=== PATIENT | female | born 1950 | race Caucasian/White ===

== ENCOUNTER 2019-12-05 18:24 | Emergency (ER) | payer OTHER, SELFPAY ==
[2019-12-05] VITALS (7 sets, daily range): BP systolic 108–135; BP diastolic 74–94; PULSE 62–109; RESP 13–19; TEMP 36.5–37.2; O2SAT 99–100
--- NOTE | ~2019-12-05 | XR_ITS ---
EXAMINATION: XR hip LT min 3V w AP pelvis EXAM DATE: 12/05/2019 18:58 INDICATION: Fall, left hip pain. TECHNIQUE: Left hip frontal, crosstable lateral projections for interpretation. Frontal projection pe lvis. Comparison is made to prior examination from 06/30/2018. FINDINGS: There is mild symmetric bilateral hip primary osteoarthritis. No evidence of hip avascular necrosis. Sacrum, sacroiliac joints, sacral arcuate lines are intact. There are no acute fractures or dislocations identified. There is no subcutaneous gas. The soft tissue is unremarkable. There are no radiopaque foreign bodies. IMPRESSION: Mild symmetric bilateral hip osteoarthritis. Reviewed, dictated and finalized at location A.
--- NOTE | ~2019-12-05 | CT_ITS ---
EXAMINATION: CT brain wo con, CT cervical spine wo con EXAM DATE: 12/05/2019 19:26 INDICATION: Fall, head injury. TECHNIQUE: Spiral CT of the head was performed without contrast. Axial, coronal and sagittal images were reviewed. Spiral CT of the cervical spine was performed without contrast. Axial images were rev iewed. Coronal and sagittal reformatted images were also reviewed. The dose-length product (DLP) fo r this examination was 529.67 (accession [id number]), 106.41 (accession [id number]) mGy-cm. The exposure was tailored according to patient size, and iterative reconstruction (ASIR) was used as additional dose reduction technique. Comparison is made to prior examination from 04/28/2016. FINDINGS: HEAD CT: There is no acute intraparenchymal hemorrhage. No evidence of intraparenchymal brain mass l esion. No evidence of acute infarction. There is mild periventricular and subcortical hypodensity, n onspecific but probably related to small vessel ischemic disease. There is mild prominence of the s ulci and ventricles related to cerebral atrophy. There is intracranial carotid arteriosclerosis. There is no mass effect or midline shift. There is no obstructive hydrocephalus suspected. There are no extra-axial collections. There are no acute calvarial fractures. The orbits are unremarkable. Soft tissue is unremarkable. The visualized sinuses and mastoid air cells are well aerated. CERVICAL CT: There is no evidence of acute cervical fracture. The odontoid process is intact. Pre- dens space is normal. Prevertebral soft tissue is normal. There are no soft tissue abnormalities id entified. There is no disc space widening or traumatic vertebral body subluxation suspected. Cervic al fusion C3-7. Moderate cervical spondylosis. A detailed level by level evaluation of spondylosis c an be added as addendum if requested. IMPRESSION: 1. No acute intracranial or cervical findings. 2. Mild age-related findings. 3. Intact cervical fusion. Spondylosis. Reviewed, dictated and finalized at location A. IMPRESSION: 1. No acute intracranial or cervical findings. 2. Mild age-related findings. 3. Intact cervical fusion. Spondylosis.
--- NOTE | ~2019-12-05 | XR_ITS ---
EXAMINATION: XR chest 2V EXAM DATE: 12/05/2019 18:58 INDICATION: Weakness, several falls. TECHNIQUE: Frontal and lateral projections of the chest obtained and reviewed. Comparison is made to prior examination from 06/30/2018. FINDINGS: Moderate chronic hyperinflation. No confluent consolidation, pneumothorax or pleural effus ion suspected. Cardiomediastinal silhouette is normal. There are mild bony degenerative changes. Cerv ical fusion hardware. There is no significant interval change. IMPRESSION: 1. Hyperinflation Reviewed, dictated and finalized at location A. IMPRESSION: 1. Hyperinflation
--- NOTE | 2019-12-05 18:29 | ECG_ITS ---
Measurements Intervals [place] Rate: 83 P: 49 WI: 108 QRS: 52 QRSD: 85 T: 62 QT: 330 QTc: 389 Interpretive Statements SINUS RHYTHM WITH SHORT WI INTERVAL BASELINE ARTIFACT- I, II, III, AVR, AVL, AVF, V1-V2 BORDERLINE ECG Electronically Signed On 12-05-2019 19:44:57 CDT by Singh Holliday D.O.
--- NOTE | 2019-12-05 18:42 | PC.NURSE ---
Pt to XRAY via stretcher.
[2019-12-05 18:45] LABS: Basophils Percent Auto 0.4 % (0.2-1.2); Eosinophils Absolute Auto 0.1 K/mm3 (0-0.3); Eosinophils Percent Auto 1.2 % (0-4.4); Hematocrit 36.2 % (37.0-47.0); Hemoglobin 12.2 g/dL (12.0-15.0); Immature Granulocyte Absolute 0.01 K/mm3 (0.00-0.031); Immature Granulocyte Percent A 0.2 % (0-0.5); Lymphocytes Absolute Auto 1.34 K/mm3 (0.9-3.2); Lymphocytes Percent Auto 25.9 % (18.3-44.2); Mean Corpuscular HGB Conc 33.7 g/dl (32-36); Mean Corpuscular Hemoglobin 32.6 pg (26-34); Mean Corpuscular Volume 96.8 fl (80-100); Mean Platelet Volume 10.1 fl (7.4-10.4); Monocytes Absolute Auto 0.4 K/mm3 (0.1-0.6); Monocytes Percent Auto 7.7 % (2.6-8.5); Neutrophils Absolute Auto 3.3 K/mm3 (1.3-6.7); Neutrophils Percent Auto 64.6 % (45.5-73.1); Platelet Count Result 174 k/mm3 (150-375); Red Blood Count 3.74 M/mm3 (4.2-5.4); Red Cell Distribution Width 13.4 % (11.5-14.5); White Blood Count 5.2 K/mm3 (4.5-10.0)
[2019-12-05 18:55] LABS: Alanine Aminotransferase 40 U/L (4-35); Albumin Level 3.8 g/dL (3.5-5.1); Alkaline Phosphatase 53 U/L (38-126); Aspartate Amino Transferase 55 U/L (14-36); Bilirubin,Total 0.7 mg/dL (0.2-1.3); Blood Urea Nitrogen 13 mg/dL (7-17); Calcium 9.4 mg/dL (8.4-10.2); Carbon Dioxide 26 mmol/L (22-30); Chloride 103 mmol/L (98-107); Estimated CRCL calculation 62 ml/min; Estimated Glomerular Filt Rate > 60; Glucose 206 mg/dL (65-105); Potassium 3.7 mmol/L (3.4-5.0); Sodium 135 mmol/L (137-145)
--- NOTE | 2019-12-05 19:11 | ED.FALL ---
HPI - Fall General Chief Complaint: Fall Stated Complaint: BILATERAL LEG PAIN Time Seen by Provider: 12/05/19 18:59 History of Present Illness HPI Narrative: Patient presents with her daughter for weakness and a fall at home 3 days ago. She fell bruising her left hip, and has not been able to walk since. Usually she walks with a walker but now she says her feet will not touch the floor. She has a history of psoriatic arthritis, and has had a cervical fusion. She weighs 210 pounds now she is 126, without trying. She used to smoke, she does not drink or do drugs. She is retired. She has not been sick in the last week or 2. She has decreased her fluid intake because she cannot make it to the bathroom to urinate. She has been wearing a diaper. When she fell on 3 days ago, she needed to call several family members to help her get up. Her previous surgeries include cervical fusion hysterectomy cholecystectomy and right ankle repair. MD complaint: fall Onset (ago): day(s) Fall from: standing Fall witnessed: no Place fall occurred: home Loss of consciousness: none Prolonged down time: yes Symptoms prior to fall: none Context: history of frequent falls Location of injury: other (Left hip) Severity: severe Severity scale (1-10): 10 Quality: aching Associated symptoms (after fall): numbness (in her arms), weakness and unable to walk Related Data Home Medications Medication Instructions Recorded Confirmed fosinopril 10 mg PO DAILY 12/05/19 methotrexate sodium 2.5 mg PO WEEKLY 12/05/19 sulfasalazine 0.5 g PO BID 12/05/19 Allergies Allergy/AdvReac Type Severity Reaction Status Date / Time No Known Allergies Allergy Unverified 06/30/18 11:49 Review of Systems Review of Systems: Narrative: CONSTITUTIONAL: Denies fever, chills, or sweats. EYES: Denies visual changes, redness, or discharge. ENT: Denies rhinorrhea, congestion, sore throat, or otalgia. CARDIOVASCULAR: Denies chest pain, palpitations, or edema. RESPIRATORY: Denies cough or dyspnea. GASTROINTESTINAL: Denies abdominal pain, nausea, vomiting, or diarrhea. GENITOURINARY: Denies dysuria or hematuria. She has not been able to make it to the bathroom and had urinary incontinence. SKIN: Denies rash or itching. MUSCULOSKELETAL: He has pain all over including back pain, joint pain, or myalgia. NEUROLOGIC: Denies headache or weakness. She does have numbness and weakness in her arms. PSYCHIATRIC: Denies anxiety or depression. All systems reviewed & are unremarkable except as noted in HPI and below PMFSH Surgical History Surgical History (Updated 12/05/19 @ 19:22 by Denise Bender MD) History of cervical spinal arthrodesis History of cholecystectomy History of hysterectomy Social History Social History (Updated 12/05/19 @ 19:22 by Denise Bender MD) Smoking status: Former smoker Alcohol intake: never Substance use: never Exam Narrative: Exam Narrative: GENERAL: Well-appearing, well-nourished, and in no acute distress. HEAD: Normocephalic, atraumatic. EYES: PERRLA and EOMI. ENT: Nares clear, no rhinorrhea or epistaxis. Mucous membranes moist. NECK: Supple. CHEST: Clear to auscultation. No respiratory distress. HEART: Regular rate and rhythm. No murmur heard. Normal peripheral pulses. ABDOMEN: Soft, nontender, nondistended, normal active bowel sounds. EXTREMITIES: No edema. Keeps her right leg crossed over her left leg. SKIN: Warm, dry, no rash. Bruises on the left hip the right foot. NEURO: No focal deficits. Alert and oriented x3. PSYCH: Flat affect. Course Reevaluation(s) Reevaluation #1: Several visits to see the patient and her daughter, lastly went in to update them on the transfer to [facility]. This is to see the orthopedic spine service for her cervical stenosis and lumbar stenosis. Date: 12/05/19 Time: 21:56 Consultations Consultation #1: Called while she for the transfer, and the access nurse found that all of her studies a
[2019-12-05 19:14] LABS: Ethanol < 10 mg/dL (<10)
[2019-12-05] MEDS: ONDANSETRON INJ 4 MG/2 ML VIAL IV PUSH (19:29)
[2019-12-05] MEDS: MORPHINE SULFATE 2 MG/ML INJ IV PUSH ×2 (19:29→23:31)
[2019-12-05] MEDS: SODIUM CHLORIDE 0.9% IV 1,000 ML 999 ML IV CONT (19:30)
[2019-12-05 20:17] LABS: Add Urine Microscopic? YES; Appearance Urine Clear (Clear); Bilirubin Urine Negative (Negative); Blood Urine Negative (Negative); Color Urine Yellow (Yellow); Glucose Urine UA Negative (Negative); Ketones Urine Trace mg/dL (Negative); Leukocyte Esterase Ur Negative LEU/UL (Negative); Nitrate Urine Negative (Negative); Protein Urine Negative (Negative); RBC Urine 0-2 /hpf (0-2); Specific Grav Ur 1.012 (1.001-1.035); Urobilinogen Urine Negative mg/dL (<2.0); WBC Urine 0-3 /hpf
[2019-12-05 20:33] LABS: Barbiturate Screen Urine Negative (Negative); Benzodiazepines Screen Urine Negative (Negative)
[2019-12-05 20:36] LABS: Amphetamine Screen Urine Negative (Negative); Cannabinoid Screen Urine Negative (Negative); Cocaine Screen Urine Negative (Negative); Methadone Screen Urine Negative (Negative); Opiate Screen Urine Negative (Negative); Phencyclidine Screen Urine Negative (Negative)
--- NOTE | 2019-12-05 22:34 | PC.NURSE ---
Patient placed in [facility] per EDP Yulia via verbal order read-back.
--- NOTE | 2019-12-05 22:51 | PC.NURSE ---
2236 Called [facility] for transport to [facility]. ETA [phone] Called [facility] for transport to [facility]. 2241 Called [facility] for transport to [facility]. [facility] declined 2250 Called [facility] for transport to [facility]. [facility] declined.
--- NOTE | 2019-12-05 23:04 | PC.NURSE ---
[facility] called and updated eta to 2300 pending any 911 calls.
== END 2019-12-05 23:35 | disposition short-term general hospital (02) ==
PROVIDERS: Emergency Medicine; Emergency Provider Emergency Medicine
DX: R20.2 Paresthesia of skin (principal); R53.1 Weakness; R32 Unspecified urinary incontinence; L40.50 Arthropathic psoriasis, unspecified; S70.02XA Contusion of left hip, initial encounter; M16.0 Bilateral primary osteoarthritis of hip; Z98.1 Arthrodesis status; Z87.891 Personal history of nicotine dependence; W19.XXXA Unspecified fall, initial encounter
CPT/HCPCS: 36415; 51701; 70450; 71046; 72125; 73502; 80053; 80307; 81001; 85025; 93005; 96361; 96374; 96375; 96376; 99285; J2270; J2405; J7030; L0140

== ENCOUNTER 2024-02-03 15:01 | Inpatient (IN) | payer OTHER, SELFPAY ==
--- NOTE | ~2024-02-03 | XR_ITS ---
EXAMINATION: XR chest 1V portable DATE: 02/03/2024 19:16 INDICATION: Altered mental status. Pulmonary edema. TECHNIQUE: A single frontal view of the chest was obtained. COMPARISON: Chest 2 views 12/05/2019 FINDINGS: There is mild atelectasis at the lung bases. No pleural effusion or pneumothorax. The heart size is normal. There are changes of anterior and posterior fusion procedures in cervical thoracic s pine. IMPRESSION: 1. Mild atelectasis at the lung bases. Reviewed, dictated and finalized at location E.
[2024-02-03 15:04] VITALS: BP 144/85; PULSE 56; RESP 16; TEMP 36.7; O2SAT 100
--- NOTE | 2024-02-03 15:48 | ECG_ITS ---
Test Date: 2024-02-03 16:01:40 Measurements Intervals [place] Rate: 53 P: 45 ND: 116 QRS: 29 QRSD: 98 T: 47 QT: 437 QTc: 411 Interpretive Statements SINUS BRADYCARDIA WITH SHORT ND INTERVAL MINIMAL Q WAVES- INF/LAT LEADS BORDERLINE T WAVE ABNORMALITY- ANTERIOR LEADS BASELINE ARTIFACT- I, II, III, AVR, AVL, AVF, V1-6 BORDERLINE ECG No previous ECG available for comparison Electronically Signed On 02-03-2024 16:08:33 CDT by Singh Holliday D.O.
[2024-02-03 16:10] LABS: Basophils Percent Auto 0.5 % (0.2-1.2); Eosinophils Absolute Auto 0.2 K/mm3 (0-0.3); Eosinophils Percent Auto 3.8 % (0-4.4); Hematocrit 39.4 % (37.0-47.0); Hemoglobin 13.2 g/dL (12.0-15.0); Immature Granulocyte Absolute 0.01 K/mm3 (0.00-0.031); Immature Granulocyte Percent A 0.3 % (0-0.5); Lymphocytes Absolute Auto 1.09 K/mm3 (0.9-3.2); Lymphocytes Percent Auto 27.8 % (18.3-44.2); Mean Corpuscular HGB Conc 33.5 g/dl (32-36); Mean Corpuscular Hemoglobin 32.1 pg (26-34); Mean Corpuscular Volume 95.9 fl (80-100); Mean Platelet Volume 10.2 fl (7.4-10.4); Monocytes Absolute Auto 0.4 K/mm3 (0.1-0.6); Monocytes Percent Auto 10.7 % (2.6-8.5); Neutrophils Absolute Auto 2.2 K/mm3 (1.3-6.7); Neutrophils Percent Auto 56.9 % (45.5-73.1); Platelet Count Result 197 k/mm3 (150-375); Red Blood Count 4.11 M/mm3 (4.2-5.4); Red Cell Distribution Width 14.2 % (11.5-14.5); White Blood Count 3.9 K/mm3 (4.5-10.0)
[2024-02-03 16:20] LABS: Prothrombin Time 13.8 Seconds (11.1-14.7)
[2024-02-03 16:21] LABS: Partial Thromboplastin Time 25.3 Seconds (22.3-36.8)
[2024-02-03 16:28] LABS: Alanine Aminotransferase 33 U/L (6-35); Albumin Level 4.3 g/dL (3.5-5.1); Alkaline Phosphatase 64 U/L (38-126); Anion Gap 9 mmol/L (4-12); Aspartate Amino Transferase 36 U/L (14-36); Bilirubin,Total 0.8 mg/dL (0.2-1.3); Blood Urea Nitrogen 19 mg/dL (7-17); Calcium 9.7 mg/dL (8.4-10.2); Carbon Dioxide 35 mmol/L (22-30); Chloride 97 mmol/L (98-107); Estimated Glomerular Filt Rate > 60; Glucose 90 mg/dL (65-110); Potassium 2.7 mmol/L (3.4-5.0); Sodium 141 mmol/L (137-145)
[2024-02-03 16:42] VITALS: BP 117/83; PULSE 100; RESP 18; O2SAT 95
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
[2024-02-03 17:41] VITALS: BP 128/81; PULSE 51; RESP 16; O2SAT 100
[2024-02-03 18:08] LABS: Add Urine Microscopic? YES; Appearance Urine Turbid (Clear); Bacteria Urine 4+ /hpf; Bilirubin Urine Negative (Negative); Blood Urine Negative (Negative); Color Urine Dark Yellow (Yellow); Glucose Urine UA Negative (Negative); Ketones Urine Negative (Negative); Leukocyte Esterase Ur 2+ LEU/UL (Negative); Need Manual Microscopic Reviewed; Nitrate Urine Negative (Negative); Non Pathogenic Casts 0-2; Protein Urine Trace mg/dL (Negative); Specific Grav Ur 1.023 (1.001-1.035); Squamous Epithelial Cell Urine Many /hpf (Few); WBC Urine >100 /hpf (0-3)
[2024-02-03] MEDS: SODIUM CHLORIDE 0.9% IV 1,000 ML 999 ML IV CONT (18:58)
[2024-02-03] MEDS: cefTRIAXone 2 GM/NS 100 ML 2 GM/100 ML BAG IVPB (19:00)
[2024-02-03] MEDS: POTASSIUM CHLORIDE 20 MEQ PACKET (FOR LIQUID) 40 MEQ PO (19:02)
--- NOTE | 2024-02-03 19:27 | PM.IMHP ---
H&P: HPI History of Present Illness Date/Time: 02/03/24 19:27 Chief Complaint: ams Narrative: This is a 73-year-old female with past medical history significant for dementia, osteoporosis, dyslipidemia. patient was brought to the emergency room due to being unable to care for self she lives alone family was concerned for the patient's progressively worsening dementia unable to care for self. Here in emergency room preliminary workup was significant for urinalysis was numerous WBCs. patient is unable to contribute in a meaningful way to history taking EXAMINATION: XR chest 1V portable DATE: 02/03/2024 19:16 INDICATION: Altered mental status. Pulmonary edema. TECHNIQUE: A single frontal view of the chest was obtained. COMPARISON: Chest 2 views 12/05/2019 FINDINGS: There is mild atelectasis at the lung bases. No pleural effusion or pneumothorax. The heart size is normal. There are changes of anterior and posterior fusion procedures in cervical thoracic spine. IMPRESSION: 1. Mild atelectasis at the lung bases. Review of Systems Review of Systems: ROS unobtainable: Yes unobtainable due to mental status [facility] Surgical History Surgical History History of cervical spinal arthrodesis History of cholecystectomy History of hysterectomy Family History Family History (Updated 02/03/24 @ 21:20 by Loli Shore RN) Sibling Asthma Father Dementia Mother Breast cancer Social History Social History Smoking status: Former smoker Alcohol intake: never Substance use: never Do You Feel Safe in your Home?: Yes Lack of Transportation: No Lack of Food: Never True Current Housing: I Have Housing Concerned About Future Housing: No Difficulty Paying Gas/Electric Bills: No Difficulty Paying for Meds: No Currently Unemployed: No Education: High School Diploma/GED Difficulty w/ Childcare or Family Care: No Gender identity (if verbalized by the patient): Female Spiritual care concerns: No Meds Home Medications and Allergies Home Medications Medication Instructions Recorded Confirmed Type sulfasalazine 500 mg tablet 0.5 g PO BID 12/05/19 02/03/24 History Aspirin Low-Strength 81 mg PO DAILY 02/03/24 02/03/24 History alendronate 70 mg tablet 70 mg PO WEEKLY 02/03/24 02/03/24 History atorvastatin 10 mg tablet 10 mg PO DAILY 02/03/24 02/03/24 History cholecalciferol (vitamin D3) 25 25 mcg PO DAILY 02/03/24 02/03/24 History mcg (1,000 unit) tablet donepezil 5 mg tablet 5 mg PO DAILY 02/03/24 02/03/24 History duloxetine 20 mg capsule,delayed 20 mg PO DAILY 02/03/24 02/03/24 History release hydrocortisone 2.5 % lotion 2.5 applic topical BID 02/03/24 02/03/24 History pyridoxine (vitamin B6) 100 mg 100 mg PO DAILY 02/03/24 02/03/24 History tablet quetiapine 25 mg tablet 25 mg PO HS 02/03/24 02/03/24 History trazodone 50 mg tablet 50 mg PO HS 02/03/24 02/03/24 History Allergies Allergy/AdvReac Type Severity Reaction Status Date / Time No Known Allergies Allergy Unverified 06/30/18 11:49 Vital Signs Vital Signs - 24 hr 02/03/24 15:04 02/03/24 16:42 02/03/24 17:41 Temperature 98.0 F Pulse Rate 56 L 100 51 L Respiratory Rate 16 18 16 Blood Pressure 144/85 H 117/83 128/81 Pulse Oximetry 100 95 100 Oxygen Delivery Room Air Exam Narrative: lying in bed Const: General: comfortable, no acute distress, well developed, alert, awake and average body habitus Nutritional Appearance: average body habitus Orientation/consciousness: oriented to person HENMT: Head: normal to inspection, normocephalic and atraumatic Ears: hearing grossly normal bilaterally Face/Nose/Sinus: normal facial exam Face and sinus: normal facial exam Eyes: General: appearance normal, both eyes and all related structures Pupils: Equal, round and reactive pupils present
[2024-02-03] MEDS: POTASSIUM CHLORIDE INJ 40 MEQ in SODIUM CHLORIDE 0.9% IV 500 ML 130 MEQ IVPB (19:46)
[2024-02-03 19:51] VITALS: BP 131/80; PULSE 57; RESP 16; O2SAT 100
[2024-02-03 20:47] LABS: NT Pro B Type Natriuretic Pept 59 pg/mL (19.9-100); Troponin I < 0.012 ng/mL (0.000-0.034)
[2024-02-03 21:10] VITALS: BP 140/67; PULSE 56; RESP 16; TEMP 36.6; O2SAT 98; BMI 24.8
--- NOTE | 2024-02-03 21:14 | ADMGEN ---
This patient, Whit Dia, was admitted to Medical Room 241-01. Patient/family oriented to hospital policies and general routines including ID bracelet, bed and alarms, visiting hours, pain management, procedures, bathroom and other care routines, personal items, smoking policy, room service/diet, and visiting hours. Information on how to activate the Rapid Response Team has been discussed. Patient/Family are encouraged to report perceived risks to care and to ask questions if they do not understand what they are told or what they should do.
[2024-02-03 23:33] LABS: Troponin I < 0.012 ng/mL (0.000-0.034)
[2024-02-04] VITALS (10 sets, daily range): BP systolic 124–129; BP diastolic 65–71; PULSE 52–74; RESP 12–18; TEMP 36.4–36.8; O2SAT 98–100
[2024-02-04 02:40] LABS: Troponin I < 0.012 ng/mL (0.000-0.034)
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
[2024-02-04] MEDS: ASPIRIN 81 MG CHEWABLE TABLET PO (09:45)
[2024-02-04] MEDS: DULoxetine HCL 20 MG CAPSULE.DR PO (09:45)
[2024-02-04] MEDS: CHOLECALCIFEROL 1,000 UNITS TABLET 1000 UNITS PO (09:45)
[2024-02-04] MEDS: PYRIDOXINE HCL 50 MG TABLET 100 MG PO (09:45)
[2024-02-04] MEDS: DONEPEZIL HCL 5 MG TABLET PO (09:45)
[2024-02-04] MEDS: sulfaSALAzine 500 MG TABLET PO ×2 (09:46→20:56)
[2024-02-04] MEDS: ATORVASTATIN 10 MG TABLET PO (09:46)
[2024-02-04 10:45] LABS: Basophils Percent Auto 0.6 % (0.2-1.2); Eosinophils Absolute Auto 0.1 K/mm3 (0-0.3); Eosinophils Percent Auto 2.3 % (0-4.4); Hematocrit 39.9 % (37.0-47.0); Hemoglobin 13.7 g/dL (12.0-15.0); Immature Granulocyte Absolute 0.02 K/mm3 (0.00-0.031); Immature Granulocyte Percent A 0.4 % (0-0.5); Lymphocytes Absolute Auto 0.77 K/mm3 (0.9-3.2); Lymphocytes Percent Auto 14.6 % (18.3-44.2); Mean Corpuscular HGB Conc 34.3 g/dl (32-36); Mean Corpuscular Hemoglobin 32.3 pg (26-34); Mean Corpuscular Volume 94.1 fl (80-100); Mean Platelet Volume 10.2 fl (7.4-10.4); Monocytes Absolute Auto 0.4 K/mm3 (0.1-0.6); Monocytes Percent Auto 8.2 % (2.6-8.5); Neutrophils Absolute Auto 3.9 K/mm3 (1.3-6.7); Neutrophils Percent Auto 73.9 % (45.5-73.1); Platelet Count Result 184 k/mm3 (150-375); Red Blood Count 4.24 M/mm3 (4.2-5.4); Red Cell Distribution Width 13.9 % (11.5-14.5); White Blood Count 5.3 K/mm3 (4.5-10.0)
[2024-02-04 10:56] LABS: Alanine Aminotransferase 28 U/L (6-35); Albumin Level 3.9 g/dL (3.5-5.1); Alkaline Phosphatase 55 U/L (38-126); Anion Gap 10 mmol/L (4-12); Aspartate Amino Transferase 35 U/L (14-36); Bilirubin,Total 0.8 mg/dL (0.2-1.3); Blood Urea Nitrogen 14 mg/dL (7-17); Calcium 9.1 mg/dL (8.4-10.2); Carbon Dioxide 25 mmol/L (22-30); Chloride 105 mmol/L (98-107); Estimated CRCL calculation 70 ml/min; Estimated Glomerular Filt Rate > 60; Glucose 120 mg/dL (65-110); Potassium 3.5 mmol/L (3.4-5.0); Sodium 140 mmol/L (137-145)
[2024-02-04] MEDS: cefTRIAXone 2 GM/NS 100 ML 2 GM/100 ML BAG IVPB (17:43)
[2024-02-04] MEDS: ENOXAPARIN 40 MG/0.4 ML SYRINGE SUB-Q (17:43)
[2024-02-04] MEDS: QUEtiapine FUMARATE 25 MG TABLET PO (20:56)
[2024-02-04] MEDS: traZODone HCL 50 MG TABLET PO (20:56)
[2024-02-05] VITALS (10 sets, daily range): BP systolic 128–143; BP diastolic 75–83; PULSE 54–89; RESP 16–20; TEMP 36.5–36.6; O2SAT 97–100
[2024-02-05 04:46] LABS: Basophils Percent Auto 0.5 % (0.2-1.2); Eosinophils Absolute Auto 0.2 K/mm3 (0-0.3); Eosinophils Percent Auto 4.4 % (0-4.4); Hematocrit 36.9 % (37.0-47.0); Hemoglobin 12.3 g/dL (12.0-15.0); Immature Granulocyte Absolute 0.01 K/mm3 (0.00-0.031); Immature Granulocyte Percent A 0.2 % (0-0.5); Lymphocytes Absolute Auto 1.23 K/mm3 (0.9-3.2); Lymphocytes Percent Auto 28.7 % (18.3-44.2); Mean Corpuscular HGB Conc 33.3 g/dl (32-36); Mean Corpuscular Hemoglobin 31.5 pg (26-34); Mean Corpuscular Volume 94.6 fl (80-100); Mean Platelet Volume 10.6 fl (7.4-10.4); Monocytes Absolute Auto 0.4 K/mm3 (0.1-0.6); Monocytes Percent Auto 9.8 % (2.6-8.5); Neutrophils Absolute Auto 2.4 K/mm3 (1.3-6.7); Neutrophils Percent Auto 56.4 % (45.5-73.1); Platelet Count Result 153 k/mm3 (150-375); Red Cell Distribution Width 14.2 % (11.5-14.5); White Blood Count 4.3 K/mm3 (4.5-10.0)
[2024-02-05 05:01] LABS: Alanine Aminotransferase 22 U/L (6-35); Alkaline Phosphatase 50 U/L (38-126); Anion Gap 7 mmol/L (4-12); Aspartate Amino Transferase 26 U/L (14-36); Bilirubin,Total 0.4 mg/dL (0.2-1.3); Blood Urea Nitrogen 12 mg/dL (7-17); Carbon Dioxide 30 mmol/L (22-30); Chloride 103 mmol/L (98-107); Estimated CRCL calculation 61 ml/min; Estimated Glomerular Filt Rate > 60; Glucose 79 mg/dL (65-110); Potassium 3.4 mmol/L (3.4-5.0); Sodium 140 mmol/L (137-145)
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
[2024-02-05] MEDS: DULoxetine HCL 20 MG CAPSULE.DR PO (08:24)
[2024-02-05] MEDS: ATORVASTATIN 10 MG TABLET PO (08:25)
[2024-02-05] MEDS: CHOLECALCIFEROL 1,000 UNITS TABLET 1000 UNITS PO (08:25)
[2024-02-05] MEDS: PYRIDOXINE HCL 50 MG TABLET 100 MG PO (08:25)
[2024-02-05] MEDS: DONEPEZIL HCL 5 MG TABLET PO (08:25)
[2024-02-05] MEDS: sulfaSALAzine 500 MG TABLET PO ×2 (08:25→20:34)
[2024-02-05] MEDS: ASPIRIN 81 MG CHEWABLE TABLET PO (08:25)
[2024-02-05] MEDS: traZODone HCL 50 MG TABLET PO (20:34)
[2024-02-05] MEDS: SULFAMETHOXAZOLE/TRIMETHOPRIM 800/160 MG DS TABLET 1 TAB PO (20:34)
[2024-02-05] MEDS: QUEtiapine FUMARATE 25 MG TABLET PO (20:34)
[2024-02-06] VITALS (8 sets, daily range): BP systolic 117–145; BP diastolic 72–85; PULSE 63–89; RESP 16–18; TEMP 36.3–36.9; O2SAT 95–99; BMI 24.8
[2024-02-06 05:06] LABS: Basophils Percent Auto 0.6 % (0.2-1.2); Eosinophils Absolute Auto 0.2 K/mm3 (0-0.3); Eosinophils Percent Auto 4.7 % (0-4.4); Hematocrit 36.9 % (37.0-47.0); Hemoglobin 12.3 g/dL (12.0-15.0); Immature Granulocyte Absolute 0.02 K/mm3 (0.00-0.031); Immature Granulocyte Percent A 0.4 % (0-0.5); Lymphocytes Absolute Auto 1.23 K/mm3 (0.9-3.2); Lymphocytes Percent Auto 26.4 % (18.3-44.2); Mean Corpuscular HGB Conc 33.3 g/dl (32-36); Mean Corpuscular Hemoglobin 31.8 pg (26-34); Mean Corpuscular Volume 95.3 fl (80-100); Mean Platelet Volume 10.7 fl (7.4-10.4); Monocytes Absolute Auto 0.6 K/mm3 (0.1-0.6); Monocytes Percent Auto 12.4 % (2.6-8.5); Neutrophils Absolute Auto 2.6 K/mm3 (1.3-6.7); Neutrophils Percent Auto 55.5 % (45.5-73.1); Platelet Count Result 154 k/mm3 (150-375); Red Blood Count 3.87 M/mm3 (4.2-5.4); Red Cell Distribution Width 14.2 % (11.5-14.5); White Blood Count 4.7 K/mm3 (4.5-10.0)
[2024-02-06 05:22] LABS: Alanine Aminotransferase 19 U/L (6-35); Alkaline Phosphatase 49 U/L (38-126); Anion Gap 6 mmol/L (4-12); Aspartate Amino Transferase 25 U/L (14-36); Bilirubin,Total 0.7 mg/dL (0.2-1.3); Blood Urea Nitrogen 9 mg/dL (7-17); Calcium 9.1 mg/dL (8.4-10.2); Carbon Dioxide 29 mmol/L (22-30); Chloride 105 mmol/L (98-107); Estimated CRCL calculation 61 ml/min; Estimated Glomerular Filt Rate > 60; Glucose 85 mg/dL (65-110); Potassium 3.3 mmol/L (3.4-5.0); Sodium 140 mmol/L (137-145)
[2024-02-06] MEDS: SULFAMETHOXAZOLE/TRIMETHOPRIM 800/160 MG DS TABLET 1 TAB PO (08:31)
[2024-02-06] MEDS: CHOLECALCIFEROL 1,000 UNITS TABLET 1000 UNITS PO (08:31)
[2024-02-06] MEDS: ATORVASTATIN 10 MG TABLET PO (08:31)
[2024-02-06] MEDS: DONEPEZIL HCL 5 MG TABLET PO (08:31)
[2024-02-06] MEDS: PYRIDOXINE HCL 50 MG TABLET 100 MG PO (08:32)
[2024-02-06] MEDS: ASPIRIN 81 MG CHEWABLE TABLET PO (08:32)
[2024-02-06] MEDS: DULoxetine HCL 20 MG CAPSULE.DR PO (08:32)
[2024-02-06] MEDS: POTASSIUM CHLORIDE 20 MEQ ER TABLET 40 MEQ PO (08:32)
[2024-02-06] MEDS: sulfaSALAzine 500 MG TABLET PO (08:33)
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
== END 2024-02-06 20:55 | DRG 690 ==
LOC: ANHED 16:43 → ANH2MED 20:44
PROVIDERS: Admitting Provider Internal Medicine; Emergency Provider Emergency Medicine; PCP Physician Assistant; Visit Provider Student in an Organized Health Care Education/Training Program
DX: N39.0 Urinary tract infection, site not specified (principal); Z16.11 Resistance to penicillins; Z16.29 Resistance to other single specified antibiotic; B95.7 Other staphylococcus as the cause of diseases classified elsewhere; F03.90 Unspecified dementia, unspecified severity, without behavioral disturbance, psychotic disturbance, mood disturbance, and anxiety; E87.6 Hypokalemia; E78.5 Hyperlipidemia, unspecified; M81.0 Age-related osteoporosis without current pathological fracture; W19.XXXA Unspecified fall, initial encounter; Z87.891 Personal history of nicotine dependence; Z98.1 Arthrodesis status; Z90.49 Acquired absence of other specified parts of digestive tract; Z90.710 Acquired absence of both cervix and uterus
CPT/HCPCS: 36415; 71045; 80053; 81001; 83880; 84484; 85025; 85610; 85730; 87086; 87181; 93005; 96365; 97110; 97161; 97165; 97530; 97535; 99285; A9270; J0696; J1650; J3480; J7030; J7040

== ENCOUNTER 2024-03-02 05:03 | Emergency (ER) | payer OTHER, SELFPAY ==
--- NOTE | ~2024-03-02 | CT_ITS ---
CT head without contrast Indication: Head injury Technique: Serial scans were obtained through the brain without the administration of contrast. Dose reduction technique was used on this scan by utilizing automated exposure control and iterative recon struction technique. The dose-length product (DLP) was 529.67 mGy-cm. Findings: There is no evidence of intracranial hemorrhage, mass lesion, or acute infarct. The ventri cles and subarachnoid spaces are unremarkable. Mild low attenuation regions are seen within the periv entricular white matter bilaterally, likely representing changes from chronic microvascular ischemic disease. There is no evidence of edema, mass effect or midline shift. The visualized paranasal sinu ses and mastoid air cells are clear. Impression: No intracranial hemorrhage, mass, or acute infarct. Mild chronic white matter changes, as above. Reviewed, dictated and finalized at location . Impression: No intracranial hemorrhage, mass, or acute infarct. Mild chronic white matter changes, as above.
--- NOTE | ~2024-03-02 | CT_ITS ---
CT Facial Bones and Cervical Spine Clinical Indication: Head injury Technique: Contiguous axial scans were obtained through the facial bones and cervical spine followed by coronal and sagittal reconstructions. Dose reduction technique was used on this scan by utilizing automated exposure control and iterative reconstruction technique. The dose-length product (DLP) was 220.64 mGy-cm. COMPARISON: 12/05/2019 Findings: CT facial bones: No fractures are identified. The visualized paranasal sinuses are clear. Intraorbita l soft tissues appear normal. CT cervical spine: No fractures or subluxation. There is anterior fusion from C3 through C7. There i s posterior fusion from the C2-T1, with laminectomy defects of C3-C6. There are probable disc prosthe ses at C3-C4, C4-C5, C5-C6, and possibly C6-C7. Probable mild bilateral foraminal narrowing present a t C3-C4. There is probable bilateral neural foraminal narrowing at C5-C6 and C6-C7. No prevertebral s oft tissue swelling. Impression: No fracture is seen in the facial bones. No fracture or subluxation of the cervical spine. Extensive anterior and posterior fusion of the cervical spine, with laminectomies from C3 through C6. Please see details above. Reviewed, dictated and finalized at location . Impression: No fracture is seen in the facial bones. No fracture or subluxation of the cervical spine. Extensive anterior and posterior fusion of the cervical spine, with laminectomi es from C3 through C6. Please see details above.
[2024-03-02 05:02] VITALS: BP 138/92; PULSE 64; RESP 12; TEMP 36.7; O2SAT 100
[2024-03-02 05:10] VITALS: BP 138/92; PULSE 64; RESP 13; TEMP 36.7; O2SAT 100
--- NOTE | 2024-03-02 05:57 | ED.FALL ---
HPI - Fall General Chief Complaint: Fall Stated Complaint: GLF, ON ASA Source: patient and EMS Mode of arrival: EMS Limitations: no limitations History of Present Illness HPI Narrative: This is a 73-year-old female, with history of dementia with baseline A&Ox2, brought in by EMS from her custodial after an unwitnessed ground level fall. The patient states she was standing to use the restroom, when her unlocked wheelchair rolled away from her. She states she fell striking the right cheek on the ground but did not lose consciousness. She states she takes aspirin daily. She complains of mild, dull right cheek pain but has no other complaints at this time. Related Data Home Medications Medication Instructions Recorded Confirmed sulfasalazine 500 mg tablet 0.5 g PO BID 12/05/19 02/03/24 Aspirin Low-Strength 81 mg PO DAILY 02/03/24 02/03/24 alendronate 70 mg tablet 70 mg PO WEEKLY 02/03/24 02/03/24 atorvastatin 10 mg tablet 10 mg PO DAILY 02/03/24 02/03/24 cholecalciferol (vitamin D3) 25 25 mcg PO DAILY 02/03/24 02/03/24 mcg (1,000 unit) tablet donepezil 5 mg tablet 5 mg PO DAILY 02/03/24 02/03/24 duloxetine 20 mg capsule,delayed 20 mg PO DAILY 02/03/24 02/03/24 release hydrocortisone 2.5 % lotion 2.5 applic topical BID 02/03/24 02/03/24 pyridoxine (vitamin B6) 100 mg 100 mg PO DAILY 02/03/24 02/03/24 tablet quetiapine 25 mg tablet 25 mg PO HS 02/03/24 02/03/24 trazodone 50 mg tablet 50 mg PO HS 02/03/24 02/03/24 Allergies Allergy/AdvReac Type Severity Reaction Status Date / Time No Known Allergies Allergy Unverified 06/30/18 11:49 Review of Systems Review of Systems: All systems reviewed & are unremarkable except as noted in HPI and below PMFSH Past Medical History Medical History Dementia Psoriatic arthritis Surgical History Surgical History History of cervical spinal arthrodesis History of cholecystectomy History of hysterectomy Family History Family History Sibling Asthma Father Dementia Mother Breast cancer Social History Social History Smoking status: Former smoker Alcohol intake: never Substance use: never Do You Feel Safe in your Home?: Yes Lack of Transportation: No Lack of Food: Never True Current Housing: I Have Housing Concerned About Future Housing: No Difficulty Paying Gas/Electric Bills: No Difficulty Paying for Meds: No Currently Unemployed: No Education: High School Diploma/GED Difficulty w/ Childcare or Family Care: No Gender identity (if verbalized by the patient): Female Spiritual care concerns: No Exam Narrative: GENERAL: Well-developed, well-nourished, and in no acute distress. HEAD: Normocephalic, mild erythema and swelling over the right cheek. EYES: PERRLA and EOMI. ENT: Nares clear, no rhinorrhea or epistaxis. Mucous membranes moist. Oropharynx without tonsillar hypertrophy exudate or other lesions. NECK: Supple. No midline spine tenderness to palpation, no step-off or crepitus CHEST: Clear to auscultation. No respiratory distress. No wheezes rales or rhonchi HEART: Regular rate and rhythm. No murmur heard. Normal peripheral pulses. ABDOMEN: Soft, nontender, nondistended, normal active bowel sounds. BACK: No midline spine tenderness to palpation, no step-off or crepitus EXTREMITIES: Normal range of motion. No edema. SKIN: Warm, dry, no rash. NEURO: Alert and oriented x2. No focal deficit. Moving all 4 limbs spontaneously. Sensation intact bilaterally, cranial nerves 2-12 intact, no noted ataxia PSYCH: Normal mood and affect. Course Course Emergency Course: 06:20 - CT head negative for intracranial hemorrhage or skull fracture. CT cervical spine negative for fracture or dislocation. CT face negati
[2024-03-02] MEDS: ACETAMINOPHEN 500 MG TABLET 1000 MG PO (06:07)
[2024-03-02 09:15] VITALS: BP 142/87
== END 2024-03-02 09:17 ==
PROVIDERS: Emergency Provider Preventive Medicine Aerospace Medicine; PCP Physician Assistant
DX: S06.0X0A Concussion without loss of consciousness, initial encounter (principal); S00.83XA Contusion of other part of head, initial encounter; F03.90 Unspecified dementia, unspecified severity, without behavioral disturbance, psychotic disturbance, mood disturbance, and anxiety; Z87.891 Personal history of nicotine dependence; W18.39XA Other fall on same level, initial encounter; Y92.129 Unspecified place in nursing home as the place of occurrence of the external cause
CPT/HCPCS: 70450; 70486; 72125; 99284; A9270

== ENCOUNTER 2024-04-26 22:08 | Observation (INO) | payer OTHER, SELFPAY ==
--- NOTE | ~2024-04-26 | CT_ITS ---
EXAMINATION: CT abdomen pelvis w con DATE: 04/26/2024 23:42 INDICATION: Abdominal pain. TECHNIQUE: Computed tomography (CT) of the abdomen and pelvis was performed with 100 mL Omnipaque 350 intravenous contrast. Automated exposure control and iterative reconstruction technique were employe d. The dose-length product was 611.05 mGy-cm. COMPARISON: CT abdomen and pelvis 03/19/2016 FINDINGS: The visualized portions of the lung bases demonstrate mild atelectasis. No pleural effusion . The heart size is normal. No pericardial effusion. There are cysts in the liver measuring up to 20 mm. The gallbladder is absent. The spleen, pancreas, adrenal glands, and left kidney are normal. Ther e is a 5.3 cm cyst in right kidney. There are no dilated loops of bowel. The appendix is not visualiz ed. There are no pathologically enlarged lymph nodes. There is no free intraperitoneal fluid. There i s moderate lumbar spondylosis. IMPRESSION: 1. No etiology for the patient's symptoms. Reviewed, dictated and finalized at location A.
--- NOTE | ~2024-04-26 | CT_ITS ---
EXAMINATION: CT brain wo con DATE: 04/26/2024 23:42 INDICATION: Altered mental status. TECHNIQUE: Computed tomography (CT) of the head was performed without intravenous contrast. The mA wa s adjusted according to patient size. Iterative reconstruction technique was employed. The dose-lengt h product was 1592.49 mGy-cm. COMPARISON: Head CT 03/02/2024 FINDINGS: There are scattered areas of low attenuation in the cerebral white matter. There is no intr acranial hemorrhage, acute infarction, or abnormal intracranial mass lesion. The ventricles are ai l in size. The orbits are normal. The paranasal sinuses are clear. The mastoid air cells are normal. IMPRESSION: 1. Stable moderate nonspecific cerebral white matter disease, which likely represents chronic small v essel ischemic disease. Reviewed, dictated and finalized at location A. IMPRESSION: 1. Stable moderate nonspecific cerebral white matter disease, which likely repr esents chronic small vessel ischemic disease.
--- NOTE | ~2024-04-26 | XR_ITS ---
EXAMINATION: XR hip RT 2V w AP pelvis DATE: 04/26/2024 23:23 INDICATION: Right hip pain. TECHNIQUE: An anteroposterior view of the pelvis and 2 views of right hip were obtained. COMPARISON: Pelvis radiograph 12/05/2019 FINDINGS: Bone alignment is normal. No fracture. There is mild osteoarthritis of the hips. There is m oderate lumbar spondylosis. IMPRESSION: 1. Mild osteoarthritis of the hips. Reviewed, dictated and finalized at location A.
--- NOTE | ~2024-04-26 | XR_ITS ---
EXAMINATION: XR chest 1V DATE: 04/26/2024 23:23 INDICATION: Cough. TECHNIQUE: A single frontal view of the chest was obtained. COMPARISON: Chest single view 02/03/2024 FINDINGS: There are lucencies in the lungs, consistent with emphysema. No pleural effusion or pneumot horax. The heart size is normal. There are changes of anterior fusion procedure in cervical spine and posterior fusion procedure in cervical thoracic spine. IMPRESSION: 1. Emphysema. Reviewed, dictated and finalized at location A. IMPRESSION: 1. Emphysema.
--- NOTE | ~2024-04-26 | US_ITS ---
EXAMINATION:US venous doppler LE BI INDICATION:Leg swelling and tenderness TECHNIQUE: Multiple grayscale, color flow and Doppler images of the right and left lower extremity de ep venous systems were obtained and reviewed. COMPARISON:No prior studies for comparison. FINDINGS: The common femoral, superficial femoral and popliteal veins demonstrate normal respiratory variation, augmentation and compressibility. Color flow is also seen within the posterior tibial, pe roneal, greater saphenous and profunda veins. IMPRESSION: 1: No lower extremity deep venous thrombosis. Reviewed, dictated and finalized at location B.
--- NOTE | ~2024-04-26 | MR_ITS ---
MRI of the brain Clinical History: Altered mental status Technique: Axial and sagittal T1-weighted images were acquired. These were followed by axial T2-weigh ember, diffusion weighted, gradient, and FLAIR images. Following intravenous administration of 14 cc Mu ltiHance gadolinium, T1-weighted fat-sat imaging was performed in the axial and coronal planes. COMPARISON: 02/12/2015 Findings: Exam degraded by motion artifact. No evidence for acute infarct, intracranial hemorrhage, o r mass lesion. There are probable moderate to advanced chronic microvascular ischemic changes in the periventricular white matter bilaterally. Ventricles and subarachnoid spaces are minimally dilated. Orbits are unremarkable. Paranasal sinuses and mastoid air cells are clear. Major intracranial flow voids appear intact. Sagittal midline structures appear intact. No abnormal postcontrast enhancement identified. IMPRESSION: No acute infarct, intracranial hemorrhage, or mass lesion identified. Exam is somewhat degraded by mo tion artifact. Probable moderate to advanced chronic microvascular ischemic changes. Reviewed, dictated and finalized at location . IMPRESSION: No acute infarct, intracranial hemorrhage, or mass lesion identified. Exam is s omewhat degraded by motion artifact. Probable moderate to advanced chronic microvascular ischemic changes.
[2024-04-26 22:10] VITALS: PULSE 62; RESP 15; TEMP 36.2; O2SAT 96
--- NOTE | 2024-04-26 22:14 | ECG_ITS ---
Test Date: 2024-04-26 22:23:17 Measurements Intervals [place] Rate: 48 P: 82 NC: 126 QRS: 31 QRSD: 98 T: 40 QT: 424 QTc: 381 Interpretive Statements SINUS BRADYCARDIA Compared to ECG 02/03/2024 16:01:40 Short NC interval no longer present Electronically Signed On 04-27-2024 10:39:51 CDT by Duane Portillo M.D.
[2024-04-26 22:28] LABS: Basophils Percent Auto 0.3 % (0.2-1.2); Eosinophils Absolute Auto 0.1 K/mm3 (0-0.3); Eosinophils Percent Auto 1.9 % (0-4.4); Hematocrit 40.4 % (37.0-47.0); Hemoglobin 13.6 g/dL (12.0-15.0); Immature Granulocyte Absolute 0.01 K/mm3 (0.00-0.031); Immature Granulocyte Percent A 0.2 % (0-0.5); Lymphocytes Absolute Auto 1.21 K/mm3 (0.9-3.2); Lymphocytes Percent Auto 21.1 % (18.3-44.2); Mean Corpuscular HGB Conc 33.7 g/dl (32-36); Mean Corpuscular Hemoglobin 32.2 pg (26-34); Mean Corpuscular Volume 95.7 fl (80-100); Mean Platelet Volume 10.5 fl (7.4-10.4); Monocytes Absolute Auto 0.6 K/mm3 (0.1-0.6); Monocytes Percent Auto 10.1 % (2.6-8.5); Neutrophils Absolute Auto 3.8 K/mm3 (1.3-6.7); Neutrophils Percent Auto 66.4 % (45.5-73.1); Platelet Count Result 160 k/mm3 (150-375); Red Blood Count 4.22 M/mm3 (4.2-5.4); Red Cell Distribution Width 13.3 % (11.5-14.5); White Blood Count 5.7 K/mm3 (4.5-10.0)
[2024-04-26 22:38] LABS: Lactic Acid Reflex 0.9 mmol/L (0.7-2.0)
[2024-04-26 22:39] LABS: Add Urine Microscopic? NO; Alanine Aminotransferase 24 U/L (6-35); Albumin Level 3.9 g/dL (3.5-5.1); Alkaline Phosphatase 48 U/L (38-126); Anion Gap 4 mmol/L (4-12); Appearance Urine Clear (Clear); Aspartate Amino Transferase 35 U/L (14-36); Bilirubin Urine Negative (Negative); Bilirubin,Total 0.6 mg/dL (0.2-1.3); Blood Urea Nitrogen 16 mg/dL (7-17); Blood Urine Negative (Negative); Calcium 9.2 mg/dL (8.4-10.2); Carbon Dioxide 33 mmol/L (22-30); Chloride 101 mmol/L (98-107); Color Urine Yellow (Yellow); Estimated CRCL calculation 65 ml/min; Estimated Glomerular Filt Rate > 60; Glucose 94 mg/dL (65-110); Glucose Urine UA Negative (Negative); Ketones Urine Trace mg/dL (Negative); Leukocyte Esterase Ur Negative LEU/UL (Negative); Nitrate Urine Negative (Negative); Potassium 3.5 mmol/L (3.4-5.0); Protein Urine Negative (Negative); Sodium 138 mmol/L (137-145); Specific Grav Ur 1.025 (1.001-1.035); pH Urine 5.5 (5.0-9.0)
[2024-04-26 22:40] LABS: INR 1.1
[2024-04-26 22:41] LABS: Partial Thromboplastin Time 26.3 Seconds (22.3-36.8)
[2024-04-27 00:03] LABS: Troponin I < 0.012 ng/mL (0.000-0.034)
--- NOTE | 2024-04-27 00:12 | ED.GENADULT ---
HPI - General Adult General Chief complaint: Altered Mental Status Stated complaint: confusion Time Seen by Provider: 04/26/24 22:34 History of Present Illness HPI narrative: Patient 73-year-old female who presents emergency department with chief complaint of increasing confusion. The patient does have prior history of dementia and lives at home the patient's family noticed that she is been running around the room striking the wall and not acting appropriately we noticed that she was last normal this morning states she normally gets like this whenever she has a urinary tract infection. They report no fever the patient reports he has had discomfort throughout her abdomen Related Data Home Medications Medication Instructions Recorded Confirmed sulfasalazine 500 mg tablet 0.5 g PO BID 12/05/19 02/03/24 Aspirin Low-Strength 81 mg PO DAILY 02/03/24 02/03/24 alendronate 70 mg tablet 70 mg PO WEEKLY 02/03/24 02/03/24 atorvastatin 10 mg tablet 10 mg PO DAILY 02/03/24 02/03/24 cholecalciferol (vitamin D3) 25 25 mcg PO DAILY 02/03/24 02/03/24 mcg (1,000 unit) tablet donepezil 5 mg tablet 5 mg PO DAILY 02/03/24 02/03/24 duloxetine 20 mg capsule,delayed 20 mg PO DAILY 02/03/24 02/03/24 release hydrocortisone 2.5 % lotion 2.5 applic topical BID 02/03/24 02/03/24 pyridoxine (vitamin B6) 100 mg 100 mg PO DAILY 02/03/24 02/03/24 tablet quetiapine 25 mg tablet 25 mg PO HS 02/03/24 02/03/24 trazodone 50 mg tablet 50 mg PO HS 02/03/24 02/03/24 Allergies Allergy/AdvReac Type Severity Reaction Status Date / Time No Known Allergies Allergy Unverified 06/30/18 11:49 Review of Systems Review of Systems: A 10 system review of systems was completed on the patient and is negative except for what is stated in the HPI. Nursing and ancillary documentation was reviewed. [facility] Past Medical History Medical History Dementia Psoriatic arthritis Surgical History Surgical History History of cervical spinal arthrodesis History of cholecystectomy History of hysterectomy Family History Family History Sibling Asthma Father Dementia Mother Breast cancer Social History Social History Smoking status: Former smoker Alcohol intake: never Substance use: never Do You Feel Safe in your Home?: Yes Lack of Transportation: No Lack of Food: Never True Current Housing: I Have Housing Concerned About Future Housing: No Difficulty Paying Gas/Electric Bills: No Difficulty Paying for Meds: No Currently Unemployed: No Education: High School Diploma/GED Difficulty w/ Childcare or Family Care: No Gender identity (if verbalized by the patient): Female Spiritual care concerns: No Exam Narrative: GENERAL: Well-appearing, well-nourished, and in no acute distress. HEAD: Normocephalic, atraumatic. EYES: PERRLA and EOMI. ENT: Nares clear, no rhinorrhea or epistaxis. Mucous membranes moist. NECK: Supple. CHEST: Clear to auscultation. No respiratory distress. HEART: Regular rate and rhythm. No murmur heard. Normal peripheral pulses. ABDOMEN: Soft, diffuse mild tenderness, nondistended, normal active bowel sounds. EXTREMITIES: Normal range of motion mild tenderness to palpation right. No edema. SKIN: Warm, dry, no rash. NEURO: No focal deficits. Alert and oriented x2. PSYCH: Normal mood and affect. Course Vital Signs Vital signs: Vital Signs Temperature 36.2 C L 04/26/24 22:10 Pulse Rate 62 04/26/24 22:10 Respiratory Rate 15 04/26/24 22:10 Pulse Oximetry 96 04/26/24 22:10 Oxygen Delivery Room Air 04/26/24 22:10 Temperature 36.2 C L 04/26/24 22:10 Pulse Rate 62 04/26/24 22:10 Respiratory Rate 15 04/26/24 22:10 Pulse Oximetry
--- NOTE | 2024-04-27 00:22 | PM.IMHP ---
H&P: HPI History of Present Illness Date/Time: 04/27/24 00:22 Chief Complaint: ams Narrative: This is a 73-year-old female with past medical history significant for dementia, psoriatic arthritis, osteoporosis, gait disturbance. Patient uses wheelchair and walker she is able to transfer on her own, lives by herself and daughter checks in with her several times a day as well as neighbors. Patient was brought to the emergency room due to altered mental status, agitation, fidgety, confusion, patient kept running on to the keating in her wheelchair. Here she is confuse can not tell which he has at, denies any pain. Preliminary workup has been essentially nonrevealing. Patient has been admitted for further evaluation management and treatment. EXAMINATION: CT brain wo con DATE: 04/26/2024 23:42 INDICATION: Altered mental status. TECHNIQUE: Computed tomography (CT) of the head was performed without intravenous contrast. The mA was adjusted according to patient size. Iterative reconstruction technique was employed. The dose-length product was 1592.49 mGy-cm. COMPARISON: Head CT 03/02/2024 FINDINGS: There are scattered areas of low attenuation in the cerebral white matter. There is no intracranial hemorrhage, acute infarction, or abnormal intracranial mass lesion. The ventricles are normal in size. The orbits are normal. The paranasal sinuses are clear. The mastoid air cells are normal. IMPRESSION: 1. Stable moderate nonspecific cerebral white matter disease, which likely represents chronic small vessel ischemic disease. EXAMINATION: CT abdomen pelvis w con DATE: 04/26/2024 23:42 INDICATION: Abdominal pain. TECHNIQUE: Computed tomography (CT) of the abdomen and pelvis was performed with 100 mL Omnipaque 350 intravenous contrast. Automated exposure control and iterative reconstruction technique were employed. The dose-length product was 611.05 mGy-cm. COMPARISON: CT abdomen and pelvis 03/19/2016 FINDINGS: The visualized portions of the lung bases demonstrate mild atelectasis. No pleural effusion. The heart size is normal. No pericardial effusion. There are cysts in the liver measuring up to 20 mm. The gallbladder is absent. The spleen, pancreas, adrenal glands, and left kidney are normal. There is a 5.3 cm cyst in right kidney. There are no dilated loops of bowel. The appendix is not visualized. There are no pathologically enlarged lymph nodes. There is no free intraperitoneal fluid. There is moderate lumbar spondylosis. IMPRESSION: 1. No etiology for the patient's symptoms. Review of Systems Review of Systems: ROS unobtainable: Yes unobtainable due to mental status ( confused, agitated, delirious) PMFSH Past Medical History Medical History Dementia Psoriatic arthritis Surgical History Surgical History History of cervical spinal arthrodesis History of cholecystectomy History of hysterectomy Family History Family History Sibling Asthma Father Dementia Mother Breast cancer Social History Social History Smoking status: Former smoker Alcohol intake: never Substance use: never Substance use type: does not use Do You Feel Safe in your Home?: Yes Lack of Transportation: No Lack of Food: Never True Current Housing: I Have Housing Concerned About Future Housing: No Difficulty Paying Gas/Electric Bills: No Difficulty Paying for Meds: No Currently Unemployed: No Education: High School Diploma/GED Difficulty w/ Childcare or Family Care: No Gender identity (if verbalized by the patient): Female Spiritual care concerns: No Meds Home Medications and Allergies Home Medications Medication Instructions Recorded Confirmed Type sulfasalazine
[2024-04-27 00:45] LABS: Influenza A QL RT-PCR Negative (Negative); Influenza B QL RT-PCR Negative (Negative); RSV RNA, RT-PCR Negative (Negative); SARS-CoV-2 RNA PCR Negative (Negative)
[2024-04-27] MEDS: SODIUM CHLORIDE 0.9% IV 1,000 ML 999 ML IV CONT (00:47)
[2024-04-27 01:17] VITALS: BMI 25.4
--- NOTE | 2024-04-27 01:22 | ADMGEN ---
This patient, Whit Dia, was admitted to Medical Room 245-. Patient/family oriented to hospital policies and general routines including ID bracelet, bed and alarms, visiting hours, pain management, procedures, bathroom and other care routines, personal items, smoking policy, room service/diet, and visiting hours. Information on how to activate the Rapid Response Team has been discussed. Patient/Family are encouraged to report perceived risks to care and to ask questions if they do not understand what they are told or what they should do.
[2024-04-27 01:23] VITALS: BP 134/75; PULSE 112; RESP 18; TEMP 36.8; O2SAT 83
[2024-04-27 01:29] VITALS: BMI 23.1
[2024-04-27 02:15] VITALS: PULSE 112; RESP 18; O2SAT 83
[2024-04-27 02:29] LABS: Lactic Acid Reflex 0.8 mmol/L (0.7-2.0)
[2024-04-27 02:42] LABS: Troponin I < 0.012 ng/mL (0.000-0.034)
[2024-04-27 05:47] VITALS: BP 142/92; PULSE 84; RESP 18; TEMP 36.9; O2SAT 85
--- NOTE | 2024-04-27 07:10 | PM.IMPN ---
Progress Note: A&P Assessment and Plan (1) Altered mental status: Code(s): R41.82 - Altered mental status, unspecified Status: Acute Assessment and Plan: Patient has a history of dementia and lives on her own. Her daughter checks in on her frequently and has noticed she seems more altered than her baseline with agitation, fidgeting, and running into wall with her wheel chair. On arrival her vital signs were stable. Her labs are essentially unremarkable. Urinalysis was negative, quad viral screen negative, chest x-ray shows emphysema, head CT shows stable cerebral white matter disease, and CT abdomen is negative. EKG showed a sinus bradycardia with rate of 48. Unclear etiology. Does not seem to be exacerbation from infection as no source has been found, she's afebrile, and no leukocytosis. There is the possibility of stroke but she does not have any neuro deficit. Likely polypharmacy as the patient lives alone. Will attempt brain MRI today Holding trazodone, Seroquel on hold Resume donepezil and duloxetine Cardiac monitoring as she was bradycardic on arrival Hypoxia documented overnight (83%). ABG this morning. D-dimer pending. May need apnea link. (2) Weakness: Code(s): R53.1 - Weakness Status: Acute Assessment and Plan: PT/OT consulted fall precautions (3) Hypoxia: Code(s): R09.02 - Hypoxemia Status: Acute Assessment and Plan: Overnight vitals documented show hypoxia of 83-85% could be sleep apnea vs COPD as she has emphysema seen on chest x-ray concern her AMS could be from hypercarbia. Will check an ABG this morning. CO2 was 33 on BMP. Recent trauma as she has been running into keating, possible falls. D-dimer pending. She is not on anticogulation. oxygen as needed to maintain sats greater than 90%. Wean as tolerated. Subjective Date/time seen: 04/27/24 07:10 Interval history: No acute events overnight. Patient is resting in bed. She is oriented to self and to her family but otherwise is unable to answer my orientation questions. I discussed with family my concerns that the patient should no longer be living at home or dispensing her home medications. Apparently the last time the patient was here she was discharged to a retirement facility after determining she was non-decisional. Her family discharge her from the [facility] and she has returned living at home alone. Review of Systems Review of Systems: ROS unobtainable: Yes unobtainable due to mental status Exam Narrative: General: appears comfortable, in no acute distress Respiratory: breathing is unlabored with even chest rise/fall, lungs are clear without wheezing, rhonchi, and crackles Cardiovascular: Rate and rhythm regular, normal s1s2, no murmur Abdomen: Soft, round, non-tender, active bowel sounds Extremities: +2-3 BLE edema, no clubbing. Pulses 2/1 Neuro: A&O x 1 Skin: Warm, dry, intact, erythema to lower legs. Objective Data Vital Signs Vital Signs: Vital Signs - 24 hr 04/26/24 22:10 04/27/24 01:23 04/27/24 02:15 Temperature 97.2 F L 98.2 F Pulse Rate 62 112 H 112 H Respiratory Rate 15 18 18 Blood Pressure 134/75 Pulse Oximetry 96 83 L 83 L Oxygen Delivery Room Air Room Air 04/27/24 05:47 Temperature 98.5 F Pulse Rate 84 Respiratory Rate 18 Blood Pressure 142/92 H Pulse Oximetry 85 L Oxygen Delivery Intake/Output Intake/Output: Intake & Output 04/24/24 04/25/24 04/26/24 04/27/24 23:59 23:59 23:59 23:59 Intake Total 1100 Balance 1100 Meds/Results Medications: Active Medications Generic Name Dose Route Start Last Admin Trade Name Freq PRN Reason Stop Dose Admin Acetaminophen 650 mg 04/27/24 00:20 Acetaminophen 325 Mg Tablet PO Q4H PRN Mild Pain (1-3) or Fever Pyridoxine HCl 100 mg 04/27/24 09:00 Pyridoxine Hcl 50 Mg Tablet PO [facility] Sulfasalazine 500 mg 04/27/24 09:00 Sulfasalazi
[2024-04-27 07:32] VITALS: O2SAT 94
[2024-04-27 07:39] LABS: Alveolar/Arterial O2 Gradient 29.5 mmHg; Base Excess ABG 4.2 mEq/l (+/-2.0); Fractional Inspired Oxygen 21 %; HCO3 ABG 28.5 mEq/l (22.0-26.0); Oxygen Content ABG 17.3 %vol (16.0-22.0); Oxygen Saturation ABG 94.8 % (95.0-100.0); Oxyhemoglobin 93.9 % THb (90.0-100.0); PCO2 ABG 41.7 mmHg (35.0-45.0); PO2 ABG 70.3 mmHg (80.0-100.0); PO2 FiO2 Ratio Arterial Blood 3.35 %; Total Hemoglobin 13.1 g/dL (12.0-18.0); pH ABG 7.453 (7.350-7.450)
[2024-04-27 07:41] LABS: Device ROOM AIR; Modified Allen's Test Pass; Site Drawn LEFT BRACHIAL
[2024-04-27 09:18] LABS: D Dimer 0.83 ug/mL (<0.48)
[2024-04-27] MEDS: ASPIRIN 81 MG CHEWABLE TABLET PO (09:26)
[2024-04-27] MEDS: PYRIDOXINE HCL 50 MG TABLET 100 MG PO (09:26)
[2024-04-27] MEDS: ATORVASTATIN 10 MG TABLET PO (09:30)
[2024-04-27] MEDS: DULoxetine HCL 20 MG CAPSULE.DR PO (09:31)
[2024-04-27] MEDS: DONEPEZIL HCL 5 MG TABLET PO (09:31)
[2024-04-27] MEDS: sulfaSALAzine 500 MG TABLET PO (09:32)
[2024-04-27 14:00] VITALS: BP 107/57; PULSE 64; RESP 12; TEMP 36.6; O2SAT 99
[2024-04-27 16:11] LABS: NT Pro B Type Natriuretic Pept 375 pg/mL (19.9-100)
--- NOTE | 2024-04-27 17:38 | PM.DS ---
DS: Admitting Diagnosis Discharge Date 04/27/24 Admitting Diagnosis Altered mental status DS: Discharge Diagnosis Discharge Diagnosis (1) Altered mental status: Code(s): R41.82 - Altered mental status, unspecified Status: Acute (2) Weakness: Code(s): R53.1 - Weakness Status: Acute (3) Hypoxia: Code(s): R09.02 - Hypoxemia Status: Acute DS: Summary Hospital Course Reason for hospitalization: Altered mental status Hospital Course: This is a 73-year-old female with past medical history significant for dementia, psoriatic arthritis, osteoporosis, gait disturbance. The patient lives alone and her daughter and son-in-law had concerns that she was more confused than normal. They stated she was running her wheelchair into the keating and she seemed rather agitated. They were concerned that she had a urinary tract infection. Underwent thorough workup which showed no infection. Her vital signs and labs were fairly unremarkable. D-dimer was slightly elevated but normal with age adjustment. Brain MRI showed no acute infarct, intracranial hemorrhage, or mass lesion. She does have probable moderate to advanced chronic microvascular ischemic changes. She did have bilateral lower extremity swelling concerning for DVT. Venous Doppler was negative. It was felt that her symptoms were likely related to worsening dementia versus polypharmacy. The patient was discharged in care of her daughter. Her daughter is going to be managing her medications, at his home sirs is will continue, and patient will receive Meals through [employer]. Daughter and son-in-law are actively working to get her in to [facility]. We encourage placement in nursing but they adamantly declined. Overall she did was discharged home in stable condition. Time Spent with Patient Time attestation: Total time spent providing and/or coordinating discharge services:90 Exam Narrative: General: appears comfortable, in no acute distress Respiratory: breathing is unlabored with even chest rise/fall, lungs are clear without wheezing, rhonchi, and crackles Cardiovascular: Rate and rhythm regular, normal s1s2, no murmur Abdomen: Soft, round, non-tender, active bowel sounds Extremities: No cyanosis, clubbing. Pulses 2/2, bilateral lower extremity edema +2 Neuro: A&O x 1 Skin: Warm, dry, intact, generalized bruising DS: Data Data Completed and Pending Labs on day of discharge: Labs from last 24 hours 04/27/24 04/27/24 04/27/24 08:35 07:36 02:05 WBC RBC Hgb Hct MCV MCH MCHC RDW Plt Count MPV Immature Gran % (Auto) Neut % (Auto) Lymph % (Auto) [place] % (Auto) Eos % (Auto) Baso % (Auto) Lymph # (Auto) [place] # (Auto) Eos # (Auto) Baso # (Auto) Abs Immat Gran (auto) Absolute Neuts (auto) Absolute Nucleated RBC Nucleated RBC % PT INR APTT D-Dimer 0.83 H Puncture Site Left brachial ABG pH 7.453 H ABG pCO2 41.7 ABG pO2 70.3 L ABG PO2/FiO2 Ratio 3.35 ABG HCO3 28.5 H ABG O2 Saturation 94.8 L ABG O2 Content 17.3 ABG Base Excess 4.2 A-a Gradient 29.5 Oxyhemoglobin 93.9 Total Hemoglobin 13.1 O2 Delivery Device Room air O2 Liters/Min Not Reportable FiO2 21 Sodium Potassium Chloride Carbon Dioxide Anion Gap BUN Creatinine Estim Creat Clear Calc Estimated GFR Glucose Lactic Acid 0.8 Calcium Total Bilirubin AST ALT Alkaline Phosphatase Troponin I < 0.012 NT-Pro-B Natriuret Pep Total Protein Albumin Procalcitonin Urine Color Urine Appearance Urine pH Ur Specific [place] Urine Protein Urine Glucose (UA) Urine Ketones Ur Blood (Man) Urine Nitrate Urine Bilirubin Urine Urobilinogen Leukocyte Esterase Rfl Influenza A (RT-PCR) Influenza B (RT-PCR) RSV (RT
== END 2024-04-27 16:25 | disposition home or self-care (01) ==
LOC: ANHED 04-27 00:24 → ANH2MED 04-27 01:01
PROVIDERS: Admitting Provider Internal Medicine; Emergency Provider Emergency Medicine; PCP Physician Assistant; Visit Provider Nurse Practitioner Acute Care
DX: R41.82 Altered mental status, unspecified (principal); R53.1 Weakness; R09.02 Hypoxemia; R60.0 Localized edema; F03.90 Unspecified dementia, unspecified severity, without behavioral disturbance, psychotic disturbance, mood disturbance, and anxiety; M79.89 Other specified soft tissue disorders; L40.50 Arthropathic psoriasis, unspecified; M81.0 Age-related osteoporosis without current pathological fracture; R26.9 Unspecified abnormalities of gait and mobility; Z87.891 Personal history of nicotine dependence; Z11.52 Encounter for screening for COVID-19; W19.XXXA Unspecified fall, initial encounter; Z99.3 Dependence on wheelchair
CPT/HCPCS: 36415; 36600; 70450; 70553; 71045; 73502; 74177; 80053; 81003; 82805; 83605; 83880; 84145; 84484; 85018; 85025; 85380; 85610; 85730; 87637; 93005; 93970; 96360; 96361; 97161; 97166; 99285; A9270; A9577; G0378; J7030; Q9967

== ENCOUNTER 2024-10-30 16:41 | Observation (INO) | payer OTHER, SELFPAY ==
--- NOTE | ~2024-10-30 | XR_ITS ---
HISTORY: fall, right hip pain COMPARISON: None TECHNIQUE: 2 views of the right hip along with an AP view of the pelvis FINDINGS: No acute fracture or dislocation is identified. Superior lateral sclerosis of the bilateral femoral acetabular joint spaces are present consistent wi th osteoarthritis. Degenerative disease within the visualized portion of the lower lumbar spine. Fecal stasis within the colon. Age-appropriate mineralization. IMPRESSION: Degenerative disease, without acute fracture or dislocation. Reviewed, dictated and finalized at location A.
--- NOTE | ~2024-10-30 | CT_ITS ---
History: Altered mental status PROCEDURE: CT head without contrast. Examination is markedly limited secondary to significant motion artifact, despite repeated scanning. COMPARISON: 04/26/2024 TECHNIQUE: Axial imaging of the head performed from the skull base to the vertex without IV contrast. Sagittal a nd coronal reformations obtained. DLP: 1592 mGy-cm FINDINGS: The ventricles are enlarged. The dilatation of the ventricles is proportional to the degree of sulcal prominence, not uncommon in the senescent brain. Decreased attenuation is identified within the periventricular white matter, likely secondary to micr ovascular ischemic disease, in a patient of this age. There is no mass, mass effect or midline shift. There is no abnormal extra-axial fluid collection or intracranial hemorrhage. Visualized paranasal sinuses are clear. The mastoid air cells are well aerated. No acute displaced fractures within the overlying cranium. Impression: No acute intracranial hemorrhage or suspicious mass effect. Reviewed, dictated and finalized at location A. Impression: No acute intracranial hemorrhage or suspicious mass effect.
--- NOTE | ~2024-10-30 | CT_ITS ---
History: Fall from a seated position PROCEDURE: CT cervical spine without intravenous contrast. Examination is markedly limited secondary to motion artifact, despite multiple repeated attempts at s sivakumar. COMPARISON: 03/02/2024 TECHNIQUE: Multiple contiguous axial images of the cervical spine were performed without the administration of i ntravenous contrast. DLP: 144 mGy-cm FINDINGS: Anterior and posterior fixation hardware is identified. Apical scarring. The airway is patent. Impression: Limited evaluation of the cervical spine secondary to significant motion artifact, despite multiple r epeated attempts. Repeat evaluation after sedation is suggested if clinical suspicion persists. Reviewed, dictated and finalized at location A. Impression: Limited evaluation of the cervical spine secondary to significant motion artifa ct, despite multiple repeated attempts. Repeat evaluation after sedation is suggested if clinical suspicion persists.
--- NOTE | ~2024-10-30 | XR_ITS ---
CHEST RADIOGRAPH, PA AND LATERAL CLINICAL HISTORY: fall . COMPARISON: 04/26/2024 TECHNIQUE: PA and lateral views of the chest. FINDINGS The cardiomediastinal silhouette is unremarkable. Right sided pleural effusion, an interval change. The remainder of the lungs are clear. IMPRESSION: Right sided pleural effusion suspected without focal infiltration Reviewed, dictated and finalized at location A.
--- NOTE | ~2024-10-30 | CT_ITS ---
CLINICAL INDICATION: Left lower quadrant pain COMPARISON: 04/26/2024. TECHNIQUE: Multiple contiguous axial images of the abdomen and pelvis were performed following the ad ministration of with 100 mL Omnipaque-350 intravenous contrast The dose-length product (DLP) was 645.31 mGy-cm. Automated exposure control and iterative reconstruction technique were employed. FINDINGS/OBSERVATIONS: Visualized lower thorax: Trace bibasilar atelectasis. The remainder of the bilateral lung bases are clear. The right-sided pleural effusion suspected on plain film evaluation likely was secondary to elevation of the right hemidiaphragm. The heart is of normal size, without pericardial effusion. Small hiatal hernia is present. Liver: Multiple rounded foci of decreased attenuation are identified within the liver, unchanged from prior, likely representing cysts. The remainder of the liver demonstrates otherwise homogeneous enhancement and is not enlarged. Gallbladder and biliary system: The gallbladder is surgically absent. Pancreas: The pancreas enhances homogeneously without ductal dilatation. Spleen: The spleen enhances homogeneously and is not enlarged. Kidneys: Stable fluid attenuation foci within the right kidney, likely representing cysts. The remainder of the bilateral kidneys otherwise enhance symmetrically without hydronephrosis or man l calculi. Adrenal glands: Unremarkable. Gastrointestinal tract: Fecal stasis within the colon. Appendix: The appendix is not definitively visualized. However, no pericecal inflammatory change is identified suggest the presence of acute appendicitis. Vasculature: Calcified atherosclerotic disease. Lymph nodes: No pathologically enlarged or morphologically suspicious lymph nodes within the retroperitoneum or at the root of the mesentery. Pelvic structures: The bladder is significantly distended, occupying nearly the entirety of the pelvis. The uterus is surgically absent, or markedly atrophic. Body wall and musculoskeletal: Age appropriate degenerative disease within the lumbosacral spine. No acute fracture is initiated within the pelvis or bilateral hips. IMPRESSION: Significant bladder distention. No acute findings within the abdomen or pelvis to account for patient's left lower quadrant pain. Reviewed, dictated and finalized at location A. IMPRESSION: Significant bladder distention. No acute findings within the abdomen or pelvis to account for patient's left lo wer quadrant pain.
[2024-10-30 16:47] VITALS: BP 156/87; PULSE 87; RESP 16; TEMP 36.7; O2SAT 100
--- NOTE | 2024-10-30 17:07 | ED.FALL ---
HPI - Fall General Chief Complaint: Fall <Tara Caruso PA-C - Last Filed: 11/02/24 18:03> Stated Complaint: fall from wheelchair <Tara Caruso PA-C - Last Filed: 11/02/24 18:03> Time Seen by Provider: 10/30/24 17:07 <Tara Caruso PA-C - Last Filed: 11/02/24 18:03> Focused HPI: This is a 73 year old female that presents to the ER for a fall. Reports she was trying to stand up and fell. She believes she hit her head. She did not lose consciousness. Reports bilateral hip pain and neck pain. She is not on anticoagulation. GENERAL: Well-appearing, well-nourished, and in no acute distress. HEAD: Normocephalic, atraumatic. CHEST: Clear to auscultation. ?No respiratory distress. HEART: Regular rate and rhythm.? NEURO: ?Alert and oriented x3. Patient screened in triage and initial orders placed.? ?Additional care and disposition to be based upon?diagnostic testing and treatment. <Tara Caruso PA-C - Last Filed: 11/02/24 18:03> History of Present Illness HPI Narrative: HPI as above in medical screening exam. The patient's granddaughter and POA is at bedside. She notes that the patient has had increasing confusion and multiple falls. She has also been more combative than usual. She feels that she is not safe at her home and is requesting help for placement. Patient denies chest pain, nausea, vomiting or bleeding of any kind. She has no other complaints at this time. <Reinaldo Frey MD - Last Filed: 10/31/24 00:20> Related Data Home Medications: Home Medications ?Medication ?Instructions ?Recorded ?Confirmed ?Last Taken ?Type sulfasalazine 500 mg tablet 0.5 g PO BID 12/05/19 10/31/24 12/04/19 History quetiapine 25 mg tablet 25 mg PO HS 02/03/24 10/31/24 Unknown History hydrochlorothiazide 12.5 mg tablet 12.5 mg PO DAILY 10/31/24 10/31/24 Unknown History <Tara Caruso PA-C - Last Filed: 11/02/24 18:03> Allergies/Adverse Reactions: Allergies Allergy/AdvReac Type Severity Reaction Status Date / Time No Known Allergies Allergy Unverified 04/27/24 02:21 <Tara Caruso PA-C - Last Filed: 11/02/24 18:03> Review of Systems Review of Systems: All systems reviewed & are unremarkable except as noted in HPI and below <Reinaldo Frey MD - Last Filed: 10/31/24 00:20> PMFSH Past Medical History Medical History: Medical History Dementia Psoriatic arthritis <Tara Caruso PA-C - Last Filed: 11/02/24 18:03> Surgical History Surgical History: Surgical History History of cervical spinal arthrodesis History of cholecystectomy History of hysterectomy <Tara Caruso PA-C - Last Filed: 11/02/24 18:03> Family History Family History: Family History Sibling Asthma Father Dementia Mother Breast cancer <Tara Caruso PA-C - Last Filed: 11/02/24 18:03> Social History Social History: Social History Smoking status: Never smoker Second hand tobacco smoke exposure: No Alcohol intake: never Substance use: never Substance use type: does not use Do You Feel Safe in your Home?: Yes Lack of Transportation: No Lack of Food: Never True Current Housing: I Have Housing Concerned About Future Housing: No Difficulty Paying Gas/Electric Bills: No Difficulty Paying for Meds: No Currently Unemployed: No Education: Grade School Difficulty w/ Childcare or Family Care: No Gender identity (if verbalized by the patient): Female Spiritual care concerns: No <Tara Caruso PA-C - Last Filed: 11/02/24 18:03> Exam Narrative: GENERAL: Well-developed, well-nourished, and in no acute distress. HEAD: Normocephalic, atraumatic. EYES: PERRLA and EOMI. ENT: Nares clear, no rhinorrhea or epistaxis. Mucous membranes moist. Oropharynx without tonsillar hypertrophy exudate or other lesions. NECK: Supple. No midline spine tenderness to palpation, no step-off or crepitus. Range of motion of the neck intact CHEST: Clear to auscultation. No respiratory distress. No wheezes rales or rhonchi HEART: Regular rate and rhythm. No murmur heard. Normal peripheral pulses. ABDOMEN: Soft, nontender, nondistended, normal active bowel sounds. EXTREMITIES: Normal range of motion. Trace bilateral lower extremity edema SKIN: Warm, dry, no rash. NEURO: Alert and oriented x2. No focal deficit. Moving all 4 limbs spontaneously PSYCH: Normal mood and affect. <Reinaldo Frey MD - Last Filed: 10/31/24 00:20> Course Course Emergency Course: 00:14 - Labs delayed due to difficulty establishing line. CBC unremarkable. Chemistries demonstrate elevated bicarb of 32, elevated total CK of 400 but is otherwise unremarkable, including a normal creatinine of 0.7. Urinalysis not concerning for urinary tract infection. Urine drug screen negative. The patient tested negative for salicylates, acetaminophen and alcohol. CT abdomen pelvis demonstrated urinary bladder distention but is otherwise unremarkable. X-ray of the pelvis demonstrated arthritis but was not concerning for fracture or dislocation. Chest x-ray demonstrates right pleural effusion but is not concerning for focal consolidation or other acute abnormality. CT head negative for acute intracranial abnormality. CT cervical spine degraded by motion. The patient did not have any midline spine tenderness to palpation and has full range of motion of the neck. My suspicion for acute cervical spine injury is low at this time. The patient is not safe to return to her home alone and will require placement. I discussed the patient with hospitalist, Dr. Barrios who accepts admission. <Reinaldo Frey MD - Last Filed: 10/31/24 00:20> Vital Signs Vital signs: Vital Signs Temperature 98.0 F 10/30/24 16:47 Pulse Rate 87 10/30/24 16:47 Respiratory Rate 16 10/30/24 16:47 Blood Pressure 156/87 H 10/30/24 16:47 Pulse Oximetry 100 10/30/24 16:47 Oxygen Delivery Room Air 10/30/24 16:47 Temperature 98.0 F 11/02/24 13:56 Pulse Rate 80 11/02/24 13:56 Respiratory Rate 18 11/02/24 13:56 Blood Pressure 105/54 L 11/02/24 13:56 Pulse Oximetry 96 11/02/24 13:56 Oxygen Delivery Room Air 11/01/24 15:08 <Tara Caruso PA-C - Last Filed: 11/02/24 18:03> Vital Signs Temperature 98.0 F 10/30/24 16:47 Pulse Rate 87 10/30/24 16:47 Respiratory Rate 16 10/30/24 16:47 Blood Pressure 156/87 H 10/30/24 16:47 Pulse Oximetry 100 10/30/24 16:47 Oxygen Delivery Room Air 10/30/24 16:47 Temperature 98.0 F 11/02/24 13:56 Pulse Rate 80 11/02/24 13:56 Respiratory Rate 18 11/02/24 13:56 Blood Pressure 105/54 L 11/02/24 13:56 Pulse Oximetry 96 11/02/24 13:56 Oxygen Delivery Room Air 11/01/24 15:08 <Reinaldo Frey MD - Last Filed: 10/31/24 00:20> MDM - Fall MDM Narrative Medical decision making narrative: Plan: Imaging, labs, admission replacement <Reinaldo Frey MD - Last Filed: 10/31/24 00:20> Differential Diagnosis Differential diagnosis: Likely other (Intracranial hemorrhage, skull fracture, cervical spine fracture, pelvis fracture, rhabdomyolysis, diverticulitis, UTI, pneumonia, metabolic abnormality, drug/alcohol intoxication, other) <Reinaldo Frey MD - Last Filed: 10/31/24 00:20> Lab Data Result diagrams: 11/02/24 05:55 11/02/24 05:55 <Tara Caruso PA-C - Last Filed: 11/02/24 18:03> Labs: Lab Results 10/30/24 10/30/24 10/31/24 Range/Units 19:04 21:55 00:11 WBC 6.1 (4.5-10.0) K/mm3 RBC 3.98 L (4.2-5.4) M/mm3 Hgb 12.5 (12.0-15.0) g/dL Hct 38.4 (37.0-47.0) % MCV 96.5 (80-100) fl MCH 31.4 (26-34) pg MCHC 32.6 (32-36) g/dl RDW 13.4 (11.5-14.5) % Plt Count 160 (150-375) k/mm3 MPV 9.8 (7.4-10.4) fl Immature Gran % (Auto) 0.7 H (0-0.5) % Neut % (Auto) 75.7 H (45.5-73.1) % Lymph % (Auto) 12.2 L (18.3-44.2) % [place] % (Auto) 9.6 H (2.6-8.5) % Eos % (Auto) 1.5 (0-4.4) % Baso % (Auto) 0.3 (0.2-1.2) % Lymph # (Auto) 0.74 L (0.9-3.2) K/mm3 [place] # (Auto) 0.6 (0.1-0.6) K/mm3 Eos # (Auto) 0.1 (0-0.3) K/mm3 Baso # (Auto) 0.0 (0.0-0.1) K/mm3 Abs Immat Gran (auto) 0.04 H (0.00-0.031) K/mm3 Absolute Neuts (auto) 4.6 (1.3-6.7) K/mm3 Absolute Nucleated RBC 0.000 (0.0-0.012) K/mm3 Nucleated RBC % 0.0 (0.0-0.2) % % Immature Plt Fraction 2.3 (0.9-11.2) % Sodium 139 (137-145) mmol/L Potassium 3.7 (3.4-5.0) mmol/L Chloride 104 (98-107) mmol/L Carbon Dioxide 32 H (22-30) mmol/L Anion Gap 3 L (4-12) mmol/L BUN 13 (7-17) mg/dL Creatinine 0.77 (0.7-1.0) mg/dL Estim Creat Clear Calc 54 ml/min Estimated GFR > 60 (59 - ) Glucose 101 (65-110) mg/dL POC Capillary Glucose 86 (65-105) mg/dl Lactic Acid 0.8 (0.7-2.0) mmol/L Calcium 9.1 (8.4-10.2) mg/dL Total Bilirubin 0.6 (0.2-1.3) mg/dL AST 36 (14-36) U/L ALT 29 (6-35) U/L Alkaline Phosphatase 58 (38-126) U/L Ammonia < 9 L (9-30) umol/L Total Creatine Kinase 400 H (30-135) U/L Total Protein 6.0 L (6.3-8.2) g/dL Albumin 3.8 (3.5-5.1) g/dL Urine Color Yellow (Yellow) Urine Appearance Clear (Clear) Urine pH 7.0 (5.0-9.0) Ur Specific [place] 1.014 (1.001-1.035) Urine Protein Negative (Negative) mg/dL Urine Glucose (UA) Negative (Negative) mg/dL Urine Ketones Negative (Negative) mg/dL Ur Blood (Man) Negative (Negative) Urine Nitrate Negative (Negative) Urine Bilirubin Negative (Negative) Urine Urobilinogen 0.2 (<2.0) mg/dL Leukocyte Esterase Rfl Negative (Negative) SUKHDEV/UL Salicylates < 1.0 L (2-20) mg/dL Urine Opiates Screen Negative (Negative) Urine Methadone Screen Negative (Negative) Acetaminophen < 10 L (10-30) ug/mL Ur Barbiturates Screen Negative (Negative) Ur Phencyclidine Scrn Negative (Negative) Ur Amphetamine Screen Negative (Negative) U Benzodiazepines Scrn Negative (Negative) Urine Cocaine Screen Negative (Negative) U Cannabinoids Screen Negative (Negative) Ethyl Alcohol < 10 (<10) mg/dL <Tara Caruso PA-C - Last Filed: 11/02/24 18:03> Lab Results 10/30/24 10/30/24 10/31/24 Range/Units 19:04 21:55 00:11 WBC 6.1 (4.5-10.0) K/mm3 RBC 3.98 L (4.2-5.4) M/mm3 Hgb 12.5 (12.0-15.0) g/dL Hct 38.4 (37.0-47.0) % MCV 96.5 (80-100) fl MCH 31.4 (26-34) pg MCHC 32.6 (32-36) g/dl RDW 13.4 (11.5-14.5) % Plt Count 160 (150-375) k/mm3 MPV 9.8 (7.4-10.4) fl Immature Gran % (Auto) 0.7 H (0-0.5) % Neut % (Auto) 75.7 H (45.5-73.1) % Lymph % (Auto) 12.2 L (18.3-44.2) % [place] % (Auto) 9.6 H (2.6-8.5) % Eos % (Auto) 1.5 (0-4.4) % Baso % (Auto) 0.3 (0.2-1.2) % Lymph # (Auto) 0.74 L (0.9-3.2) K/mm3 [place] # (Auto) 0.6 (0.1-0.6) K/mm3 Eos # (Auto) 0.1 (0-0.3) K/mm3 Baso # (Auto) 0.0 (0.0-0.1) K/mm3 Abs Immat Gran (auto) 0.04 H (0.00-0.031) K/mm3 Absolute Neuts (auto) 4.6 (1.3-6.7) K/mm3 Absolute Nucleated RBC 0.000 (0.0-0.012) K/mm3 Nucleated RBC % 0.0 (0.0-0.2) % % Immature Plt Fraction 2.3 (0.9-11.2) % Sodium 139 (137-145) mmol/L Potassium 3.7 (3.4-5.0) mmol/L Chloride 104 (98-107) mmol/L Carbon Dioxide 32 H (22-30) mmol/L Anion Gap 3 L (4-12) mmol/L BUN 13 (7-17) mg/dL Creatinine 0.77 (0.7-1.0) mg/dL Estim Creat Clear Calc 54 ml/min Estimated GFR > 60 (59 - ) Glucose 101 (65-110) mg/dL POC Capillary Glucose 86 (65-105) mg/dl Lactic Acid 0.8 (0.7-2.0) mmol/L Calcium 9.1 (8.4-10.2) mg/dL Total Bilirubin 0.6 (0.2-1.3) mg/dL AST 36 (14-36) U/L ALT 29 (6-35) U/L Alkaline Phosphatase 58 (38-126) U/L Ammonia < 9 L (9-30) umol/L Total Creatine Kinase 400 H (30-135) U/L Total Protein 6.0 L (6.3-8.2) g/dL Albumin 3.8 (3.5-5.1) g/dL Urine Color Yellow (Yellow) Urine Appearance Clear (Clear) Urine pH 7.0 (5.0-9.0) Ur Specific [place] 1.014 (1.001-1.035) Urine Protein Negative (Negative) mg/dL Urine Glucose (UA) Negative (Negative) mg/dL Urine Ketones Negative (Negative) mg/dL Ur Blood (Man) Negative (Negative) Urine Nitrate Negative (Negative) Urine Bilirubin Negative (Negative) Urine Urobilinogen 0.2 (<2.0) mg/dL Leukocyte Esterase Rfl Negative (Negative) SUKHDEV/UL Salicylates < 1.0 L (2-20) mg/dL Urine Opiates Screen Negative (Negative) Urine Methadone Screen Negative (Negative) Acetaminophen < 10 L (10-30) ug/mL Ur Barbiturates Screen Negative (Negative) Ur Phencyclidine Scrn Negative (Negative) Ur Amphetamine Screen Negative (Negative) U Benzodiazepines Scrn Negative (Negative) Urine Cocaine Screen Negative (Negative) U Cannabinoids Screen Negative (Negative) Ethyl Alcohol < 10 (<10) mg/dL <Reinaldo Frey MD - Last Filed: 10/31/24 00:20> Imaging Data Radiologist's impression: ITS Impressions Chest X-Ray 10/30/24 18:01 IMPRESSION: Right sided pleural effusion suspected without focal infiltration Head CT 10/30/24 18:16 Impression: No acute intracranial hemorrhage or suspicious mass effect. Cervical Spine CT 10/30/24 18:18 Impression: Limited evaluation of the cervical spine secondary to significant motion artifact, despite multiple repeated attempts. Repeat evaluation after sedation is suggested if clinical suspicion persists. Hip/Pelvis X-Ray 10/30/24 18:22 IMPRESSION: Degenerative disease, without acute fracture or dislocation. Abdomen/Pelvis CT 10/30/24 23:43 IMPRESSION: Significant bladder distention. No acute findings within the abdomen or pelvis to account for patient's left lower quadrant pain. <Tara Caruso PA-C - Last Filed: 11/02/24 18:03> Critical Care Time Critical Care Time Critical Care Time: No <Tara Caruso PA-C - Last Filed: 11/02/24 18:03> Discharge Plan Discharge Clinical Impression: Elevated creatine kinase Altered mental status Qualifiers: Altered mental status type: unspecified Qualified Code(s): R41.82 - Altered mental status, unspecified Falls Qualifiers: Encounter type: initial encounter Qualified Code(s): W19.XXXA - Unspecified fall, initial encounter <Tara Caruso PA-C - Last Filed: 11/02/24 18:03> Patient Disposition: Still a Patient <Tara Caruso PA-C - Last Filed: 11/02/24 18:03> Condition: Improved <Tara Caruso PA-C - Last Filed: 11/02/24 18:03> Time of Disposition: 00:17 <Tara Caruso PA-C - Last Filed: 11/02/24 18:03> 00:17 <Reinaldo Frey MD - Last Filed: 10/31/24 00:20>
--- OUTSIDE RECORDS SUMMARY | 2024-10-30 17:09 | XMS_ITS | Encounter Summary ---
Author Organization [facility] Address [address] [place] [address] Phone Care Team Providers Care Instructor Trainer Canine Service Name Role Phone Vimal Florence MD Primary Care Provider [phone] Joey Blake MD Primary Care Provider [phone] Vimal Florence MD Primary Care Provider [phone] Kiesha Davis Primary Care Provider [phone] Annette Adams JUNK DEALER Unavailable [phone] Vimal Florence MD Primary Care Provider [phone] Kiesha Davis Primary Care Provider [phone] Vimal Florence MD Primary Care Provider [phone] Kae Cabral RN Unavailable [phone] Jhon Barrera JUNK DEALER Unavailable [phone] Encounter Details Date Type Department Care Team (Late st Contact Info) Description 09/30/2017 Orders Only [facility] ProviderRaheem MD [facility] [place] [address] Social History Tobacco Use Types Packs/Day Years Used Date Smoking Tobacco: Former Comments Unknown Sex and Gender Information Value Date Recorded Sex Assigned at Not on file Legal Sex Female 7:21 AM COW TESTER Gender Identity Not on file Sexual Orientation Not on file documented as of this encounter Plan of Treatment Not on file documented as of this encounter Procedures Procedure Name Priority Date/Time Associated Diagnosis Comments LOWER EXTREMITY VENOUS DOPPLER 09/30/2017 12:00 AM COW TESTER documented in this encounter Results * LOWER EXTREMITY VENOUS DOPPLER (09/30/2017 12:00 AM COW TESTER) Anatomical Region Laterality Modality N/A Ultrasound Narrative 09/30/2017 12:00 AM COW TESTER Ordered by an unspecified provider. us Historical Provider MD WARNER US PROCEDURES Final R esult documented in this encounter Visit Diagnoses Not on filedocumented in this encounter Care Teams Instructor Trainer Canine Service Relationship Specialty Start Date End Date iVmal Florence MD PCP - General Family Medicine 12/29/18 06/07/19 Joey Blake MD PCP - General 06/08/19 12/02/19 Vimal Florence MD PCP - General Family Medicine 12/03/19 02/04/20 Kiesha Davis PA [address] [place] [address] PCP - General Internal Medicine 02/05/20 03/11/20 Vimal Florence MD PCP - General 03/12/20 03/18/20 Kiesha Davis PA [address] [place] [address] PCP - General Internal Medicine 03/19/20 02/12/21 Vimal Florence MD PCP - General Family Medicine 02/13/21 02/14/21 Annette Adams, JUNK DEALER [address] [place] [address] [address] [place] [address] Machine Operator Picker 02/05/20 02/25/20 Kae Cabral, RN [address] [place] [address] [address] [place] [address] Photography Assistant 03/12/24 04/11/24 Jhon Barrera LCSW [address] [place] [address] [address] [place] [address] Machine Operator Picker 03/13/24 05/02/24 documented as of this encounter
--- OUTSIDE RECORDS SUMMARY | 2024-10-30 17:09 | XMS_ITS | Clinical Summary ---
Author Organization [facility] Address [address] [place] [address] Care Team Providers Care Associate Chief Nurse Name Role Phone Unavailable Primary Care Provider Unavailabl e Allergies No known active allergies Medications pyridoxine (VITAMIN B-6) 100 mg tablet Take 1 tablet (100 mg total) by mouth daily Active calcium carbonate (CALCIUM 600 ORAL) daily. Active calcium citrate-vitamin D3 (CITRACAL+D) 315-200 mg-unit per tablet Take by mouth. 7 Active cholecalciferol (VITAMIN D-3) 1,000 unit tablet 1 tablet (1,000 Units total) daily Active aspirin 81 mg enteric coated tablet Take 1 tablet (81 mg total) by mouth daily Active hydrocortisone 2.5 % cream Apply topically 2 (two) times a day as needed for irritation or rash 20 g 2 Active Additional Information Patient not taking.Reported on 03/07/2024 alendronate (FOSAMAX) 70 mg tablet TAKE 1 TABLET (70 MG TOTAL) BY MOUTH EVERY 7 DAYS TAKE IN THE MORNING WITH A FULL GLASS OF WATER, ON AN EMPTY STOMACH, AND DO NOT TAKE ANYTHING ELSE BY MOUTH OR LIE DOWN FOR THE NEXT 30 MIN. 12 tablet 4 Active atorvastatin (LIPITOR) 10 mg tablet Take 1 tablet (10 mg total) by mouth nightly 30 tablet [address] (CYMBALTA) 20 mg capsule Take 1 capsule (20 mg total) by mouth daily 30 capsule 1 4 Active QUEtiapine (SEROquel) 25 mg tablet Take 1 tablet (25 mg total) by mouth nightly 30 tablet 1 4 Active traZODone (DESYREL) 50 mg tablet Take 0.5 tablets (25 mg total) by mouth every 8 (eight) hours as needed for sleep (agitation) 90 tablet 4 Active sulfaSALAzine (AZULFIDINE) 500 mg tablet Take 1 tablet (500 mg total) by mouth 4 (four) times a day Active lidocaine (LIDODERM) 5 % Place 1 patch on the skin daily Remove & discard patch within 12 hours or as directed by MD. Active donepeziL (ARICEPT) 10 mg tablet Take 1 tablet (10 mg total) by mouth nightly 90 tablet 1 4 Active Active Problems Problem Noted Date Diagnosed Date Frailty 02/01/2024 Assessment & Plan (02/01/2024 7:01 AM CDT): Patient has progressive chronic disease that is leading to frailty. Will continue to monitor closely and work with social work to promote safe living situation to decrease risks fall and injury. Hallucinations 01/06/2024 Assessment & Plan (02/01/2024 7:47 AM CDT): A full workup was done to determine any underlying secondary causes for the dementia. Infection was ruled out. Imaging of the head was determined to be negative. Psychiatry as well as neurology evaluated her and was determined to have severe dementia with agitation. The psychiatrist started her on trazodone 25, Seroquel 25 mg at bedtime. Duloxetine 20 mg daily and Aricept 5 mg daily. She has packaging of these medications from the SNF but I am unsure if she is taking them correctly. Her daughter would not provide information as to whether she was helping her with her medications SLUMS evaluation was consistent with severe dementia today. Multiple times during the discussion, I raised my concern for the patients safety. She is living by herself. The questions that are in the HPI show that her insight is limited to her disease and that she is making poor choices regarding safety (such as feeding schools at her window as well as utilizing a bus in the city to try to transport on her own. ) I do not feel as though she has capacity to make her own decisions safely. Patient self reports with the Medicare Health Risk Assessment Questions that she requires help with ALL her ADLs. I also am unsure how involve the daughter is with helping her remain safe in her home. Stressed she needs 24/7 care. I will send out PT and OT for evaluation. Will also request nursing social work evaluation to assist in medications as well as evaluation of living situation and safety. Instructed patient and her daughter to return in 1 week to follow-up on how things have gone with the assistance in the home over the week as I am very concerned about her safety in the home. Parkinsonism 01/06/2024 Moderate protein-calorie malnutrition 01/06/2024 Confusion and disorientation 01/06/2024 Severe dementia, unspecified dementia type, unspecified whether behavioral, psychotic, or mood disturbance or anxiety 01/05/2024 Assessment & Plan (02/01/2024 7:48 AM CDT): A full workup was done to determine any underlying secondary causes for the dementia. Infection was ruled out. Imaging of the head was determined to be negative. Psychiatry as well as neurology evaluated her and was determined to have severe dementia with agitation. The psychiatrist started her on trazodone 25, Seroquel 25 mg at bedtime. Duloxetine 20 mg daily and Aricept 5 mg daily. She has packaging of these medications from the SNF but I am unsure if she is taking them correctly. Her daughter would not provide information as to whether she was helping her with her medications SLUMS evaluation was consistent with severe dementia today. Multiple times during the discussion, I raised my concern for the patients safety. She is living by herself. The questions that are in the HPI show that her insight is limited to her disease and that she is making poor choices regarding safety (such as feeding schools at her window as well as utilizing a bus in the city to try to transport on her own. ) I do not feel as though she has capacity to make her own decisions safely. Patient self reports with the Medicare Health Risk Assessment Questions that she requires help with ALL her ADLs. I also am unsure how involve the daughter is with helping her remain safe in her home. Stressed she needs 24/7 care. I will send out PT and OT for evaluation. Will also request nursing social work evaluation to assist in medications as well as evaluation of living situation and safety. Instructed patient and her daughter to return in 1 week to follow-up on how things have gone with the assistance in the home over the week as I am very concerned about her safety in the home. BMI 25.0-25.9,adult 05/18/2023 Assessment & Plan (02/01/2024 7:01 AM CDT): Weight/BMI is in healthy range. Continue healthy lifestyle to maintain. Assessment & Plan (05/18/2023 11:20 AM CDT): Weight/BMI is in healthy range. Continue healthy lifestyle to maintain. Medicare annual wellness visit, subsequent 04/30 Assessment & Plan (02/01/2024 7:08 AM CDT): Encouraged healthy lifestyle, good nutrition and exercise. Encouraged Calcium and Vitamin D and weight bearing exercise for bone health. Reviewed immunizations. Reviewed age appropirate screenings. Medicare Wellness Documentation is completed within the chart Assessment & Plan (04/30/2023 2:08 PM CDT): Encouraged healthy lifestyle, good nutrition and exercise. Encouraged Calcium and Vitamin D and weight bearing exercise for bone health. Reviewed immunizations. Reviewed age appropirate screenings. Medicare Wellness Documentation is completed within the chart Neuropathy 12/26/2022 Assessment & Plan (02/01/2024 7:00 AM CDT): History of neuropathy. She has been on medication in the past but again stopped these medications apparently when she ran out. She was not discharged with him in the hospital and today she is actively complaining of symptoms so will continue to monitor Assessment & Plan (04/30/2023 2:07 PM CDT): Patient is using gabapentin 100 b.i.d. for her neuropathy. She thinks it is helping. Refills available at pharmacy Assessment & Plan (12/26/2022 5:04 PM CDT): Symptoms are better controlled with the gabapentin. Refills sent to pharmacy Vitamin D deficiency 10/13/2022 Assessment & Plan (02/01/2024 7:08 AM CDT): Patient would benefit from supplementation but am not going to represcribe until I know she has a assistance with taking her medications Assessment & Plan (04/30/2023 2:07 PM CDT): Supplement Assessment & Plan (12/26/2022 5:02 PM CDT): Supplement Assessment & Plan (10/13/2022 11:08 PM CDT): Supplement Hyperglycemia 08/27/2021 Assessment & Plan (10/13/2022 11:07 PM CDT): Pre-diabetes/hyperglycemia is a precursor to Dm. Stressed importance of working on diet (decrease your simple sugars and one carbohydrate with each meal) and increase you exercise to achieve weight loss and this will help prevent you from progressing to diabetes. Assessment & Plan (02/15/2022 10:35 AM CDT): Pre-diabetes/hyperglycemia is a precursor to Dm. Stressed importance of working on diet (decrease your simple sugars and one carbohydrate with each meal) and increase you exercise to achieve weight loss and this will help prevent you from progressing to diabetes. Assessment & Plan (08/27/2021 8:40 PM SECOND RIDE FARE COLLECTOR): Pre-diabetes/hyperglycemia is a precursor to Dm. Stressed importance of working on diet (decrease your simple sugars and one carbohydrate with each meal) and increase you exercise to achieve weight loss and this will help prevent you from progressing to diabetes. Osteopenia of multiple sites 08/27/2021 Assessment & Plan (02/01/2024 6:59 AM CDT): Last DEXA was in August of 2023. Still consistent with osteopenia. Has been on Fosamax in the past but patient has discontinued it apparently on her own as it has not been filled recently. Due to frailty and dementia I am not going to restart medication. I am concerned that she does have assistance with medication in the product will not be taking correctly. If she is in a living situation with medication assistance then she would benefit from restarting bisphosphonate. She would also benefit from vitamin-D and calcium Assessment & Plan (05/29/2023 9:54 PM SECOND RIDE FARE COLLECTOR): Continue Fosamax. She states she has supply at home. Continue with calcium vitamin-D and exercise. I have ordered her mammogram and DEXA in March so will await results. Assessment & Plan (04/30/2023 2:06 PM CDT): Continue Fosamax 70 mg and calcium vitamin-D and exercise. She is due for her repeat DEXA Assessment & Plan (12/26/2022 5:02 PM CDT): Due for DEXA. Continue Fosamax 70 mg weekly along with calcium and vitamin-D supplementation Assessment & Plan (10/13/2022 11:07 PM CDT): Patient with history of osteoporosis. Next DEXA is due this year. Order provided continue Fosamax. Continue calcium vitamin-D and exercise Assessment & Plan (05/12/2022 11:15 AM CDT): Continue Fosamax, Calcium and Vitamin D. Monitor DXA Assessment & Plan (02/15/2022 10:35 AM CDT): Continue with Fosamax. She is past due for a DEXA. Continue calcium vitamin-D and exercise Assessment & Plan (08/27/2021 8:47 PM SECOND RIDE FARE COLLECTOR): Continue Fosamax calcium vitamin-D and exercise. Due for DEXA. Has order an strongly encouraged her to get it as soon as possible. History of tobacco use 02/18/2021 Overview (02/18/2021): Quit 2005 Menopause 02/15/2021 Assessment & Plan (04/30/2023 2:07 PM CDT): Check DEXA Assessment & Plan (12/26/2022 5:01 PM CDT): Check DEXA Assessment & Plan (02/15/2021 10:25 AM CDT): Check DXA Generalized weakness 02/15/2021 Assessment & Plan (02/01/2024 7:47 AM CDT): Patient with significant weakness. She was barely able to rise from the chair and definitely unable to take steps on her own safely. Physical therapy evaluations from the hospital due support the same evaluation. She was sent to rehab but unable to follow instructions and therefore determined that it would not be of benefit. Was encouraged to long-term care situation to assist with ADLs and safety. Her family has brought her home with instructions to provide 24/7 care due to weakness as well as her severe dementia. A full workup was done to determine any underlying secondary causes for the dementia. Infection was ruled out. Imaging of the head was determined to be negative. Psychiatry as well as neurology evaluated her and was determined to have severe dementia with agitation. The psychiatrist started her on trazodone 25, Seroquel 25 mg at bedtime. Duloxetine 20 mg daily and Aricept 5 mg daily. She has packaging of these medications from the SNF but I am unsure if she is taking them correctly. Her daughter would not provide information as to whether she was helping her with her medications SLUMS evaluation was consistent with severe dementia today. Multiple times during the discussion, I raised my concern for the patients safety. She is living by herself. The questions that are in the HPI show that her insight is limited to her disease and that she is making poor choices regarding safety (such as feeding schools at her window as well as utilizing a bus in the city to try to transport on her own. ) I do not feel as though she has capacity to make her own decisions safely. Patient self reports with the Medicare Health Risk Assessment Questions that she requires help with ALL her ADLs. I also am unsure how involve the daughter is with helping her remain safe in her home. Stressed she needs 24/7 care. I will send out PT and OT for evaluation. Will also request nursing social work evaluation to assist in medications as well as evaluation of living situation and safety. Instructed patient and her daughter to return in 1 week to follow-up on how things have gone with the assistance in the home over the week as I am very concerned about her safety in the home. Assessment & Plan (10/13/2022 11:07 PM CDT): Patient with generalized weakness. She is still uses a wheelchair. Offered physical therapy for strengthening but she declines at this time Assessment & Plan (02/15/2022 10:34 AM CDT): Patient still complains of generalized weakness. Offered physical therapy which she declined. She wants to consider Silver sneakers and getting an at home and a workout centers. Strongly encouraged her to do this. Encouraged walking around the house as she is able. Assessment & Plan (02/15/2021 10:26 AM CDT): Start PT Slow transit constipation 02/15/2021 Assessment & Plan (04/30/2023 2:06 PM CDT): Encouraged increased water exercise and fiber in her diet. She can add a stool softener. If she does not have a bowel movement for 2 or 3 days she should add the MiraLax. Tried Linzess but it was too expensive for her to use Assessment & Plan (12/26/2022 5:01 PM CDT): Continue constipation care including stool softener daily and MiraLax p.r.n.. Encouraged activity as able Assessment & Plan (08/27/2021 8:39 PM SECOND RIDE FARE COLLECTOR): Continue fiber exercise and water. States she never used the Linzess due to cost. Occasionally using MiraLax on a daily stool softener. Assessment & Plan (04/17/2021 6:20 PM CDT): Increase fiber, exercise, water. Add stool softner.bid Advised that laxatives are not the best choice for treatment/control. Reviewed with patient that the lizness and amitiza are tier 3 --- she may want to check with her pharmacy on cost --- Encouraged increased activity. Assessment & Plan (02/15/2021 10:28 AM CDT): This is a significant, separately identifiable problem that was evaluated and managed on the same day as the wellness exam Persistent sxs. She had tried stool softners, laxatives and miralax. Start LInzess. Reviewed risks, benefit, alternatives, side effects and proper use. Followup 2-3 months to reassess Still push fluids. Fiber and exercise. Breast cancer screening by mammogram 02/12/2020 Assessment & Plan (04/30/2023 2:07 PM CDT): Mammogram order provided Assessment & Plan (02/15/2021 10:25 AM CDT): Mammogram order provided Assessment & Plan (08/31/2020 6:05 PM SECOND RIDE FARE COLLECTOR): Mammogram order provided Assessment & Plan (02/12/2020 9:43 PM CDT): Mammogram order provided Rheumatoid arthritis 11/11/2017 Assessment & Plan (02/01/2024 7:01 AM CDT): History of psoriatic arthritis rheumatoid arthritis. Patient has been following with data coder operator but has not seen 1 in a few years as patient would not keep appointments. I would be glad to make the referral back to specialist. She would need assistance with transportation. At this point she was not actively complaining of symptoms so will continue to monitor Assessment & Plan (05/29/2023 9:52 PM SECOND RIDE FARE COLLECTOR): I have made referrals multiple times to the data coder operator. Patient does not seem to be able to make it to the data coder operator on her own. Memory is probably the cause. I will reach out to the daughter myself to see if we can get some assistance in her care. Assessment & Plan (04/30/2023 2:09 PM CDT): Patient has not seen a data coder operator in quite a few years. I have made referrals for the patient multiple times and when the provider calls to set the appointment she declines. Advised to would be calling so that she can accept the appointment so we can have her rheumatoid arthritis and psoriatic arthritis history addressed. Assessment & Plan (12/26/2022 5:01 PM CDT): Patient has psoriatic arthritis and rheumatoid arthritis by history. She no longer feels as though she can get [place] for her care at [facility]. Encouraged follow-up in [place] with [facility]. Referral has been made. She has the contact information to reach back out to them so she can reestablish and determine appropriate treatment for her symptoms. Assessment & Plan (10/13/2022 11:07 PM CDT): Patient has history of psoriatic arthritis and rheumatoid arthritis. Had been following with data coder operator in [place] but it is very difficult for her to get to those visits now. She would like to see a data coder operator closer to home. She prefers [facility]. Will make the referral to [facility] data coder operator and await recommendations. Assessment & Plan (05/12/2022 11:07 AM CDT): Continue per Rheumatology. Assessment & Plan (02/15/2022 10:34 AM CDT): Continue per Rheumatology Dr. Evans. She is having trouble getting all her medications as she needs an eye exam to continue with the Plaquenil. Will try to work with social media developer to help make all of this happen so that she can get the care she needs. Also needs assistance with transportation to keep these appointments. Assessment & Plan (08/27/2021 8:45 PM SECOND RIDE FARE COLLECTOR): Continue per Rheumatology Assessment & Plan (02/15/2021 10:26 AM CDT): Continue per Rheum Assessment & Plan (08/31/2020 6:05 PM SECOND RIDE FARE COLLECTOR): Per Rheumatology Assessment & Plan (03/22/2020 12:56 PM CDT): Continue per Rheu Other spondylosis with radiculopathy, cervical r egion 04/25/2017 Pancreatic mass 01/28/2017 Overview (02/12/2020): 05/2019 IMPRESSION: 1. The 2.1 cm mass in the tail the pancreas is unchanged in size and appearance since February 2019 and is isoattenuating to pancreatic parenchyma on all phases, suggestive of an intrapancreatic splenule. No further followup is needed Assessment & Plan (03/22/2020 12:54 PM CDT): Dr. Blake rechecked labs and still stable. Peripheral nerve disease 12/10/2016 Ataxic gait 12/07/2016 Assessment & Plan (02/15/2021 10:26 AM CDT): Start PT to decrease fall risk/ Osteoarthritis of cervical spine with myelopathy 12/07/2016 Assessment & Plan (08/31/2020 6:03 PM SECOND RIDE FARE COLLECTOR): Continue per spine surgeon prn Assessment & Plan (02/12/2020 9:32 PM CDT): S/p surgical repair. Continue per Ortho Spine. Wear c-collar as instructed. Avoid pillow as instructed. Keep f.u in approx 6 weeks as instructed. Hypertension 12/07/2016 Assessment & Plan (02/01/2024 6:58 AM CDT): Currently stable without medication Assessment & Plan (05/29/2023 9:52 PM SECOND RIDE FARE COLLECTOR): Bp is stable/in acceptable range for any co-morbidities. Encouraged to limit sodium intake and exercise for weight control. Patient is currently taking hydrochlorothiazide. Her blood pressure stable so will continue with it at this point Assessment & Plan (12/26/2022 4:59 PM CDT): Currently managing without medication. Continue to monitor closely Assessment & Plan (10/13/2022 11:06 PM CDT): Bp is stable/in acceptable range for any co-morbidities. Encouraged to limit sodium intake and exercise for weight control. Currently stable without medication Assessment & Plan (08/27/2021 8:38 PM SECOND RIDE FARE COLLECTOR): Bp is stable/in acceptable range for any co-morbidities. Encouraged to limit sodium intake and exercise for weight control. Currently stable without medication Assessment & Plan (02/15/2021 10:25 AM CDT): Bp is stable/in acceptable range for any co-morbidities. Encouraged to limit sodium intake and exercise for weight control. Currently controlled without medication Assessment & Plan (08/31/2020 6:04 PM SECOND RIDE FARE COLLECTOR): Bp is stable/in acceptable range for any co-morbidities. Encouraged to limit sodium intake and exercise for weight control. Currently stable without medication. Assessment & Plan (03/22/2020 12:54 PM CDT): Bp is stable/in acceptable range for any co-morbidities. Encouraged to limit sodium intake and exercise for weight control. Assessment & Plan (02/12/2020 9:33 PM CDT): Bp is stable/in acceptable range for any co-morbidities. Encouraged to limit sodium intake and exercise for weight control. Stable with fosinopril Assessment & Plan (12/03/2019 4:08 PM CDT): Stable Cont lisinopril High risk medication use 09/16/2016 Assessment & Plan (08/27/2021 8:38 PM SECOND RIDE FARE COLLECTOR): Patient is on Plaquenil. Her data coder operator is willing medicine until she gets her eye exam done. Strongly encouraged her to follow through with this. Psoriatic arthritis 09/16/2016 Assessment & Plan (02/01/2024 7:01 AM CDT): History of psoriatic arthritis rheumatoid arthritis. Patient has been following with data coder operator but has not seen 1 in a few years as patient would not keep appointments. I would be glad to make the referral back to specialist. She would need assistance with transportation. At this point she was not actively complaining of symptoms so will continue to monitor Assessment & Plan (05/29/2023 9:52 PM SECOND RIDE FARE COLLECTOR): I have made referrals multiple times to the data coder operator. Patient does not seem to be able to make it to the data coder operator on her own. Memory is probably the cause. I will reach out to the daughter myself to see if we can get some assistance in her care. Assessment & Plan (04/30/2023 2:09 PM CDT): Patient has not seen a data coder operator in quite a few years. I have made referrals for the patient multiple times and when the provider calls to set the appointment she declines. Advised to would be calling so that she can accept the appointment so we can have her rheumatoid arthritis and psoriatic arthritis history addressed. Assessment & Plan (12/26/2022 5:00 PM CDT): Patient has psoriatic arthritis and rheumatoid arthritis by history. She no longer feels as though she can get [place] for her care at [facility]. Encouraged follow-up in [place] with [facility]. Referral has been made. She has the contact information to reach back out to them so she can reestablish and determine appropriate treatment for her symptoms. Assessment & Plan (10/13/2022 11:07 PM CDT): Patient has history of psoriatic arthritis and rheumatoid arthritis. Had been following with data coder operator in [place] but it is very difficult for her to get to those visits now. She would like to see a data coder operator closer to home. She prefers [place] area. Will make the referral to [facility] data coder operator and await recommendations. Assessment & Plan (02/15/2022 10:34 AM CDT): Continue per Rheumatology Dr. Evans. She is having trouble getting all her medications as she needs an eye exam to continue with the Plaquenil. Will try to work with social media developer to help make all of this happen so that she can get the care she needs. Also needs assistance with transportation to keep these appointments. Assessment & Plan (08/27/2021 8:38 PM SECOND RIDE FARE COLLECTOR): Continue per Rheumatology. Assessment & Plan (02/15/2021 10:25 AM CDT): Continue per Rheum Assessment & Plan (08/31/2020 6:05 PM SECOND RIDE FARE COLLECTOR): Per Rheumatology Assessment & Plan (03/22/2020 12:56 PM CDT): Continue per Rheum Assessment & Plan (02/12/2020 9:43 PM CDT): Per Gang Drill Operator Muscle weakness (generalized) 06/15/2016 Assessment & Plan (12/26/2022 5:00 PM CDT): Generalized weakness. She utilizes wheelchair when needed. Encouraged physical therapy which she declines at this time. Assessment & Plan (04/17/2021 6:19 PM CDT): Improving -- Continue with therapy as she is getting stronger. Will extend therapy if needed. Assessment & Plan (02/15/2021 10:25 AM CDT): Persistent sxs. Recommend PT. oRder provided. Assessment & Plan (08/31/2020 6:05 PM SECOND RIDE FARE COLLECTOR): Encouraged activity as tolerated. Discussed PT and she declines at this time. Assessment & Plan (03/22/2020 12:58 PM CDT): This is a significant, separately identifiable problem that was evaluated and managed on the same day as the wellness exam Continue PT. My staff will contact on Tuesday to determine when the wheelchair evaluation can be completed. Will reviewe PT report to determine if would benefit from more as patient still states she is not able to walk Assessment & Plan (02/12/2020 9:42 PM CDT): Appears by history to have continued LE weakness. High risk for falls. Unsure of safety in house by herself as sounds like she is not transferring with ease from bed to chair or from commode to chair. Will order HOMEPT/evaluation and will try to get a SW into the home to help determine safety. Discussed with daughter and patient my biggest concern for her is safety in the home and that has to be determined. Assessment & Plan (12/03/2019 4:07 PM CDT): Order home health D;/w daughter that if becomes too risky, take her to the ER Daughter agrees Resolved Problems Problem Noted Date Diagnosed Date Resolved Date Vascular dementia 01/07/2024 02/01/2024 Assessment & Plan (02/01/2024 7:48 AM CDT): A full workup was done to determine any underlying secondary causes for the dementia. Infection was ruled out. Imaging of the head was determined to be negative. Psychiatry as well as neurology evaluated her and was determined to have severe dementia with agitation. The psychiatrist started her on trazodone 25, Seroquel 25 mg at bedtime. Duloxetine 20 mg daily and Aricept 5 mg daily. She has packaging of these medications from the SNF but I am unsure if she is taking them correctly. Her daughter would not provide information as to whether she was helping her with her medications SLUMS evaluation was consistent with severe dementia today. Multiple times during the discussion, I raised my concern for the patients safety. She is living by herself. The questions that are in the HPI show that her insight is limited to her disease and that she is making poor choices regarding safety (such as feeding schools at her window as well as utilizing a bus in the city to try to transport on her own. ) I do not feel as though she has capacity to make her own decisions safely. Patient self reports with the Medicare Health Risk Assessment Questions that she requires help with ALL her ADLs. I also am unsure how involve the daughter is with helping her remain safe in her home. Stressed she needs / care. I will send out PT and OT for evaluation. Will also request nursing social work evaluation to assist in medications as well as evaluation of living situation and safety. Instructed patient and her daughter to return in 1 week to follow-up on how things have gone with the assistance in the home over the week as I am very concerned about her safety in the home. Memory deficit 05/29/2023 02/01/2024 Assessment & Plan (05/29/2023 9:53 PM SECOND RIDE FARE COLLECTOR): Patient is showing significant memory changes. She would does not recall conversations with my staff. She does not really recall the last visit I had with her. Slums score was 11 which is significant for memory impairment. I will reach out to the daughter to discuss safety measures as well as the need for assistance in in her care. Need for influenza vaccination 04/30/2023 02/01/2024 Assessment & Plan (04/30/2023 2:08 PM CDT): Flu vaccine updated in the office today Pain of right hip 04/30/2023 02/01/2024 Assessment & Plan (04/30/2023 2:13 PM CDT): This is a significant, separately identifiable problem that was evaluated and managed on the same day as the wellness exam Patient fell about a month ago and landed on her left hip. She has had persistent pain in the left hip as well as low back. She did not follow-up for any evaluation. Will start with x-rays of the hip and the lumbar spine. May use anti- inflammatory as tolerated or Tylenol. Lidocaine patches to the area may also help. Pending the results may consider physical therapy. Lumbar back pain 04/30/2023 02/01/2024 Assessment & Plan (04/30/2023 2:14 PM CDT): This is a significant, separately identifiable problem that was evaluated and managed on the same day as the wellness exam Patient fell about a month ago and landed on her left hip. She has had persistent pain in the left hip as well as low back. She did not follow-up for any evaluation. Will start with x-rays of the hip and the lumbar spine. May use anti- inflammatory as tolerated or Tylenol. Lidocaine patches to the area may also help. Pending the results may consider physical therapy. BMI 25.0-25.9,adult 04/20/2023 05/18/20 23 Assessment & Plan (04/20/2023 1:39 PM CDT): Weight/BMI is in healthy range. Continue healthy lifestyle to maintain. BMI 25.0-25.9,adult 12/22/2022 04/20/20 23 Assessment & Plan (12/22/2022 10:50 AM CDT): Weight/BMI is in healthy range. Continue healthy lifestyle to maintain. BMI 25.0-25.9,adult 10/13/2022 12/23/19 Assessment & Plan (10/13/2022 1:54 PM CDT): Weight/BMI is in healthy range. Continue healthy lifestyle to maintain. Annual physical exam 10/13/2022 023 Assessment & Plan (10/13/2022 11:08 PM CDT): Encouraged healthy lifestyle, good nutrition and exercise. Encouraged Calcium and Vitamin D and weight bearing exercise for bone health. Reviewed immunizations Reviewed age appropirate screenings. Encounter for immunization 05/12/2022 0 12/26/2022 Assessment & Plan (05/12/2022 11:15 AM CDT): Flu updated in the office today Fatigue 02/15/2022 12/26/2022 Assessment & Plan (10/13/2022 11:08 PM CDT): Probably multifactorial. Check labs and followup to re-evaluate Assessment & Plan (02/15/2022 10:36 AM CDT): Probably multifactorial. 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 Medicare annual wellness visit, subsequent 02/13/2022 05/12/2022 Assessment & Plan (02/15/2022 10:36 AM CDT): Encouraged healthy lifestyle, good nutrition and exercise. Encouraged Calcium and Vitamin D and weight bearing exercise for bone health. Reviewed immunizations. Reviewed age appropirate screenings. Medicare Wellness Documentation is completed within the chart Annual physical exam 08/27/2021 022 Assessment & Plan (08/27/2021 8:39 PM SECOND RIDE FARE COLLECTOR): Encouraged healthy lifestyle, good nutrition and exercise. Encouraged Calcium and Vitamin D and weight bearing exercise for bone health. Reviewed immunizations Reviewed age appropirate screenings. Encouraged her screenings. Reviewed with her that essence can help with the rights that she can call the number on the back of the card. Fatigue 08/27/2021 02/13/2022 Assessment & Plan (08/27/2021 8:40 PM SECOND RIDE FARE COLLECTOR): Probably multifactorial. Check labs and followup to re-evaluate BMI 27.0-27.9,adult 08/25/2021 10/14/19 23 Assessment & Plan (05/12/2022 11:14 AM CDT): Weight/BMI is in healthy range. Continue healthy lifestyle to maintain. Assessment & Plan (02/15/2022 10:35 AM CDT): Weight/BMI is in healthy range. Continue healthy lifestyle to maintain. Assessment & Plan (08/25/2021 10:50 AM SECOND RIDE FARE COLLECTOR): Weight/BMI is in healthy range. Continue healthy lifestyle to maintain. BMI 24.0-24.9, adult 04/17/2021 022 Assessment & Plan (04/17/2021 10:01 AM CDT): Weight/BMI is in healthy range. Continue healthy lifestyle to maintain. Medicare annual wellness visit, initial 02/09/2021 08/27/2021 Assessment & Plan (02/15/2021 10:26 AM CDT): Encouraged healthy lifestyle, good nutrition and exercise. Encouraged Calcium and Vitamin D and weight bearing exercise for bone health. Reviewed immunizations. Reviewed age appropirate screenings. Medicare Wellness Documentation is completed within the chart BMI 24.0-24.9, adult 02/09/2021 021 Assessment & Plan (02/09/2021 3:17 PM CDT): Weight/BMI is in healthy range. Continue healthy lifestyle to maintain. Colon cancer screening declined 08/31/2020 08/27/2021 Assessment & Plan (02/15/2021 10:24 AM CDT): Reviewed importance of screening. Pt voiced understanding. Assessment & Plan (08/31/2020 6:06 PM SECOND RIDE FARE COLLECTOR): Reviewed importance of screening. Pt voiced understanding. BMI 20.0-20.9, adult 08/11/2020 021 Assessment & Plan (08/11/2020 4:12 PM SECOND RIDE FARE COLLECTOR): Weight/BMI is in healthy range. Continue healthy lifestyle to maintain. Annual physical exam 03/21/2020 021 Assessment & Plan (08/31/2020 6:05 PM SECOND RIDE FARE COLLECTOR): Encouraged healthy lifestyle, good nutrition and exercise. Encouraged Calcium and Vitamin D and weight bearing exercise for bone health. Reviewed immunizations Reviewed age appropirate screenings. Assessment & Plan (03/22/2020 12:56 PM CDT): Encouraged healthy lifestyle, good nutrition and exercise. Encouraged Calcium and Vitamin D and weight bearing exercise for bone health. Reviewed immunizations Reviewed age appropirate screenings. Bilateral impacted cerumen 03/21/2020 0 08/27/2021 Generalized weakness 02/12/2020 020 Urinary incontinence 02/08/2020 022 Assessment & Plan (08/31/2020 6:04 PM SECOND RIDE FARE COLLECTOR): Patient states better since seeing Dr. Caba. Assessment & Plan (03/22/2020 12:57 PM CDT): This is a significant, separately identifiable problem that was evaluated and managed on the same day as the wellness exam My staff was able to contact Dr. Mckinney office. Unsure why she had not been contacted. Dr. Caba not available until late but can be seen in the [facility] office in the next 1-2 weeks. My staff offered both to patient and appt set at [facility] office. Assessment & Plan (02/12/2020 9:33 PM CDT): Difficulty piecing together history/sxs/etiology. It appears an MRI lumbar spine was done at [facility] but it is not available in Care everywhere. Will try to obtain. If not done, needs to be done to rule out neurogenic bladder cause. Will get urine culture. Pt unable to urinate in the office today so will send home with daughter and a hat to collect and return to [facility]. Will also need to refer to Urology for further evaluation of her incontinence. Syncope and collapse 12/29/2018 020 Joint swelling 09/28/2017 03/02/2019 Swelling of left lower extremity 09/28/2017 03/02/2019 Obesity with body mass index 30 or greater 06/27/2017 02/12/2020 Joint stiffness 03/30/2017 03/02/2019 Fall 03/01/2017 02/12/2020 Assessment & Plan (12/03/2019 4:08 PM CDT): Order home health D;/w daughter that if becomes too risky, take her to the ER Daughter agrees Arthropathic psoriasis 02/21/201702/15 Breast density 01/28/2017 10/13/2022 Breast mass seen on mammogram 01/28/2017 10/13/2022 Elevated creatine kinase level 01/19/2017 03/02/2019 Elevated antinuclear antibody (MARILY) level 06/15/2016 03/02/2019 Encounter for consultation 06/15/2016 0 12/29/2018 Arthralgia of multiple joints 06/15/2016 03/02/2019 Immunizations Immunization Administration Dates Next Due Influenza, Quadrivalent, Hig h Dose, Preservative Free, Intrr 04/20/2023,05/12/2022,05/20/2021,05/16,05/15/2020 Influenza, Quadrivalent, Spl it, Preservative Free, Intramuscular 05/20/2016 Influenza, Trivalent, Preser vative Free, Intramuscular 05/22/2015 Influenza, Unspecified 05/16/2020,2018(Deferred: Patient Refused) Pfizer SARS-CoV-2 Monovalent Vaccination (12+ Yrs) PURPLE 06/17/2021 Pneumococcal Conjugate PCV 13 05/20/2016 Pneumococcal Polysaccharide PPV23 09/20/2018 Surgical History Surgery Date Site/Laterality Comments AL ARTHRD ANT INTERBODY MIN DSC CRV BELOW C2 Cervical Vertebral Fusion - C4-C6 (Added by TW Conv) CHOLECYSTECTOMY 07/25/1976 - 07/24/1977 HYSTERECTOMY ANKLE FRACTURE SURGERY 07/25/2009 - 07/24/2010 SPINE SURGERY 07/25/2011 - 07/24/2012 C-Spine NECK SURGERY 12/07/2019 Medical History Medical History Date Comments Neuropathy Carpal tunnel syndrome, bilateral Psoriasis Anxiety Depression History of migraine headaches Hypertension Pneumonia Stiffness in joint Polyarthralgia Peripheral neuropathy Pancreatic mass Muscle weakness (generalized) Left leg swelling Joint swelling High risk medication use Fall Elevated creatine kinase Elevated antinuclear antibody (MARILY) level Cervical spondylosis with myelopathy and radicul opathy Breast mass seen on mammogram Breast density Ataxic gait Rheumatoid arthritis (HCC) Family History Medical History Relation Name Comments Autoimmune disease Child Family hi story of autoimmune disorder - (Added by [employer] Conv) Osteoarthritis Daughter 1 Family histor y of osteoarthritis - (Added by [employer] Conv) Fibromyalgia Daughter 2 Family history of fibromyalgia - (Added by [employer] Conv) Arthritis Daughter 3 Family history of arthritis - (Added by [employer] Conv) Parkinsonism Father Family history of Parkinson's disease - (Added by TW Conv) Breast cancer Mother Family history of malignant neoplasm of breast - (Added by TW Conv) Stroke Sister 1 Family history of cerebrovascular accident (CVA) - (Added by [employer] Conv) Osteoarthritis Sister 2 Family histor y of osteoarthritis - (Added by [employer] Conv) Relation Name Status Comments Child Daughter 1 Daughter 2 Daughter 3 Father Mother Sister 1 Sister 2 Social History Tobacco Use Types Packs/Day Years Used Date Smoking Tobacco: Former Smokeless Tobacco: Never Tobacco Cessation:Counseling Given: Not Answered Comments:quite 2005 Alcohol Use Standard Drinks/Week Comments Not Currently 0 (1 standard drink = 0.6 oz pur e alcohol) [facility] Utilities Answer Date Recorded In the past 12 months has e [employer], gas, oil, or water company threatened to shut off services in your home? No 03/13/2024 Social Connection and Isolat ion Panel [NHANES] Answer Date Recorded In a typical week, how many times do you talk on the phone with family, friends, or neighbors? More than three times a week 03/13/2024 How often do you get togethe r with friends or relatives? More than three times a week 03/13/2024 How often do you attend chur ch or adventist services? Never 03/13/2024 Do you belong to any clubs o r organizations such as lutheran groups, unions, fraternal or athletic groups, or school groups? No 03/13/2024 How often do you attend meet ings of the clubs or organizations you belong to? Never 03/13/2024 Are you , , di vorced, , never , or living with a partner? 03/13/2024 AUDIT-C Answer Date Recorded Q1: How often do you have a drink containing alcohol? Never 05/18/2023 Q2: How many drinks containi ng alcohol do you have on a typical day when you are drinking? Patient does not drink Q3: How often do you have si x or more drinks on one occasion? Never 05/18/2023 Overall Financial Resource Strain (CARDIA) Answe r Date Recorded How hard is it for you to pa y for the very basics like food, housing, medical care, and heating? Not very hard 03/13/2024 PHQ-2 Answer Date Recorded PHQ-2 Total Score 8 01/24/2024 Hunger Vital Sign Answer Date Recorded Within the past 12 months, y ou worried that your food would run out before you got the money to buy more. Never true 03/13/20 Within the past 12 months, t he food you bought just didn't last and you didn't have money to get more. Never true 03/13/2024 PRAPARE - Transportation Answer Date Re corded In the past 12 months, has l ack of transportation kept you from medical appointments or from getting medications? No 02/23 In the past 12 months, has l ack of transportation kept you from meetings, work, or from getting things needed for daily living? No 03/13/2024 PHQ-9 Answer Date Recorded PHQ-9 Total Score 8 01/24/2024 Housing Stability Vital Sign Answer Sal e Recorded In the last 12 months, was t here a time when you were not able to pay the mortgage or rent on time? No 03/13/2024 In the past 12 months, how m any times have you moved where you were living? 1 03/13/2024 At any time in the past 12 m [facility], were you homeless or living in a retirement (including now)? No 03/13/2024 Personal Safety Answer Date Recorded Have you ever been in or are you currently in a harmful physical or emotional relationship or is someone making you feel afraid or unsafe? Denies 01/05/2024 Comments No Sex and Gender Information Value Date Recorded Sex Assigned at Not on file Legal Sex Female 7:21 AM SECOND RIDE FARE COLLECTOR Gender Identity Not on file Sexual Orientation Not on file Obstetrics History Para Term AB IAB SAB Ectopic Multiple Livin g Live Births 2 2 2 Date Outcome GA Total Labor Labor/2nd/3rd Weight Sex Type Anes PTL Hyun A1 A5 Name Clin Term Term Last Filed Vital Signs Vital Sign Reading Time Taken Comments Blood Pressure 100/80 03/07/2024 2:14 PM CDT Pulse 75 01/24/2024 9:32 AM CDT Temperature 36.7 C (98.1 F) 01/24/2024 9:32 AM CDT Respiratory Rate 18 01/12/2024 8:43 AM CDT Oxygen Saturation 96% 01/24/2024 9:32 AM CDT Inhaled Oxygen Concentration - - Weight 74.4 kg (164 lb 0.4 oz) 01/12/2024 6:00 A M CDT Height 170.2 cm (5' 7 ) 03/07/2024 2:14 PM CDT Body Mass Index 25.68 01/06/2024 4:57 AM CDT Plan of Treatment Health Maintenance Due Date Last Done Comments Hepatitis C Screening 1950 DTaP/Tdap/Td Vaccine (1 - Tdap) 11/26/1962 Hepatitis B Screening 11/26/1969 Zoster Vaccine (1 of 2) 11/26/2001 Covid-19 Vaccine (4 - 2023-2 5 season) 2024 06/17/2021, 11/17/2020, 10/27/2020 Influenza Vaccine (#1) 2024 , 05/12/2022, 05/20/2021, Additional history exists Breast Cancer Screening-Mammogram 09/07/2024 09/07/2023, 04/22/2022, 12/09/2018, Additional history exists Depression Screening 01/23/2025 01/24/2024, 01/24/2024, 05/18/2023, Additional history exists Fall Risk Assessment 01/23/2025 01/24/2024, 01/12/2024, 05/18/2023, Additional history exists Well Visit 65+ 01/23/2025 01/24/2024, 03/26, 10/13/2022, Additional history exists Colon Cancer Screening-Colonoscopy 02/26/2025 02/26/2015 Osteoporosis Screening-Bone Density Scan 09/07/2025 09/07/2023, 11/17/2018 Colon Cancer Screening-CT Colonography Discontinued 02/26/2015 Colon Cancer Screening-DNA Stool Discontinued 02/27/20 15 Colon Cancer Screening-FIT Discontinued 02/26/2015 Colon Cancer Screening-Sigmoidoscopy Discontinued 02/26/2015 Pneumococcal vaccine 65+ Completed 09/20/2018, 04/25 Goals Goal Patient Goal Type Associated Problems Recent Progress Patient-Stated? Author AVELINA General Goal - Patient schedules and keeps appointments with all recommended providers [facility]CO Care Management Kae Carrero, RN Note: Problem: Potential for medical complications and readmission if follow-up appointments are not scheduled Interventions: - Ensure all follow-up appointments are scheduled, all prescribed medications have been received. - Address any barriers for keeping scheduled appointment. - Coordinate with patient/caregiver(s) to ensure patient is able to keep scheduled appointment. - Emphasize importance of keeping scheduled appointments. - Identify and discuss questions for next provider visit. - Follow up with patient after scheduled appointment(s) to review any new orders or changes made to medication regimen. ACO SW Goal - Patient can identify and utilize needed community resources ACO Care Management Jhon Dobbins, ESHA Note: Problem: Need for Community Resources Interventions: - Provide patient/family with a list of appropriate resources for their specific need. - Help to coordinate resources. - Follow up to ensure patient/family has connected with the appropriate resources / personnel. Procedures Procedure Name Priority Date/Time Associated Diagnosis Comments SCREENING MAMMOGRAM BILATERAL W OWEN Schedule Routine, Read Routine (OP Routine) 09/07/2023 8:37 AM SECOND RIDE FARE COLLECTOR Breast cancer screening by mammogram DEXA AXIAL SKELETON BONE DENSITY 1 OR MORE SITES Schedule Routine, Read Routine (OP Routine) 09/07/2023 8:37 AM SECOND RIDE FARE COLLECTOR Menopause HM COLONOSCOPY Routine 02/26/2015 from Last 3 Months or Most Recently Relevant to Health Maintenance Results * Screening Mammogram Bilateral W Owen (09/07/2023 8:37 AM SECOND RIDE FARE COLLECTOR) Anatomical Region Laterality Modality Breast Bilateral Mammography Impressions 09/07/2023 8:49 AM SECOND RIDE FARE COLLECTOR BI-RADS ATLAS category (overall): 1 - Negative There is no mammographic evidence of malignancy. A 1 year screening mammogram is recommended. The patient has been or will be contacted. We recommend annual screening mammography for women at average risk of breast cancer beginning at age 40, based on guidelines of the [employer] (ACR Practice Parameter for the Performance of Screening and Diagnostic Mammography) and [employer]. For women with and elevated risk of breast cancer, please refer to the ACR Practice Parameter for specific screening recommendations. The patient will be entered into a reminder system with a target due date of 1 year for her next screening exam. Narrative 09/07/2023 8:49 AM SECOND RIDE FARE COLLECTOR Screening Mammogram Bilateral W Owen: 09/07/23 The study was acquired using full field digital technology and interpreted from soft copy. 2D digital mammographic views, as well as 3D digital tomosynthesis were performed in the CC and MLO projections. CLINICAL: Breast cancer screening by mammogram. No relevant medical history has been documented for this patient. History of breast cancer in Mother. COMPARISONS: 04/22/2022 Screening Mammogram Bilateral W Owen 12/09/2018 Screening Mammogram Bilateral W Owen 04/06/2017 Stereotactic Breast Biopsy 02/11/2017 Breast Imaging Diagnostic Outside Reference 02/11/2017 Breast Imaging US Outside Reference BREAST TISSUE: The breasts have scattered areas of fibroglandular density. FINDINGS: A biopsy marker clip is unchanged in the right breast. There is no new suspicious finding in either breast on mammogram. us Kiesha [facility] IMG MAMMO PROCEDURES Final Result * Dexa Axial Skeleton Bone Density 1 or 2 Site (09/07/2023 8:37 AM SECOND RIDE FARE COLLECTOR) Anatomical Region Laterality Modality Body N/A Mammography 09/07/2023 9:20 AM SECOND RIDE FARE COLLECTOR Narrative 09/07/2023 9:22 AM SECOND RIDE FARE COLLECTOR EXAM DESCRIPTION: DEXA AXIAL SKELETON BONE DENSITY 1 OR MORE SITES REASON FOR STUDY: 72 y/o year old F with given history of: Postmenopausal status. History of prior fracture and rheumatoid arthritis. Patient has taken/is taking Fosamax, vitamin-D and calcium. Customer Agent/Model: Beeminder A (S/N [id number]) CLINICAL INFORMATION: Current height: 67 inches Maximum height: 67 inches Weight: 163.2 pounds Risk factors: Prior fracture and rheumatoid arthritis COMPARISON: 11/17/2018 FINDINGS: AP LUMBAR SPINE L1-L4: Total BMD is 0.973 g/cm2 T-score is -0.7 This is a 0.4% decrease in comparison to prior exam which is not statistically significant. LEFT HIP: Total BMD is 0.667 g/cm2 T-score is -2.3 This is a 17.2% decrease in comparison to prior exam which is statistically significant. Femoral neck BMD is 0.569 g/cm2 T-score is -2.5 FRAX: FRAX not reported due to T-scores of hip, femoral neck and/or spine being at or below -2.5 (Osteoporosis). IMPRESSION: Osteoporosis. REFERENCE: Bone mineral density: Normal (T-score above or = -1.0) Low bone mass (T-score between -1.0 and -2.5) replaces the previously used term osteopenia Osteoporosis (T-score = or below -2.5) Please see below follow up recommendations. Medical evaluation for secondary causes of low bone mineral density may be appropriate. FRAX is a World Health Organization validated fracture risk assessment tool that calculates a person's 10 year probability of a major osteoporosis related fracture and hip fracture. According to the National Osteoporosis Foundation guidelines, postmenopausal women and men age 50 or older with low bone mass and a 10 year probability of a major osteoporosis related fracture = or greater than 20% or a 10 year probability of a hip fracture = or greater than 3% should be considered for pharmacological treatment for the prevention of osteoporosis. For further information, including treatment recommendations, please refer to the 2019 ISCD Official Positions (http://www.iscd.org) and the NOF's Clinician's Guide to Prevention and Treatment of Osteoporosis (http://www.nof.org/professionals/clinical-guidelines) THIS IS AN ELECTRONICALLY VERIFIED FINAL REPORT 09/07/2023 9:22 AM - Electronically signed by Pamela Cuenca M.D. TW: TW Report ID: [id number] Reading Location: [id number] Procedure Note Pamela Cuenca MD - 09/07/2023 EXAM DESCRIPTION: DEXA AXIAL SKELETON BONE DENSITY 1 OR MORE SITES REASON FOR STUDY: 72 y/o year old F with given history of:Postmenopausal status. History of prior fracture and rheumatoid arthritis. Patient has taken/is taking Fosamax, vitamin-D and calcium. Customer Agent/Model: Beeminder A (S/N [id number]) CLINICAL INFORMATION: Current height: 67 inches Maximum height: 67 inches Weight: 163.2 pounds Risk factors: Prior fracture and rheumatoid arthritis COMPARISON: 11/17/2018 FINDINGS: AP LUMBAR SPINE L1-L4: Total BMD is 0.973 g/cm2 T-score is -0.7 This is a 0.4% decrease in comparison to prior exam which is notstatistically significant. LEFT HIP: Total BMD is 0.667 g/cm2 T-score is -2.3 This is a 17.2% decrease in comparison to prior exam which isstatistically significant. Femoral neck BMD is 0.569 g/cm2 T-score is -2.5 FRAX: FRAX not reported due to T-scores of hip, femoral neck and/or spine beingat or below -2.5 (Osteoporosis). IMPRESSION: Osteoporosis. REFERENCE: Bone mineral density: Normal (T-score above or = -1.0) Low bone mass (T-score between -1.0 and -2.5) replaces thepreviously used term osteopenia Osteoporosis (T-score = or below -2.5) Please see below follow up recommendations. Medical evaluation forsecondary causes of low bone mineral density may be appropriate. FRAX is a World Health Organization validated fracture risk assessmenttool that calculates a person's 10 year probability of a major osteoporosisrelated fracture and hip fracture. According to the National OsteoporosisFoundation guidelines, postmenopausal women and men age 50 or older with low bonemass and a 10 year probability of a major osteoporosis related fracture = or greater than 20% or a 10 year probability of a hip fracture = or greaterthan 3% should be considered for pharmacological treatment for the preventionof osteoporosis. For further information, including treatment recommendations, please referto the 2019 ISCD Official Positions (http://www.iscd.org) and the NOF's Clinician's Guide to Prevention and Treatment of Osteoporosis (http://www.nof.org/professionals/clinical-guidelines) THIS IS AN ELECTRONICALLY VERIFIED FINAL REPORT 09/07/2023 9:22 AM - Electronically signed by Pamela Cuenca M.D. TW: TW Report ID: [id number] Reading Location: [place] [id number] [facility] M[facility] IMG DXA PROCEDURES Final R esult * HM COLONOSCOPY (02/26/2015) Historical Provider HEALTH MAINTENANCE Final Result from Last 3 Months or Most Recently Relevant to Health Maintenance Insurance [facility] Advance Directives For more information, please contact: [phone] * Full Code (Latest Code Status on File) Date Activated Date Inactivated Comments 01/06/2024 12:28 AM 01/12/2024 7:51 PM
--- OUTSIDE RECORDS SUMMARY | 2024-10-30 17:09 | XMS_ITS | Clinical Summary ---
Author Organization [facility] Address [address] [place] [address] Care Team Providers Care Behavioral Health Professional Name Role Phone Ranjan Barrett MD Primary Care Provider [phone] Source Comments [facility],non-owned Affiliates and Associated Physician Practices is amultiple site organization consisting of ambulatory clinics and hospital sitesin [place], [place], [place] and [place]. This disclosure is being madepursuant to the Care Everywhere program and may not contain all information available regarding this patient. Last updated 18.[facility] Allergies No known active allergies Medications * Be aware that medications may not be up to date on this document. Alwaysverify current medications with the patient. Medication Sig Dispensed Refills Start Date End Date Status Cholecalciferol (VITAMIN D3) 1000 UNITS Take by mouth DAILY. 02/21/2017 Acti ve calcium citrate-vitamin D (CITRACAL PLUS D) 315-200 MG-UNIT tablet Take by mouth DAILY. 02/21/2017 Acti ve meloxicam (MOBIC) 7.5 MG tablet Take by mouth. 02/21/2017 Active SULFASALAZINE PO Take 1,000 mg by mouth 2 times daily Active oxyCODONE, immediate release, (ROXICODONE) 5 MG tablet Take 1 tablet by mouth every 6 hours as needed 0 12/13/2019 Active Additional Information Patient not taking.Reported on 03/06/2020 folic acid (FOLVITE) 1 MG tablet Take 1 tablet by mouth once daily 12/14/2019 Active Additional Information Patient not taking.Reported on 01/24/2020 polyethylene glycol 3350 (MIRALAX) 17 g packet Take 17 g by mouth once daily 12/14/2019 Active senna-docusate (SENOKOT-S) 8.6-50 MG tablet Take 1 tablet by mouth once daily as needed for Constipation 12/13/2019 Active Additional Information Patient not taking.Reported on 03/06/2020 alendronate (FOSAMAX) 10 MG tablet Take 1 tablet by mouth daily before breakfast 12/14/2019 Active cyclobenzaprine (FLEXERIL) 5 MG tablet Take 1 tablet by mouth 3 times daily as needed 12/13/2019 Active acetaminophen (TYLENOL) 500 MG tablet Take 1 tablet by mouth every 6 hours as needed for Fever or Pain Maximum allowable Acetaminophen amount = 4 Grams (4000 mg) / 24 hours. 12/13/2019 Active Active Problems Problem Noted Date Diagnosed Date Weakness 12/06/2019 Fall 12/06/2019 Cervical spondylosis with myelopathy and radicul opathy 04/25/2017 Other spondylosis with radiculopathy, cervical r egion 04/25/2017 Psoriatic arthritis 02/21/2017 Family History Medical History Relation Name Comments Cancer - Bladder Mother Hypertension Mother Cancer - Other Sister Relation Name Status Comments Mother Sister Social History Tobacco Use Types Packs/Day Years Used Date Smoking Tobacco: Former Cigarettes Q uit: 02/22/2004 Smokeless Tobacco: Never Alcohol Use Standard Drinks/Week Comments No 0 (1 standard drink = 0.6 oz pur e alcohol) Sex and Gender Information Value Date Recorded Sex Assigned at Not on file Gender Identity Not on file Sexual Orientation Not on file Last Filed Vital Signs Vital Sign Reading Time Taken Comments Blood Pressure 133/77 12/13/2019 12:05 PM CDT Pulse 70 12/13/2019 12:05 PM CDT Temperature 36.6 C (97.9 F) 12/13/2019 12:05 PM CDT Respiratory Rate 18 12/13/2019 12:05 PM CDT Oxygen Saturation 97% 12/13/2019 12:05 PM CDT Inhaled Oxygen Concentration - - Weight 57.2 kg (126 lb) 03/06/2020 2:21 PM CDT Height 170.2 cm (5' 7 ) 12/06/2019 12:06 AM CDT Body Mass Index 19.73 12/06/2019 12:06 AM CDT Plan of Treatment Health Maintenance Due Date Last Done Comments BONE DENSITY TESTING 1950 SCOTTIE (AGES 45-75) - COL ON CA SCREENING 1950 COLON MONITORING 1950 COLONOSCOPY - COLON CA SCREENING 1950 CT COLONOGRAPHY - COLON CA SCREENING 1950 Colorectal Cancer Screening 1950 FIT - COLON CA SCREENING 1950 FLEX SIG - COLON CA SCREENING 1950 LIPID TESTING 1950 MAMMOGRAM 1950 MEDICARE AWV 12 MONTHS 1950 HEPATITIS C SCREENING 11/22/1969 DTAP/TDAP/TD VACCINES (1 - Tdap) 11/26/1970 PNEUMOCOCCAL VACCINE 50+ (1 of 1 - PCV) 11/26/2001 ZOSTER VACCINE (1 of 2) 11/26/2001 Respiratory Syncytial Virus (RSV) Vaccine Pt: or over 60 yrs (1 - Risk 60-74 years 1-dose series) 2011 COVID-19 VACCINE ( - 2023-2 5 season) 2024 DEPRESSION SCREENING 07/25/2024 INFLUENZA VACCINE (Season Ended) 2025 05/20/2016, 05/22/2015 HEPATITIS B VACCINE Aged Out No longe r eligible based on patient's age to complete this topic HIB VACCINE Aged Out No longer eligi ble based on patient's age to complete this topic HPV VACCINE Aged Out No longer eligi ble based on patient's age to complete this topic MENINGOCOCCAL (Group B) VACCINE SHARED DECISION-MAKING Aged Out No longer eligible based on patient's age to complete this topic MENINGOCOCCAL GROUPS A/C/Y/W VACCINE Aged Out No longer eligible b ased on patient's age to complete this topic Medical Devices Implanted Type Area Lock Stitch Channeler Device Identifier Shelf Expiration Date Model / Serial / Lot Screw 3.5mm 12mm Ma Spne Cntrn Bone Implanted:Qty: 2 on 12/07/2019 by Sai Hubbard MD at [facility] N/A: Spine Cervical [employer] [id number] / / Screw 3.5mm 16mm Ma Drv Bdy Rome Sdl Spne Implanted:Qty: 2 on 12/07/2019 by Sai Hubbard MD at [facility] N/A: Spine Cervical [employer] [id number] / / Screw 3.5mm 14mm Ma Drv Bdy Rome Sdl Spne Implanted:Qty: 2 on 12/07/2019 by Sai Hubbard MD at [facility] N/A: Spine Cervical [employer] [id number] / / Screw 3.5mm 20mm Ma Drv Bdy Rome Sdl Spne Implanted:Qty: 2 on 12/07/2019 by Sai Hubbard MD at [facility] N/A: Spine Cervical [employer] [id number] / / Screw 4mm 20mm Ma Drv Bdy Rome Sdl Spne Implanted:Qty: 2 on 12/07/2019 by Sai Hubbard MD at [facility] N/A: Spine Cervical [employer] [id number] / / 4.0x26mm Screw Implanted:Qty: 2 on 12/07/2019 by Sai Hubbard MD at [facility] N/A: Spine Cervical [employer] [id number] / / Description:ORTHOFIX CENTURI ON Screw Set Spne Opn Tib Fx Implanted:Qty: 12 on 12/07/2019 by Sai Hubbard MD at [facility] N/A: Spine Cervical [employer] [id number] / / Rome Spnl 120mm 3.5mm Cntrn Ti Post Implanted:Qty: 2 on 12/07/2019 by Sai Hubbard MD at [facility] N/A: Spine Cervical [employer] [id number] / / Graft Bone Canc 4-9.5mm 15cc Frzdr Chp Implanted:Qty: 1 on 12/07/2019 by aSi Hubbard MD at [facility] N/A: Spine Cervical [employer] 02/17/2024 [id number] / / Description:ID:[id number] Advance Directives * Full Code (Latest Code Status on File) Date Activated Date Inactivated Comments 12/13/2019 4:58 PM 12/28/2019 5:09 PM * Full Code Date Activated Date Inactivated Comments 12/06/2019 11:50 AM 12/13/2019 4:48 PM * Full Code Date Activated Date Inactivated Comments 12/06/2019 8:53 AM 12/06/2019 8:53 AM Care Teams Behavioral Health Professional Relationship Specialty Start Date End Date Rnajan Barrett MD [address] [place] [address] PCP - General 12/27/19
--- OUTSIDE RECORDS SUMMARY | 2024-10-30 17:10 | XMS_ITS | Referral Summary ---
Author Organization [facility] Address [address] [place] [address] Care Team Providers Care Ditch Cleaner Name Role Phone Unavailable Primary Care Provider [...] diabetes. Assessment & Plan (08/27/2021 8:40 PM REHAB SPEC): Pre-diabetes/hyperglycemia is a precursor to Dm. Stressed [...] calcium Assessment & Plan (05/29/2023 9:54 PM REHAB SPEC): Continue Fosamax. She states she has supply [...] exercise Assessment & Plan (08/27/2021 8:47 PM REHAB SPEC): Continue Fosamax calcium vitamin-D and exercise. Due [...] able Assessment & Plan (08/27/2021 8:39 PM REHAB SPEC): Continue fiber exercise and water. States she [...] provided Assessment & Plan (08/31/2020 6:05 PM REHAB SPEC): Mammogram order provided Assessment & Plan (02/12/2020 9:43 PM CDT): Mammogram order provided Rheumatoid arthritis 11/11/2017 Assessment & Plan (02/01/2024 7:01 AM CDT): History of psoriatic arthritis rheumatoid arthritis. Patient has been following with film numberer but has not seen 1 in a few years as patient would not keep appointments. I would be glad to make the referral back to specialist. She would need assistance with transportation. At this point she was not actively complaining of symptoms so will continue to monitor Assessment & Plan (05/29/2023 9:52 PM REHAB SPEC): I have made referrals multiple times to the film numberer. Patient does not seem to be able to make it to the film numberer on her own. Memory is probably the cause. I will reach out to the daughter myself to see if we can get some assistance in her care. Assessment & Plan (04/30/2023 2:09 PM CDT): Patient has not seen a film numberer in quite a few years. I have [...] longer feels as though she can get [place] for her care at [facility]. Encouraged follow-up in [place] with [facility]. Referral has been made. She has the contact information to reach back out to them so she can reestablish and determine appropriate treatment for her symptoms. Assessment & Plan (10/13/2022 11:07 PM CDT): Patient has history of psoriatic arthritis and rheumatoid arthritis. Had been following with film numberer in [place] but it is very difficult for her to get to those visits now. She would like to see a film numberer closer to home. She prefers [facility]. Will make the referral to [facility] film numberer and await recommendations. Assessment & Plan (05/12/2022 11:07 AM CDT): Continue per Rheumatology. Assessment & Plan (02/15/2022 10:34 AM CDT): Continue per Rheumatology Dr. Evans. She is having trouble getting all her medications as she needs an eye exam to continue with the Plaquenil. Will try to work with director of social services to help make all of this happen so that she can get the care she needs. Also needs assistance with transportation to keep these appointments. Assessment & Plan (08/27/2021 8:45 PM REHAB SPEC): Continue per Rheumatology Assessment & Plan (02/15/2021 10:26 AM CDT): Continue per Rheum Assessment & Plan (08/31/2020 6:05 PM REHAB SPEC): Per Rheumatology Assessment & Plan (03/22/2020 12:56 [...] 12/07/2016 Assessment & Plan (08/31/2020 6:03 PM REHAB SPEC): Continue per spine surgeon prn Assessment & Plan (02/12/2020 9:32 PM CDT): S/p surgical repair. Continue per Ortho Spine. Wear c-collar as instructed. Avoid pillow as instructed. Keep f.u in approx 6 weeks as instructed. Hypertension 12/07/2016 Assessment & Plan (02/01/2024 6:58 AM CDT): Currently stable without medication Assessment & Plan (05/29/2023 9:52 PM REHAB SPEC): Bp is stable/in acceptable range for any [...] medication Assessment & Plan (08/27/2021 8:38 PM REHAB SPEC): Bp is stable/in acceptable range for any co-morbidities. Encouraged to limit sodium intake and exercise for weight control. Currently stable without medication Assessment & Plan (02/15/2021 10:25 AM CDT): Bp is stable/in acceptable range for any co-morbidities. Encouraged to limit sodium intake and exercise for weight control. Currently controlled without medication Assessment & Plan (08/31/2020 6:04 PM REHAB SPEC): Bp is stable/in acceptable range for any [...] 09/16/2016 Assessment & Plan (08/27/2021 8:38 PM REHAB SPEC): Patient is on Plaquenil. Her film numberer is willing medicine until she gets her eye exam done. Strongly encouraged her to follow through with this. Psoriatic arthritis 09/16/2016 Assessment & Plan (02/01/2024 7:01 AM CDT): History of psoriatic arthritis rheumatoid arthritis. Patient has been following with film numberer but has not seen 1 in a few years as patient would not keep appointments. I would be glad to make the referral back to specialist. She would need assistance with transportation. At this point she was not actively complaining of symptoms so will continue to monitor Assessment & Plan (05/29/2023 9:52 PM REHAB SPEC): I have made referrals multiple times to the film numberer. Patient does not seem to be able to make it to the film numberer on her own. Memory is probably the cause. I will reach out to the daughter myself to see if we can get some assistance in her care. Assessment & Plan (04/30/2023 2:09 PM CDT): Patient has not seen a film numberer in quite a few years. I have [...] longer feels as though she can get [place] for her care at [facility]. Encouraged follow-up in [place] with [facility]. Referral has been made. She has the contact information to reach back out to them so she can reestablish and determine appropriate treatment for her symptoms. Assessment & Plan (10/13/2022 11:07 PM CDT): Patient has history of psoriatic arthritis and rheumatoid arthritis. Had been following with film numberer in [place] but it is very difficult for her to get to those visits now. She would like to see a film numberer closer to home. She prefers [place] area. Will make the referral to [facility] film numberer and await recommendations. Assessment & Plan (02/15/2022 10:34 AM CDT): Continue per Rheumatology Dr. Evans. She is having trouble getting all her medications as she needs an eye exam to continue with the Plaquenil. Will try to work with director of social services to help make all of this happen so that she can get the care she needs. Also needs assistance with transportation to keep these appointments. Assessment & Plan (08/27/2021 8:38 PM REHAB SPEC): Continue per Rheumatology. Assessment & Plan (02/15/2021 10:25 AM CDT): Continue per Rheum Assessment & Plan (08/31/2020 6:05 PM REHAB SPEC): Per Rheumatology Assessment & Plan (03/22/2020 12:56 PM CDT): Continue per Rheum Assessment & Plan (02/12/2020 9:43 PM CDT): Per Fire Crew Worker Muscle weakness (generalized) 06/15/2016 Assessment & Plan [...] provided. Assessment & Plan (08/31/2020 6:05 PM REHAB SPEC): Encouraged activity as tolerated. Discussed PT and [...] 02/01/2024 Assessment & Plan (05/29/2023 9:53 PM REHAB SPEC): Patient is showing significant memory changes. She [...] been prescribed methotrexate and Plaquenil by her film numberer. Medicare annual wellness visit, subsequent 02/13/2022 05/12/2022 Assessment & Plan (02/15/2022 10:36 AM CDT): Encouraged healthy lifestyle, good nutrition and exercise. Encouraged Calcium and Vitamin D and weight bearing exercise for bone health. Reviewed immunizations. Reviewed age appropirate screenings. Medicare Wellness Documentation is completed within the chart Annual physical exam 08/27/2021 022 Assessment & Plan (08/27/2021 8:39 PM REHAB SPEC): Encouraged healthy lifestyle, good nutrition and exercise. Encouraged Calcium and Vitamin D and weight bearing exercise for bone health. Reviewed immunizations Reviewed age appropirate screenings. Encouraged her screenings. Reviewed with her that essence can help with the rights that she can call the number on the back of the card. Fatigue 08/27/2021 02/13/2022 Assessment & Plan (08/27/2021 8:40 PM REHAB SPEC): Probably multifactorial. Check labs and followup to re-evaluate BMI 27.0-27.9,adult 08/25/2021 10/14/19 23 Assessment & Plan (05/12/2022 11:14 AM CDT): Weight/BMI is in healthy range. Continue healthy lifestyle to maintain. Assessment & Plan (02/15/2022 10:35 AM CDT): Weight/BMI is in healthy range. Continue healthy lifestyle to maintain. Assessment & Plan (08/25/2021 10:50 AM REHAB SPEC): Weight/BMI is in healthy range. Continue healthy [...] understanding. Assessment & Plan (08/31/2020 6:06 PM REHAB SPEC): Reviewed importance of screening. Pt voiced understanding. BMI 20.0-20.9, adult 08/11/2020 021 Assessment & Plan (08/11/2020 4:12 PM REHAB SPEC): Weight/BMI is in healthy range. Continue healthy lifestyle to maintain. Annual physical exam 03/21/2020 021 Assessment & Plan (08/31/2020 6:05 PM REHAB SPEC): Encouraged healthy lifestyle, good nutrition and exercise. [...] 022 Assessment & Plan (08/31/2020 6:04 PM REHAB SPEC): Patient states better since seeing Dr. Caba. [...] an MRI lumbar spine was done at [facility] but it is not available in Care [...] PCV 13 05/20/2016 Pneumococcal Polysaccharide PPV23 09/20/2018 Social History Tobacco Use Types Packs/Day Years Used Date Smoking Tobacco: Former Smokeless Tobacco: Never Tobacco Cessation:Counseling Given: Not Answered Comments:quite 2005 Alcohol Use Standard Drinks/Week Comments Not Currently 0 (1 standard drink = 0.6 oz pur e alcohol) [facility] Utilities Answer Date Recorded In the past 12 months has e electric, gas, oil, or water company threatened to [...] often do you attend chur ch or anglican services? Never 03/13/2024 Do you belong to any clubs o r organizations such as caodaism groups, unions, fraternal or athletic groups, or [...] money to buy more. Never true 03/13/20 24 Within the past 12 months, t he [...] any time in the past 12 m [facility], were you homeless or living in a prison (including now)? No 03/13/2024 Personal Safety Answer Date Recorded Have you ever been in or are you currently in a harmful physical or emotional relationship or is someone making you feel afraid or unsafe? Denies 01/05/2024 Comments No Sex and Gender Information Value Date Recorded Sex Assigned at Not on file Legal Sex Female 7:21 AM REHAB SPEC Gender Identity Not on file Sexual Orientation [...] 01/06/2024 4:57 AM CDT Plan of Treatment Not on file Goals Goal Patient Goal Type Associated Problems Recent Progress Patient-Stated? Author AVELINA General Goal - Patient schedules and keeps appointments with all recommended providers ACO Care Management No Kae Cabral, RN Note: Problem: Potential for medical complications [...] Associated Diagnosis Comments SCREENING MAMMOGRAM BILATERAL W ARTEMIO Schedule Routine, Read Routine (OP Routine) 09/07/2023 8:37 AM REHAB SPEC Breast cancer screening by mammogram DEXA AXIAL SKELETON BONE DENSITY 1 OR MORE SITES Schedule Routine, Read Routine (OP Routine) 09/07/2023 8:37 AM REHAB SPEC Menopause HM COLONOSCOPY Routine 02/26/2015 from Last 3 Months or Most Recently Relevant to Health Maintenance Results * Screening Mammogram Bilateral W Artemio (09/07/2023 8:37 AM REHAB SPEC) Anatomical Region Laterality Modality Breast Bilateral Mammography Impressions 09/07/2023 8:49 AM REHAB SPEC BI-RADS ATLAS category (overall): 1 - Negative There is no mammographic evidence of malignancy. A 1 year screening mammogram is recommended. The patient has been or will be contacted. We recommend annual screening mammography for women at average risk of breast cancer beginning at age 40, based on guidelines of the [employer] (ACR Practice Parameter for the Performance of Screening and Diagnostic Mammography) and [employer]. For women with and elevated risk of breast cancer, please refer to the ACR Practice Parameter for specific screening recommendations. The patient will be entered into a reminder system with a target due date of 1 year for her next screening exam. Narrative 09/07/2023 8:49 AM REHAB SPEC Screening Mammogram Bilateral W Artemio: 09/07/23 The study was acquired using full field digital technology and interpreted from soft copy. 2D digital mammographic views, as well as 3D digital tomosynthesis were performed in the CC and MLO projections. CLINICAL: Breast cancer screening by mammogram. No relevant medical history has been documented for this patient. History of breast cancer in Mother. COMPARISONS: 04/22/2022 Screening Mammogram Bilateral W Artemio 12/09/2018 Screening Mammogram Bilateral W Artemio 04/06/2017 Stereotactic Breast Biopsy 02/11/2017 Breast Imaging Diagnostic Outside Reference 02/11/2017 Breast Imaging US Outside Reference BREAST TISSUE: The breasts have scattered areas of fibroglandular density. FINDINGS: A biopsy marker clip is unchanged in the right breast. There is no new suspicious finding in either breast on mammogram. Kiesha MORRIS IM MAMMO PROCEDURES Final Result * Dexa Axial Skeleton Bone Density 1 or 2 Site (09/07/2023 8:37 AM REHAB SPEC) Anatomical Region Laterality Modality Body N/A Mammography 09/07/2023 9:20 AM REHAB SPEC Narrative 09/07/2023 9:22 AM REHAB SPEC EXAM DESCRIPTION: DEXA AXIAL SKELETON BONE DENSITY 1 OR MORE SITES REASON FOR STUDY: 72 y/o year old F with given history of: Postmenopausal status. History of prior fracture and rheumatoid arthritis. Patient has taken/is taking Fosamax, vitamin-D and calcium. Touch Up Carver/Model: SureDone A (S/N [id number]) CLINICAL INFORMATION: Current height: 67 inches Maximum [...] Pamela Cuenca M.D. TW: TW Report ID: [id number] Reading Location: [id number] Procedure Note Pamela Cuenca MD - 09/07/2023 EXAM DESCRIPTION: DEXA AXIAL SKELETON BONE DENSITY 1 OR MORE SITES REASON FOR STUDY: 72 y/o year old F with given history of:Postmenopausal status. History of prior fracture and rheumatoid arthritis. Patient has taken/is taking Fosamax, vitamin-D and calcium. Touch Up Carver/Model: HoloiSpot.tv A (S/N [id number]) CLINICAL INFORMATION: Current height: 67 inches Maximum [...] Pamela Cuenca M.D. TW: TW Report ID: [id number] Reading Location: [place] [address] [place] Kiesha R. Swinigan PA IMG DXA PROCEDURES Final R esult * HM COLONOSCOPY (02/26/2015) us Historical Provider MD HEALTH MAINTENANCE Final Result from Last 3 Months or Most Recently Relevant to Health Maintenance Insurance [facility] Advance Directives For more information, please contact: [phone] * Full Code (Latest Code Status on File) Date Activated Date Inactivated Comments 01/06/2024 12:28 AM 01/12/2024 7:51 PM
--- OUTSIDE RECORDS SUMMARY | 2024-10-30 17:10 | XMS_ITS ---
Author Organization [facility] Care Team Providers Care Embedded Engineer Name Role Phone Shane Moreira Unavailable Unavailable Allergies and adverse reactions No Known Allergies Care Team Name Role Address Phone Organization Dates Shane Moreira PCP [address] [place], [address], [place] States (Office): [facility] 12/28/2019 - 02/04/2020 Mental Status Section Date Assessment Total Score Description 02/04/2020 BIMS 15 cognitively int act CAM 0 No delirium ind icated PHQ-9 01 minimal depress ion 01/04/2020 BIMS 15 cognitively int act CAM 0 No delirium ind icated PHQ-9 00 Problems Problem # Description Date of onset Resolved Date Code CodeSystem Concern Status 1 MUSCLE WEAKNESS (GENERALIZED) 12/29/19 20 01/31/[address] completed 2 AGE-RELATED OSTEOPOROSIS WITHOUT CURRENT PATHOLOGICAL FRACTURE 12/28/[address] active 3 ESSENTIAL (PRIMARY) HYPERTENSION 12/28/[address] active 4 HEREDITARY AND IDIOPATHIC NEUROPATHY, UNSPECIFIED 12/28/[address] active 5 NEUROGENIC BOWEL, NOT ELSEWHERE CLASSIFIED 12/28/[address] active 6 NEUROMUSCULAR DYSFUNCTION OF BLADDER, UNSPECIFIED 12/28/[address] active 7 OTHER SPONDYLOSIS WITH MYELOPATHY, CERVICAL REGION 12/28/[address] active 8 PAIN, UNSPECIFIED 12/28/[address] active 9 PSORIATIC ARTHRITIS MUTILANS 12/28/[id number] active 10 SPINAL STENOSIS, LUMBAR REGION WITHOUT NEUROGENIC CLAUDICATION 12/28/[address] active 11 UNSPECIFIED DEMENTIA, UNSPECIFIED SEVERITY, WITHOUT BEHAVIORAL DISTURBANCE, PSYCHOTIC DISTURBANCE, MOOD DISTURBANCE, AND ANXIETY 12/28/[address] active 12 UNSPECIFIED OPEN WOUND OF UNSPECIFIED PART OF NECK, SEQUELA 12/28/[address] active Reason for Referral No Reasons for Referral Entered Social History Social History Observation Description Start Date End Date Code Code System Current Smoking Status Tobacco smoking consumption unknown 512455975 SNOMED CT Sex Assigned At Female 1950 25682-9 [facility] Vital Signs Code Code System Vitals Name Values and Units Timing Information 51600-8 [facility] Weight Xqonv=844.0 Units=Lbs 02/2020 8302-2 [facility] Height Value=66.0 Units=Inches 0 12/31/2019
--- OUTSIDE RECORDS SUMMARY | 2024-10-30 17:10 | XMS_ITS | Clinical Summary ---
Author Organization [facility] Address [address] [place] [address] Care Team Providers Care Advisor Advocate Angel Co Founder Name Role Phone Unavailable Primary Care Provider Unavailabl e Allergies No known active allergies Medications alendronate (FOSAMAX) 70 MG tablet Take 1 tablet (70 mg total) by mouth Weekly AM. 0 0 Active baclofen (LIORESAL) 10 MG tablet Take 1 tablet (10 mg total) by mouth 3 (three) times a day. 0 0 Active bisacodyl (DULCOLAX) 10 MG suppository Insert 1 suppository (10 mg total) into the rectum daily. 0 0 Active folic acid (FOLVITE) 1 MG tablet Take 1 tablet (1 mg total) by mouth daily. 0 0 Active senna-docusate (SENOKOT-S) 8.6-50 MG Take 1 tablet by mouth daily. 0 0 Active sulfaSALAzine (AZULFIDINE) 500 MG tablet Take 2 tablets (1,000 mg total) by mouth 2 (two) times a day. 0 0 Active tamsulosin (FLOMAX) 0.4 MG capsule Take 1 capsule (0.4 mg total) by mouth after dinner. 0 0 Active Active Problems Problem Noted Date Diagnosed Date Cervical spondylosis with myelopathy 12/13/2019 Hypertension 12/13/2019 Dementia 12/13/2019 Neuropathy 12/13/2019 Immunizations Immunization Administration Dates Next Due Influenza, Unspecified 12/13/2019(Deferr ed: Patient not in facility during flu season) Family History Medical History Relation Name Comments Rheum arthritis Brother Parkinsonism Father Cancer Mother Hypertension Mother Stroke Sister Relation Name Status Comments Brother Father Mother Sister Social History Tobacco Use Types Packs/Day Years Used Date Smoking Tobacco: Former Smokeless Tobacco: Never Comments:pt unable to rememb er pack/year Alcohol Use Standard Drinks/Week Comments Not Currently 0 (1 standard drink = 0.6 oz pur e alcohol) Comments Unknown Sex and Gender Information Value Date Recorded Sex Assigned at Not on file Legal Sex Female 12:26 PM EDT Gender Identity Not on file Sexual Orientation Not on file Last Filed Vital Signs Vital Sign Reading Time Taken Comments Blood Pressure 106/70 12/28/2019 7:15 AM CDT Pulse 105 12/28/2019 7:15 AM CDT Temperature 36.1 C (97 F) 12/28/2019 7:15 AM CDT Respiratory Rate 16 12/28/2019 7:15 AM CDT Oxygen Saturation 98% 12/28/2019 7:15 AM CDT Inhaled Oxygen Concentration - - Weight 57.2 kg (126 lb) 12/23/2019 5:00 PM CDT Height 167.6 cm (5' 6 ) 12/13/2019 5:13 PM CDT Body Mass Index 20.34 12/13/2019 5:13 PM CDT Plan of Treatment Not on file Advance Directives * Full Resuscitation (Latest Code Status on File) Date Activated Date Inactivated Comments 12/13/2019 6:07 PM 12/28/2019 7:16 PM
--- OUTSIDE RECORDS SUMMARY | 2024-10-30 17:10 | XMS_ITS | Clinical Summary ---
Author Organization [facility] Address [address] [place] [address] Care Team Providers Care Child Psychology Teacher Name Role Phone Briana Patel MD Primary Care Provider + Allergies No known active allergies Medications sulfaSALAzine (AZULFIDINE) 500 MG tabletIndications :Psoriatic arthritis ([facility]) Take 0.5 tablets (250 mg total) by mouth 2 (two) times daily. 90 tablet 5 01/14/20 25 Active hydroCHLOROthiazi de (MICROZIDE) 12.5 MG capsuleIndication s:Primary hypertension Take 1 capsule (12.5 mg total) by mouth every morning. 90 capsule 3 5 10/16/19 26 Active Active Problems Problem Noted Date Diagnosed Date Moderate protein-calorie malnutrition ([facility]) 01/06/2024 Parkinsonism ([facility]) 01/06/2024 Overview (10/15/2024): Family is not certain of this. She does not have a tremor. She has not been on carbidopa levodopa. Severe dementia, unspecified dementia type, unspecified whether behavioral, psychotic, or mood disturbance or anxiety 01/05/2024 Overview (10/15/2024): Significantly worsened over the past year. Became difficult last fall when she was admitted due to hallucinations. Son in law indicates that this was a reaction to an antipsychotic she was given possibly in the hospital. Now she is off all her medications. She is confused but she is not combative. She will occasionally lash out verbally to family but not typically to other people. She blames them for seeking out higher level of care. Assessment & Plan (10/15/2024 1:25 PM CDT): POA is activated which is appropriate. Patient is oriented only to self. She is easily redirectable. She is not appropriate for donepezil since her dementia is quite advanced. She does not appear to be a flight risk but is unable to manage her own medications as a result of her memory loss. Neuropathy 12/26/2022 Vitamin D deficiency 10/13/2022 Osteopenia of multiple sites 08/27/2021 History of tobacco use 02/18/2021 Overview (08/15/2024): Quit 2004 Generalized weakness 02/15/2021 Slow transit constipation 02/15/2021 Rheumatoid arthritis ([facility]) 8 Overview (10/15/2024): She was previously on sulfasalazine 250 mg twice daily. This was last reported on discharge paperwork from April. She is since not on this medication and PDMP shows it has not been filled in the past year. She notes significant pain particularly in knees and ankles along with her back. Assessment & Plan (10/15/2024 1:27 PM CDT): Would like to resume sulfasalazine while awaiting egg gatherer referral. Recommend Tylenol otherwise for pain. Await CMP to confirm liver function. Ataxic gait 12/07/2016 Essential hypertension 12/07/2016 Overview (10/15/2024): Was taking losartan and HCTZ. Assessment & Plan (10/15/2024 1:26 PM CDT): Not controlled. Would like to resume HCTZ but need observed therapy since she is unable to manage on her own and family is unable to care for her. Patient would benefit from long term facility for medication management. Family is working towards this. Psoriatic arthritis ([facility]) 09/16/2016 Encounters Date Type Department Care Team Description 10/15/2024 12:40 PM CDT Office Visit [address] [place] [address] Briana Patel MD Dementia 10/15/2024 Travel 09/25/[address] [place] [address] Briana Patel MD Information 08/30/2024 Patient Outreach [address] [place] [address] Briana Patel MD Pre-visit Gap Closure from Last 3 Months Immunizations Name Administration Dates Next Due Fluzone High Dose - >Age 65 (Prefilled Syringe) 04/20/2023,05/12/2022,05/20/2021,2019 Influenza (Generic) 05/22/2015 Pneumococcal (Pneumovax 23) 09/20/2018 Pneumococcal (Prevnar 13) 05/20/2016 Social History Tobacco Use Types Packs/Day Years Used Date Smoking Tobacco: Former Cigarettes Passive Smoke Exposure: Past Smokeless Tobacco: Never Comments:Quit over 25 years ago Alcohol Use Standard Drinks/Week Comments Not Currently 0 (1 standard drink = 0.6 oz pur e alcohol) PHQ-2 Answer Date Recorded Patient Health Questionnaire-2 Score 1 10/15/2024 Comments No Sex and Gender Information Value Date Recorded Sex Assigned at Not on file Legal Sex Female 3:26 PM [employer] Gender Identity Not on file Sexual Orientation Not on file Last Filed Vital Signs Vital Sign Reading Time Taken Comments Blood Pressure 128/92 10/15/2024 12:35 PM CDT Pulse 70 10/15/2024 12:35 PM CDT Temperature 37.3 C (99.1 F) 10/15/2024 12:35 PM CDT Respiratory Rate 18 10/15/2024 12:3 5 PM CDT Oxygen Saturation 97% 10/15/2024 12: 35 PM CDT Inhaled Oxygen Concentration - - Weight 71.1 kg (156 lb 12.8 oz) 025 12:35 PM CDT Height - - Body Mass Index - - Plan of Treatment Upcoming Encounters Date Type Department Care Team (Late st Contact Info) Description 11/19/2024 2:20 PM CDT Office Visit [facility] [place] [address] [place] [address] Briana Patel MD [address] [place] [address] Health Maintenance Due Date Last Done Comments Colorectal Cancer Screening Colonoscopy (10 Years) 1950 Hepatitis C 11/26/1969 DTaP, Tdap and Td Vaccines (1 - Tdap) 11/26/1970 Zoster Vaccines (1 of 2) 11/26/2001 Annual Medicare Wellness Visit 11/26/2016 COVID-19 Vaccine ( season) 2024 06/17/2021, 11/17/2020, 10/27/2020 Mammogram Screening 09/07/2025 09/07/2023, 04/22/2022, 12/09/2018, Additional history exists RSV Immunization or 60+ Years (1 - 1-dose 75+ series) 11/26/2026 Pneumococcal Vaccine: 65+ Years Completed 09/20/2018, 05/20/2016 Dexa Scan (General) Completed 09/07/2023, 09/07/2023, 11/17/2018 PHQ-2 (Physician [place]) Completed 10/15/2024 Meningococcal B Vaccine Aged Out No l onger eligible based on patient's age to complete this topic Meningococcal Vaccine Aged Out No xiao dany eligible based on patient's age to complete this topic RSV Immunizations Under 20 Months Aged Out No longer eligible based on patient's age to complete this topic Procedures Procedure Name Priority Date/Time Associated Diagnosis Comments COLLECTION VENOUS BLOOD VENIPUNCTURE Routine 10/15/2024 1:09 PM CDT Severe dementia, unspecified dementia type, unspecified whether behavioral, psychotic, or mood disturbance or anxiety (CMS/HCC) Confusion CBC W/DIFF AUTOMATED Routine 10/15/2024 1:09 PM CDT Severe dementia, unspecified dementia type, unspecified whether behavioral, psychotic, or mood disturbance or anxiety (CMS/HCC) COMPREHENSIVE METABOLIC PANEL Routine 10/15/2024 1:09 PM CDT Severe dementia, unspecified dementia type, unspecified whether behavioral, psychotic, or mood disturbance or anxiety (CMS/HCC) VITAMIN B-12 Routine 10/15/2024 1:09 PM CDT Severe dementia, unspecified dementia type, unspecified whether behavioral, psychotic, or mood disturbance or anxiety (CMS/HCC) TSH W/REFLEX Routine 10/15/2024 1:09 PM CDT Severe dementia, unspecified dementia type, unspecified whether behavioral, psychotic, or mood disturbance or anxiety (CMS/HCC) Confusion from Last 3 Months Results * TSH W/REFLEX (10/15/2024 1:09 PM CDT) TSH 0.964 0.358 - 3.740 uIU/ML 10/16/2024 11:51 AM CDT [facility] 10/15/2024 1:09 PM CDT Briana Patel MD LABORATORY Final Re sult [facility] [address] [place] [address], [place] [phone] * VITAMIN B-12 (10/15/2024 1:09 PM CDT) VITAMIN B12 S/P/B 208 193 - 986 PG/ML 10/16/2024 11:51 AM CDT [facility] 10/15/2024 1:09 PM CDT Briana Patel MD LABORATORY Final Re sult [facility] [address] [place] [address], [place] [phone] * (ABNORMAL) COMPREHENSIVE METABOLIC PANEL (10/15/2024 1:09 PM CDT) [facility] SODIUM S/P/B 142 136 - 145 MMOL/L 10/16/2024 11:51 AM CDT [facility] POTASSIUM S/P/B 3.8 3.5 - 5.1 MMOL/L 10/16/2024 11:51 AM CDT [facility] CHLORIDE S/P/B 107 98 - 107 MMOL/L 10/16/2024 11:51 AM CDT [facility] CO2 31.9 21 - 32 MMOL/L 10/16/2024 11:51 AM T [facility] GLUCOSE 97 70 - 99 MG/DL 10/16/2024 11:51 AM CDT [facility] BUN 15 7 - 18 MG/DL 10/16/2024 11:51 AM CDT [facility] CREATININE S/P/B 0.75 0.55 - 1.02 MG/DL 10/16/2024 11:51 AM T [facility] CALCIUM S/P/B 9.0 8.4 - 10.5 MG/DL 10/16/2024 11:51 AM CDT [facility] BILIRUBIN TOTAL S/P/B 0.7 0.2 - 1.0 MG/DL 10/16/2024 11:51 AM T [facility] ALKALINE PHOSPHATASE S/P/B 53(L) 55 - 142 U/L 10/16/2024 11:51 AM CDT [facility] AST 27 15 - 37 U/L 10/16/2024 11:51 AM CDT [facility] ALT 24 14 - 59 U/L 10/16/2024 11:51 AM CDT [facility] TOTAL PROTEIN S/P/B 6.4 6.4 - 8.2 G/DL 10/16/2024 11:51 AM CDT [facility] ALBUMIN S/P/B 3.8 3.4 - 5.0 G/DL 10/16/2024 11:51 AM CDT [facility] ANION GAP 3.1(L) 5 - 15 MMOL/L 10/16/2024 11:51 AM CDT [facility] Comment:REFERENCE RANGE NOT ESTABLISHED OSMOLALITY (CALC) 295 MOSM/KG 025 11:51 AM CDT [facility] Comment:REFERENCE RANGE NOT ESTABLISHED GFR ESTIMATE 85(L) >90 ML/MIN/1. 73 M2 10/16/2024 11:51 AM CDT [facility] GFR NOTES GFR REFERENCE S: 10/16/2024 11:51 AM CDT [facility] Comment: THE ESTIMATED GFR IS CALCULATED USING THE 2020 CKD-EPI EQUATION. THE FOLLOWING CATEGORIES FOR GRADING RENAL FUNCTION ARE RECOMMENDED BY THE INTERNATIONAL SOCIETY OF NEPHROLOGY (KDIGO 2012 CLINICAL PRACTICE GUIDELINE). G1,NORMAL OR HIGH: >89 ml/min/1.73 m2 G2,MILDLY DECREASED: 60-89 ml/min/1.73 m2 G3A,MILDLY TO MODERATELY DECREASED: 45-59 ml/min/1.73 m2 G3B,MODERATELY TO SEVERELY DECREASED: 30-44 ml/min/1.73 m2 G4,SEVERELY DECREASED: 15-29 ml/min/1.73 m2 G5,KIDNEY FAILURE: <15 ml/min/1.73 m2 10/15/2024 1:09 PM CDT us Briana Patel MD LABORATORY Final Re sult [facility] [address] [place] [address], * (ABNORMAL) CBC W/DIFF AUTOMATED (10/15/2024 1:09 PM CDT) WBC 4.00 4.00 - 10.80 x10'3/uL 10/15/2024 7:29 PM CDT [facility] RBC 4.16 4.10 - 5.40 x10'6/uL 10/15/2024 7:29 PM CDT [facility] HGB 13.1 12.0 - 16.0 G/DL 10/15/2024 7:29 PM CDT [facility] HCT 40.1 36.0 - 47.0 % 10/15/2024 7:29 PM CDT [facility] MCV 96.4 78.0 - 100.0 FL 10/15/2024 7:29 PM CDT [facility] MCH 31.5(H) 27.0 - 31.0 PG 10/15/2024 7:29 PM CDT [facility] MCHC 32.7(L) 33.0 - 36.0 G/DL 10/15/2024 7:29 PM CDT [facility] RDW 13.0 11.5 - 14.5 % 10/15/2024 7:29 PM CDT [facility] PLT 175 150 - 350 x10'3/uL 10/15/2024 7:29 PM CDT [facility] MPV 10.9(H) 7.4 - 10.4 FL 10/15/2024 7:29 PM CDT [facility] DIFFERENTIAL TYPE AUTOMATED DIFFERENTIAL 10/15/2024 7:29 PM CDT [facility] NEUTROPHILS % 61.4 % 10/15/2024 7:29 PM CDT [facility] LYMPHOCYTES % 26.5 % 10/15/2024 7:29 PM CDT [facility] MONOCYTES % 10.0 % 10/15/2024 7:29 PM CDT [facility] EOSINOPHILS % 1.5 % 10/15/2024 7:29 PM CDT [facility] BASOPHILS % 0.3 % 10/15/2024 7:29 PM CDT [facility] IMMATURE GRANS % 0.3 % 10/15/2024 7:29 PM CDT [facility] ABS. NEUTROPHILS 2.46 1.60 - 8.30 x10'3/uL 10/15/2024 7:29 PM CDT [facility] ABS. LYMPHOCYTES 1.06 0.80 - 4.70 x10'3/uL 10/15/2024 7:29 PM CDT [facility] ABS. MONOCYTES 0.40 0.00 - 1.50 x10'3/uL 10/15/2024 7:29 PM CDT [facility] ABS. EOSINOPHILS 0.06 0.00 - 0.40 x10'3/uL 10/15/2024 7:29 PM CDT [facility] ABS. BASOPHILS 0.01 0.00 - 0.20 x10'3/uL 10/15/2024 7:29 PM CDT [facility] ABS. IMMATURE GRANULOCYTES 0.01 0.00 - 0.03 x10'3/uL 10/15/2024 7:29 PM CDT [facility] 10/15/2024 1:09 PM CDT Briana Patel MD LABORATORY Final Re sult [facility] [address] [place] [address], from Last 3 Months Insurance [employer] Advance Directives Documents on File Type Date Recorded Patient Heat Curer Expl anation Power of Conveyor System Dispatcher 08/10/2024 11:47 AM Healthcare Agents on File Name Relationship Healthcare Agent Relationshi p Communication [facility] Care Teams Child Psychology Teacher Relationship Specialty Start Date End Date Briana Patel MD [address] [place] [id number] PCP - General FAMILY PRACTICE 09/28/24
--- OUTSIDE RECORDS SUMMARY | 2024-10-30 20:00 | XMS_ITS | Referral Summary ---
Author Organization [facility] Address [address] [place] [address] Care Team Providers Care Action Installer Name Role Phone Unavailable Primary Care Provider [...] diabetes. Assessment & Plan (08/27/2021 8:40 PM GIS MANAGER): Pre-diabetes/hyperglycemia is a precursor to Dm. Stressed [...] calcium Assessment & Plan (05/29/2023 9:54 PM GIS MANAGER): Continue Fosamax. She states she has supply [...] exercise Assessment & Plan (08/27/2021 8:47 PM GIS MANAGER): Continue Fosamax calcium vitamin-D and exercise. Due [...] able Assessment & Plan (08/27/2021 8:39 PM GIS MANAGER): Continue fiber exercise and water. States she [...] provided Assessment & Plan (08/31/2020 6:05 PM GIS MANAGER): Mammogram order provided Assessment & Plan (02/12/2020 9:43 PM CDT): Mammogram order provided Rheumatoid arthritis 11/11/2017 Assessment & Plan (02/01/2024 7:01 AM CDT): History of psoriatic arthritis rheumatoid arthritis. Patient has been following with manager furniture but has not seen 1 in a few years as patient would not keep appointments. I would be glad to make the referral back to specialist. She would need assistance with transportation. At this point she was not actively complaining of symptoms so will continue to monitor Assessment & Plan (05/29/2023 9:52 PM GIS MANAGER): I have made referrals multiple times to the manager furniture. Patient does not seem to be able to make it to the manager furniture on her own. Memory is probably the cause. I will reach out to the daughter myself to see if we can get some assistance in her care. Assessment & Plan (04/30/2023 2:09 PM CDT): Patient has not seen a manager furniture in quite a few years. I have [...] longer feels as though she can get [place] for her care at [facility]. Encouraged follow-up in [place] with [facility] Rheumatology. Referral has been made. She has the contact information to reach back out to them so she can reestablish and determine appropriate treatment for her symptoms. Assessment & Plan (10/13/2022 11:07 PM CDT): Patient has history of psoriatic arthritis and rheumatoid arthritis. Had been following with manager furniture in [place] but it is very difficult for her to get to those visits now. She would like to see a manager furniture closer to home. She prefers [facility]. Will make the referral to [facility] manager furniture and await recommendations. Assessment & Plan (05/12/2022 11:07 AM CDT): Continue per Rheumatology. Assessment & Plan (02/15/2022 10:34 AM CDT): Continue per Rheumatology Dr. Evans. She is having trouble getting all her medications as she needs an eye exam to continue with the Plaquenil. Will try to work with social services specialist to help make all of this happen so that she can get the care she needs. Also needs assistance with transportation to keep these appointments. Assessment & Plan (08/27/2021 8:45 PM GIS MANAGER): Continue per Rheumatology Assessment & Plan (02/15/2021 10:26 AM CDT): Continue per Rheum Assessment & Plan (08/31/2020 6:05 PM GIS MANAGER): Per Rheumatology Assessment & Plan (03/22/2020 12:56 [...] 12/07/2016 Assessment & Plan (08/31/2020 6:03 PM GIS MANAGER): Continue per spine surgeon prn Assessment & Plan (02/12/2020 9:32 PM CDT): S/p surgical repair. Continue per Ortho Spine. Wear c-collar as instructed. Avoid pillow as instructed. Keep f.u in approx 6 weeks as instructed. Hypertension 12/07/2016 Assessment & Plan (02/01/2024 6:58 AM CDT): Currently stable without medication Assessment & Plan (05/29/2023 9:52 PM GIS MANAGER): Bp is stable/in acceptable range for any [...] medication Assessment & Plan (08/27/2021 8:38 PM GIS MANAGER): Bp is stable/in acceptable range for any co-morbidities. Encouraged to limit sodium intake and exercise for weight control. Currently stable without medication Assessment & Plan (02/15/2021 10:25 AM CDT): Bp is stable/in acceptable range for any co-morbidities. Encouraged to limit sodium intake and exercise for weight control. Currently controlled without medication Assessment & Plan (08/31/2020 6:04 PM GIS MANAGER): Bp is stable/in acceptable range for any [...] 09/16/2016 Assessment & Plan (08/27/2021 8:38 PM GIS MANAGER): Patient is on Plaquenil. Her manager furniture is willing medicine until she gets her eye exam done. Strongly encouraged her to follow through with this. Psoriatic arthritis 09/16/2016 Assessment & Plan (02/01/2024 7:01 AM CDT): History of psoriatic arthritis rheumatoid arthritis. Patient has been following with manager furniture but has not seen 1 in a few years as patient would not keep appointments. I would be glad to make the referral back to specialist. She would need assistance with transportation. At this point she was not actively complaining of symptoms so will continue to monitor Assessment & Plan (05/29/2023 9:52 PM GIS MANAGER): I have made referrals multiple times to the manager furniture. Patient does not seem to be able to make it to the manager furniture on her own. Memory is probably the cause. I will reach out to the daughter myself to see if we can get some assistance in her care. Assessment & Plan (04/30/2023 2:09 PM CDT): Patient has not seen a manager furniture in quite a few years. I have [...] longer feels as though she can get [place] for her care at [facility]. Encouraged follow-up in [place] with [facility] Rheumatology. Referral has been made. She has the contact information to reach back out to them so she can reestablish and determine appropriate treatment for her symptoms. Assessment & Plan (10/13/2022 11:07 PM CDT): Patient has history of psoriatic arthritis and rheumatoid arthritis. Had been following with manager furniture in [place] but it is very difficult for her to get to those visits now. She would like to see a manager furniture closer to home. She prefers [place] area. Will make the referral to [facility] manager furniture and await recommendations. Assessment & Plan (02/15/2022 10:34 AM CDT): Continue per Rheumatology Dr. Evans. She is having trouble getting all her medications as she needs an eye exam to continue with the Plaquenil. Will try to work with social services specialist to help make all of this happen so that she can get the care she needs. Also needs assistance with transportation to keep these appointments. Assessment & Plan (08/27/2021 8:38 PM GIS MANAGER): Continue per Rheumatology. Assessment & Plan (02/15/2021 10:25 AM CDT): Continue per Rheum Assessment & Plan (08/31/2020 6:05 PM GIS MANAGER): Per Rheumatology Assessment & Plan (03/22/2020 12:56 PM CDT): Continue per Rheum Assessment & Plan (02/12/2020 9:43 PM CDT): Per [employer] Muscle weakness (generalized) 06/15/2016 Assessment & Plan [...] provided. Assessment & Plan (08/31/2020 6:05 PM GIS MANAGER): Encouraged activity as tolerated. Discussed PT and [...] 02/01/2024 Assessment & Plan (05/29/2023 9:53 PM GIS MANAGER): Patient is showing significant memory changes. She [...] been prescribed methotrexate and Plaquenil by her manager furniture. Medicare annual wellness visit, subsequent 02/13/2022 05/12/2022 Assessment & Plan (02/15/2022 10:36 AM CDT): Encouraged healthy lifestyle, good nutrition and exercise. Encouraged Calcium and Vitamin D and weight bearing exercise for bone health. Reviewed immunizations. Reviewed age appropirate screenings. Medicare Wellness Documentation is completed within the chart Annual physical exam 08/27/2021 022 Assessment & Plan (08/27/2021 8:39 PM GIS MANAGER): Encouraged healthy lifestyle, good nutrition and exercise. Encouraged Calcium and Vitamin D and weight bearing exercise for bone health. Reviewed immunizations Reviewed age appropirate screenings. Encouraged her screenings. Reviewed with her that essence can help with the rights that she can call the number on the back of the card. Fatigue 08/27/2021 02/13/2022 Assessment & Plan (08/27/2021 8:40 PM GIS MANAGER): Probably multifactorial. Check labs and followup to re-evaluate BMI 27.0-27.9,adult 08/25/2021 10/14/19 23 Assessment & Plan (05/12/2022 11:14 AM CDT): Weight/BMI is in healthy range. Continue healthy lifestyle to maintain. Assessment & Plan (02/15/2022 10:35 AM CDT): Weight/BMI is in healthy range. Continue healthy lifestyle to maintain. Assessment & Plan (08/25/2021 10:50 AM GIS MANAGER): Weight/BMI is in healthy range. Continue healthy [...] understanding. Assessment & Plan (08/31/2020 6:06 PM GIS MANAGER): Reviewed importance of screening. Pt voiced understanding. BMI 20.0-20.9, adult 08/11/2020 021 Assessment & Plan (08/11/2020 4:12 PM GIS MANAGER): Weight/BMI is in healthy range. Continue healthy lifestyle to maintain. Annual physical exam 03/21/2020 021 Assessment & Plan (08/31/2020 6:05 PM GIS MANAGER): Encouraged healthy lifestyle, good nutrition and exercise. [...] 022 Assessment & Plan (08/31/2020 6:04 PM GIS MANAGER): Patient states better since seeing Dr. Caba. [...] an MRI lumbar spine was done at [facility] but it is not available in Care [...] drink = 0.6 oz pur e alcohol) [facility] Utilities Answer Date Recorded In the [...] often do you attend chur ch or scientologist services? Never 03/13/2024 Do you belong to any clubs o r organizations such as voodoo groups, unions, fraternal or athletic groups, or [...] any time in the past 12 [facility], were you homeless or living in a penitentiary (including now)? No 03/13/2024 Personal Safety Answer Date Recorded Have you ever been in or are you currently in a harmful physical or emotional relationship or is someone making you feel afraid or unsafe? Denies 01/05/2024 Comments No Sex and Gender Information Value Date Recorded Sex Assigned at Not on file Legal Sex Female 7:21 AM GIS MANAGER Gender Identity Not on file Sexual Orientation [...] Read Routine (OP Routine) 09/07/2023 8:37 AM GIS MANAGER Breast cancer screening by mammogram DEXA AXIAL SKELETON BONE DENSITY 1 OR MORE SITES Schedule Routine, Read Routine (OP Routine) 09/07/2023 8:37 AM GIS MANAGER Menopause HM COLONOSCOPY Routine 02/26/2015 from Last 3 Months or Most Recently Relevant to Health Maintenance Results * Screening Mammogram Bilateral W Artemio (09/07/2023 8:37 AM GIS MANAGER) Anatomical Region Laterality Modality Breast Bilateral Mammography Impressions 09/07/2023 8:49 AM GIS MANAGER BI-RADS ATLAS category (overall): 1 - Negative There is no mammographic evidence of malignancy. A 1 year screening mammogram is recommended. The patient has been or will be contacted. We recommend annual screening mammography for women at average risk of breast cancer beginning at age 40, based on guidelines of the [employer] (ACR Practice Parameter for the Performance of Screening and Diagnostic Mammography) and [place] [employer]. For women with and elevated risk of breast cancer, please refer to the ACR Practice Parameter for specific screening recommendations. The patient will be entered into a reminder system with a target due date of 1 year for her next screening exam. Narrative 09/07/2023 8:49 AM GIS MANAGER Screening Mammogram Bilateral W Artemio: 09/07/23 The [...] 1 or 2 Site (09/07/2023 8:37 AM GIS MANAGER) Anatomical Region Laterality Modality Body N/A Mammography 09/07/2023 9:20 AM GIS MANAGER Narrative 09/07/2023 9:22 AM GIS MANAGER EXAM DESCRIPTION: DEXA AXIAL SKELETON BONE DENSITY 1 OR MORE SITES REASON FOR STUDY: 72 y/o year old F with given history of: Postmenopausal status. History of prior fracture and rheumatoid arthritis. Patient has taken/is taking Fosamax, vitamin-D and calcium. Box Car Checker/Model: [employer] A (S/N [id number]) CLINICAL INFORMATION: Current height: 67 inches Maximum [...] Pamela Cuenca M.D. TW: TW Report ID: [id number] Reading Location: [id number] Procedure Note Pamela Cuenca MD - 09/07/2023 EXAM DESCRIPTION: DEXA AXIAL SKELETON BONE DENSITY 1 OR MORE SITES REASON FOR STUDY: 72 y/o year old F with given history of:Postmenopausal status. History of prior fracture and rheumatoid arthritis. Patient has taken/is taking Fosamax, vitamin-D and calcium. Box Car Checker/Model: [employer] A (S/N [id number]) CLINICAL INFORMATION: Current height: 67 inches Maximum [...] Pamela Cuenca M.D. TW: TW Report ID: [id number] Reading Location: [place] [address] us Kiesha R. Swinigan PA IMG DXA PROCEDURES Final R esult * HM COLONOSCOPY (02/26/2015) us Historical Provider MD HEALTH MAINTENANCE Final Result from Last 3 Months or Most Recently Relevant to Health Maintenance Insurance [facility] Advance Directives For more information, please contact: [phone] * Full Code (Latest Code Status on File) Date Activated Date Inactivated Comments 01/06/2024 12:28 AM 01/12/2024 7:51 PM
--- OUTSIDE RECORDS SUMMARY | 2024-10-30 20:00 | XMS_ITS | Clinical Summary ---
Author Organization [facility] Address [address] [place] [address] Care Team Providers Care Therapeutic Specialist Name Role Phone Ranjan Barrett MD Primary Care Provider [phone] [facility],non-owned Affiliates and Associated Physician Practices is amultiple site organization consisting of ambulatory clinics and hospital sitesin [place], [place], [place] and [place]. This disclosure is being madepursuant to the Care Everywhere program and may not contain all information available regarding this patient. Last updated 18.[facility] Allergies No known active allergies Medications * [...] this topic Medical Devices Implanted Type Area In Home Sales Consultant Device Identifier Shelf Expiration Date Model / Serial / Lot Screw 3.5mm 12mm Ma Spne Cntrn Bone Implanted:Qty: 2 on 12/07/2019 by Sai Hubbard MD at [facility] N/A: Spine Cervical [employer] [id number] / / Screw 3.5mm 16mm Ma Drv Bdy Rome Sdl Spne Implanted:Qty: 2 on 12/07/2019 by Sai Hubbard MD at [facility] N/A: Spine Cervical [employer] [id number] / / Screw 3.5mm 14mm Ma Drv Bdy Rome Sdl Spne Implanted:Qty: 2 on 12/07/2019 by Sia Hubbard MD at [facility] N/A: Spine Cervical [employer] [id number] / / Screw 3.5mm 20mm Ma Drv Bdy Rome Sdl Spne Implanted:Qty: 2 on 12/07/2019 by Sai Hubbard MD at [facility] N/A: Spine Cervical [employer] [id number] / / Screw 4mm 20mm Ma Drv Bdy Rome Sdl Spne Implanted:Qty: 2 on 12/07/2019 by Sai Hubbard MD at [facility] N/A: Spine Cervical [employer] [id number] / / 4.0x26mm Screw Implanted:Qty: 2 on 12/07/2019 by Sai Hubbard MD at [facility] N/A: Spine Cervical [employer] [id number] / / Description:ORTHOFIX CENTURI ON Screw Set Spne Opn Tib Fx Implanted:Qty: 12 on 12/07/2019 by Sai Hubbard MD at [facility] N/A: Spine Cervical [employer] [id number] / / Rome Spnl 120mm 3.5mm Cntrn Ti Post Implanted:Qty: 2 on 12/07/2019 by Sai Hubbard MD at [facility] N/A: Spine Cervical [employer] [id number] / / Graft Bone Canc 4-9.5mm 15cc Frzdr Chp Implanted:Qty: 1 on 12/07/2019 by Sai Hubbard MD at [facility] N/A: Spine Cervical [employer] 02/17/2024 [id number] / / Description:ID:[id number] Advance Directives * Full Code (Latest Code Status on File) Date Activated Date Inactivated Comments 12/13/2019 4:58 PM 12/28/2019 5:09 PM * Full Code Date Activated Date Inactivated Comments 12/06/2019 11:50 AM 12/13/2019 4:48 PM * Full Code Date Activated Date Inactivated Comments 12/06/2019 8:53 AM 12/06/2019 8:53 AM Care Teams Therapeutic Specialist Relationship Specialty Start Date End Date Ranjan Barrett MD [address] [facility] [address] [place] [address] PCP - General 12/27/19
--- OUTSIDE RECORDS SUMMARY | 2024-10-30 20:00 | XMS_ITS | Encounter Summary ---
Author Organization [facility] Address [address] [place] [address] Phone Care Team Providers Care Cross Tie Turner Name Role Phone Vimal Florence MD Primary Care Provider [phone] Joey Blake MD Primary Care Provider [phone] Vimal Florence MD Primary Care Provider [phone] Kiesha Davis Primary Care Provider [phone] Annette Adams SURGICAL SALES REPRESENTATIVE Unavailable [phone] Vimal [place] MD Primary Care Provider [phone] Kiesha Davis Primary Care Provider [phone] Vimal Florence MD Primary Care Provider [phone] Kae Cabral RN Unavailable [phone] Jhon Barrera SURGICAL SALES REPRESENTATIVE Unavailable [phone] Encounter Details Date Type Department Care Team (Late st Contact Info) Description 09/30/2017 Orders Only [facility] ProviderRaheem MD [facility] [place] [address] Social History Tobacco Use Types Packs/Day Years Used Date Smoking Tobacco: Former Comments Unknown Sex and Gender Information Value Date Recorded Sex Assigned at Not on file Legal Sex Female 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 us Historical Provider MD WARNER US PROCEDURES Final R esult documented in this encounter Visit Diagnoses Not on filedocumented in this encounter Care Teams Cross Tie Turner Relationship Specialty Start Date End Date Vimal Florence MD PCP - General Family Medicine 12/29/18 06/07/19 Joey Blake MD PCP - General 06/08/19 12/02/19 Vimal Florence MD PCP - General Family Medicine 12/03/19 02/04/20 Kiesha Davis PA [address] [place] [address] PCP - General Internal Medicine 02/05/20 03/11/20 Vimal Florence MD PCP - General 03/12/20 03/18/20 Kiesha Davis PA [address] [place] [address] PCP - General Internal Medicine 03/19/20 02/12/21 Vimal [place] MD PCP - General Family Medicine 02/13/21 02/14/21 Annette Adams, SURGICAL SALES REPRESENTATIVE [address] [place] [address] [address] [place] [address] Lockstitch Sleeve Setter 02/05/20 02/25/20 Kae Cabral, RN [address] [place] [address] [address] [place] [address] Software Quality Assurance Specialist 03/12/24 04/11/24 Jhon Barrera LCSW [address] [place] [address] [address] [place] [address] Lockstitch Sleeve Setter 03/13/24 05/02/24 documented as of this encounter
--- OUTSIDE RECORDS SUMMARY | 2024-10-30 20:00 | XMS_ITS ---
Author Organization [facility] Care Team Providers Care Conference Organizer Name Role Phone Shane Moreira Unavailable Unavailable Allergies and adverse reactions No Known Allergies Care Team Name Role Address Phone Organization Dates Shane Moreira PCP [address] [place], [address], [place] States (Office): [facility] 12/28/2019 - 02/04/2020 Mental Status Section Date Assessment Total Score Description 02/04/2020 BIMS 15 cognitively int act CAM 0 No delirium ind icated PHQ-9 01 minimal depress ion 01/04/2020 BIMS 15 cognitively int act CAM 0 No delirium ind icated PHQ-9 00 Problems Problem # Description Date of onset Resolved Date Code CodeSystem Concern Status 1 MUSCLE WEAKNESS (GENERALIZED) 12/29/19 20 01/31/[address] completed 2 AGE-RELATED OSTEOPOROSIS WITHOUT CURRENT PATHOLOGICAL FRACTURE 12/28/[address] active 3 ESSENTIAL (PRIMARY) HYPERTENSION 12/28/[address] active 4 HEREDITARY AND IDIOPATHIC NEUROPATHY, UNSPECIFIED 12/28/[address] active 5 NEUROGENIC BOWEL, NOT ELSEWHERE CLASSIFIED 12/28/[address] active 6 NEUROMUSCULAR DYSFUNCTION OF BLADDER, UNSPECIFIED 12/28/[address] active 7 OTHER SPONDYLOSIS WITH MYELOPATHY, CERVICAL REGION 12/28/[address] active 8 PAIN, UNSPECIFIED 12/28/[address] active 9 PSORIATIC ARTHRITIS MUTILANS 12/28/[address] active 10 SPINAL STENOSIS, LUMBAR REGION WITHOUT NEUROGENIC CLAUDICATION 12/28/[address] active 11 UNSPECIFIED DEMENTIA, UNSPECIFIED SEVERITY, WITHOUT BEHAVIORAL DISTURBANCE, PSYCHOTIC DISTURBANCE, MOOD DISTURBANCE, AND ANXIETY 12/28/[address] active 12 UNSPECIFIED OPEN WOUND OF UNSPECIFIED PART OF NECK, SEQUELA 12/28/[address] active Reason for Referral No Reasons for Referral Entered Social History Social History Observation Description Start Date End Date Code Code System Current Smoking Status Tobacco smoking consumption unknown 697431244 SNOMED CT Sex Assigned At Female 1950 96045-8 [facility] [place] [facility] Vital Signs Code Code System Vitals Name Values and Units Timing Information 90327-3 [facility] [place] [facility] Weight Hlveb=310.0 Units=Lbs 02/2020 8302-2 [facility] [place] Height Value=66.0 Units=Inches 0 12/31/2019
--- OUTSIDE RECORDS SUMMARY | 2024-10-30 20:00 | XMS_ITS | Clinical Summary ---
Author Organization [facility] Address [address] [place] [address] Care Team Providers Care Chief Order Dispatcher Name Role Phone Unavailable Primary Care Provider [...] diabetes. Assessment & Plan (08/27/2021 8:40 PM WORKS MANAGER): Pre-diabetes/hyperglycemia is a precursor to Dm. [...] calcium Assessment & Plan (05/29/2023 9:54 PM WORKS MANAGER): Continue Fosamax. She states she has [...] exercise Assessment & Plan (08/27/2021 8:47 PM WORKS MANAGER): Continue Fosamax calcium vitamin-D and exercise. [...] able Assessment & Plan (08/27/2021 8:39 PM WORKS MANAGER): Continue fiber exercise and water. States [...] provided Assessment & Plan (08/31/2020 6:05 PM WORKS MANAGER): Mammogram order provided Assessment & Plan (02/12/2020 9:43 PM CDT): Mammogram order provided Rheumatoid arthritis 11/11/2017 Assessment & Plan (02/01/2024 7:01 AM CDT): History of psoriatic arthritis rheumatoid arthritis. Patient has been following with arcade technician but has not seen 1 in a few years as patient would not keep appointments. I would be glad to make the referral back to specialist. She would need assistance with transportation. At this point she was not actively complaining of symptoms so will continue to monitor Assessment & Plan (05/29/2023 9:52 PM WORKS MANAGER): I have made referrals multiple times to the arcade technician. Patient does not seem to be able to make it to the arcade technician on her own. Memory is probably the cause. I will reach out to the daughter myself to see if we can get some assistance in her care. Assessment & Plan (04/30/2023 2:09 PM CDT): Patient has not seen a arcade technician in quite a few years. I have [...] longer feels as though she can get [place] for her care at [facility]. Encouraged follow-up in [place] with [facility]. Referral has been made. She has the contact information to reach back out to them so she can reestablish and determine appropriate treatment for her symptoms. Assessment & Plan (10/13/2022 11:07 PM CDT): Patient has history of psoriatic arthritis and rheumatoid arthritis. Had been following with arcade technician in [place] but it is very difficult for her to get to those visits now. She would like to see a arcade technician closer to home. She prefers [facility]. Will make the referral to [facility] arcade technician and await recommendations. Assessment & Plan (05/12/2022 11:07 AM CDT): Continue per Rheumatology. Assessment & Plan (02/15/2022 10:34 AM CDT): Continue per Rheumatology Dr. Evans. She is having trouble getting all her medications as she needs an eye exam to continue with the Plaquenil. Will try to work with social media analyst to help make all of this happen so that she can get the care she needs. Also needs assistance with transportation to keep these appointments. Assessment & Plan (08/27/2021 8:45 PM WORKS MANAGER): Continue per Rheumatology Assessment & Plan (02/15/2021 10:26 AM CDT): Continue per Rheum Assessment & Plan (08/31/2020 6:05 PM WORKS MANAGER): Per Rheumatology Assessment & Plan (03/22/2020 [...] 12/07/2016 Assessment & Plan (08/31/2020 6:03 PM WORKS MANAGER): Continue per spine surgeon prn Assessment & Plan (02/12/2020 9:32 PM CDT): S/p surgical repair. Continue per Ortho Spine. Wear c-collar as instructed. Avoid pillow as instructed. Keep f.u in approx 6 weeks as instructed. Hypertension 12/07/2016 Assessment & Plan (02/01/2024 6:58 AM CDT): Currently stable without medication Assessment & Plan (05/29/2023 9:52 PM WORKS MANAGER): Bp is stable/in acceptable range for [...] medication Assessment & Plan (08/27/2021 8:38 PM WORKS MANAGER): Bp is stable/in acceptable range for any co-morbidities. Encouraged to limit sodium intake and exercise for weight control. Currently stable without medication Assessment & Plan (02/15/2021 10:25 AM CDT): Bp is stable/in acceptable range for any co-morbidities. Encouraged to limit sodium intake and exercise for weight control. Currently controlled without medication Assessment & Plan (08/31/2020 6:04 PM WORKS MANAGER): Bp is stable/in acceptable range for [...] 09/16/2016 Assessment & Plan (08/27/2021 8:38 PM WORKS MANAGER): Patient is on Plaquenil. Her arcade technician is willing medicine until she gets her eye exam done. Strongly encouraged her to follow through with this. Psoriatic arthritis 09/16/2016 Assessment & Plan (02/01/2024 7:01 AM CDT): History of psoriatic arthritis rheumatoid arthritis. Patient has been following with arcade technician but has not seen 1 in a few years as patient would not keep appointments. I would be glad to make the referral back to specialist. She would need assistance with transportation. At this point she was not actively complaining of symptoms so will continue to monitor Assessment & Plan (05/29/2023 9:52 PM WORKS MANAGER): I have made referrals multiple times to the arcade technician. Patient does not seem to be able to make it to the arcade technician on her own. Memory is probably the cause. I will reach out to the daughter myself to see if we can get some assistance in her care. Assessment & Plan (04/30/2023 2:09 PM CDT): Patient has not seen a arcade technician in quite a few years. I have [...] longer feels as though she can get [place] for her care at [facility]. Encouraged follow-up in [place] with [facility]. Referral has been made. She has the contact information to reach back out to them so she can reestablish and determine appropriate treatment for her symptoms. Assessment & Plan (10/13/2022 11:07 PM CDT): Patient has history of psoriatic arthritis and rheumatoid arthritis. Had been following with arcade technician in [place] but it is very difficult for her to get to those visits now. She would like to see a arcade technician closer to home. She prefers [place] area. Will make the referral to [facility] arcade technician and await recommendations. Assessment & Plan (02/15/2022 10:34 AM CDT): Continue per Rheumatology Dr. Evans. She is having trouble getting all her medications as she needs an eye exam to continue with the Plaquenil. Will try to work with social media analyst to help make all of this happen so that she can get the care she needs. Also needs assistance with transportation to keep these appointments. Assessment & Plan (08/27/2021 8:38 PM WORKS MANAGER): Continue per Rheumatology. Assessment & Plan (02/15/2021 10:25 AM CDT): Continue per Rheum Assessment & Plan (08/31/2020 6:05 PM WORKS MANAGER): Per Rheumatology Assessment & Plan (03/22/2020 12:56 PM CDT): Continue per Rheum Assessment & Plan (02/12/2020 9:43 PM CDT): Per Picture Engraver Muscle weakness (generalized) 06/15/2016 Assessment & Plan [...] provided. Assessment & Plan (08/31/2020 6:05 PM WORKS MANAGER): Encouraged activity as tolerated. Discussed PT [...] 02/01/2024 Assessment & Plan (05/29/2023 9:53 PM WORKS MANAGER): Patient is showing significant memory changes. [...] been prescribed methotrexate and Plaquenil by her arcade technician. Medicare annual wellness visit, subsequent 02/13/2022 05/12/2022 Assessment & Plan (02/15/2022 10:36 AM CDT): Encouraged healthy lifestyle, good nutrition and exercise. Encouraged Calcium and Vitamin D and weight bearing exercise for bone health. Reviewed immunizations. Reviewed age appropirate screenings. Medicare Wellness Documentation is completed within the chart Annual physical exam 08/27/2021 022 Assessment & Plan (08/27/2021 8:39 PM WORKS MANAGER): Encouraged healthy lifestyle, good nutrition and exercise. Encouraged Calcium and Vitamin D and weight bearing exercise for bone health. Reviewed immunizations Reviewed age appropirate screenings. Encouraged her screenings. Reviewed with her that essence can help with the rights that she can call the number on the back of the card. Fatigue 08/27/2021 02/13/2022 Assessment & Plan (08/27/2021 8:40 PM WORKS MANAGER): Probably multifactorial. Check labs and followup to re-evaluate BMI 27.0-27.9,adult 08/25/2021 10/14/19 23 Assessment & Plan (05/12/2022 11:14 AM CDT): Weight/BMI is in healthy range. Continue healthy lifestyle to maintain. Assessment & Plan (02/15/2022 10:35 AM CDT): Weight/BMI is in healthy range. Continue healthy lifestyle to maintain. Assessment & Plan (08/25/2021 10:50 AM WORKS MANAGER): Weight/BMI is in healthy range. Continue [...] understanding. Assessment & Plan (08/31/2020 6:06 PM WORKS MANAGER): Reviewed importance of screening. Pt voiced understanding. BMI 20.0-20.9, adult 08/11/2020 021 Assessment & Plan (08/11/2020 4:12 PM WORKS MANAGER): Weight/BMI is in healthy range. Continue healthy lifestyle to maintain. Annual physical exam 03/21/2020 021 Assessment & Plan (08/31/2020 6:05 PM WORKS MANAGER): Encouraged healthy lifestyle, good nutrition and [...] 022 Assessment & Plan (08/31/2020 6:04 PM WORKS MANAGER): Patient states better since seeing Dr. [...] lumbar spine was done at [facility] but it is not available in Care [...] 09/20/2018 Surgical History Surgery Date Site/Laterality Comments IN ARTHRD ANT INTERBODY MIN DSC CRV BELOW [...] story of autoimmune disorder - (Added by [employer] Conv) Osteoarthritis Daughter 1 Family histor y of osteoarthritis - (Added by [employer] Conv) Fibromyalgia Daughter 2 Family history of fibromyalgia - (Added by [employer] Conv) Arthritis Daughter 3 Family history of arthritis - (Added by [employer] Conv) Parkinsonism Father Family history of Parkinson's disease - (Added by TW Conv) Breast cancer Mother Family history of malignant neoplasm of breast - (Added by TW Conv) Stroke Sister 1 Family history of cerebrovascular accident (CVA) - (Added by [employer] Conv) Osteoarthritis Sister 2 Family histor y of osteoarthritis - (Added by [employer] Conv) Relation Name Status Comments Child Daughter 1 Daughter 2 Daughter 3 Father Mother Sister 1 Sister 2 Social History Tobacco Use Types Packs/Day Years Used Date Smoking Tobacco: Former Smokeless Tobacco: Never Tobacco Cessation:Counseling Given: Not Answered Comments:quite 2005 Alcohol Use Standard Drinks/Week Comments Not Currently 0 (1 standard drink = 0.6 oz pur e alcohol) [facility] Utilities Answer Date Recorded In the past 12 months has e [employer], gas, oil, or water company threatened to [...] often do you attend chur ch or muslim services? Never 03/13/2024 Do you belong to any clubs o r organizations such as yarsani groups, unions, fraternal or athletic groups, or [...] any time in the past 12 m [facility], were you homeless or living in a senior living (including now)? No 03/13/2024 Personal Safety Answer Date Recorded Have you ever been in or are you currently in a harmful physical or emotional relationship or is someone making you feel afraid or unsafe? Denies 01/05/2024 Comments No Sex and Gender Information Value Date Recorded Sex Assigned at Not on file Legal Sex Female 7:21 AM WORKS MANAGER Gender Identity Not on file Sexual [...] Read Routine (OP Routine) 09/07/2023 8:37 AM WORKS MANAGER Breast cancer screening by mammogram DEXA AXIAL SKELETON BONE DENSITY 1 OR MORE SITES Schedule Routine, Read Routine (OP Routine) 09/07/2023 8:37 AM WORKS MANAGER Menopause HM COLONOSCOPY Routine 02/26/2015 from Last 3 Months or Most Recently Relevant to Health Maintenance Results * Screening Mammogram Bilateral W Owen (09/07/2023 8:37 AM WORKS MANAGER) Anatomical Region Laterality Modality Breast Bilateral Mammography Impressions 09/07/2023 8:49 AM WORKS MANAGER BI-RADS ATLAS category (overall): 1 - Negative There is no mammographic evidence of malignancy. A 1 year screening mammogram is recommended. The patient has been or will be contacted. We recommend annual screening mammography for women at average risk of breast cancer beginning at age 40, based on guidelines of the [place] [employer] (ACR Practice Parameter for the Performance of Screening and Diagnostic Mammography) and [place] [employer]. For women with and elevated risk of breast cancer, please refer to the ACR Practice Parameter for specific screening recommendations. The patient will be entered into a reminder system with a target due date of 1 year for her next screening exam. Narrative 09/07/2023 8:49 AM WORKS MANAGER Screening Mammogram Bilateral W Owen: 09/07/23 The [...] 1 or 2 Site (09/07/2023 8:37 AM WORKS MANAGER) Anatomical Region Laterality Modality Body N/A Mammography 09/07/2023 9:20 AM WORKS MANAGER Narrative 09/07/2023 9:22 AM WORKS MANAGER EXAM DESCRIPTION: DEXA AXIAL SKELETON BONE DENSITY 1 OR MORE SITES REASON FOR STUDY: 72 y/o year old F with given history of: Postmenopausal status. History of prior fracture and rheumatoid arthritis. Patient has taken/is taking Fosamax, vitamin-D and calcium. Inclusion Specialist/Model: [employer] A (S/N [id number]) CLINICAL INFORMATION: Current height: 67 inches Maximum [...] Pamela Cuenca M.D. TW: TW Report ID: [id number] Reading Location: [id number] Procedure Note Pamela Cuenca MD - 09/07/2023 EXAM DESCRIPTION: DEXA AXIAL SKELETON BONE DENSITY 1 OR MORE SITES REASON FOR STUDY: 72 y/o year old F with given history of:Postmenopausal status. History of prior fracture and rheumatoid arthritis. Patient has taken/is taking Fosamax, vitamin-D and calcium. Inclusion Specialist/Model: [employer] A (S/N [id number]) CLINICAL INFORMATION: Current height: 67 inches Maximum [...] Pamela Cuenca M.D. TW: TW Report ID: [id number] Reading Location: [place] [address] Kiesha MORRIS IMG DXA PROCEDURES Final R esult * HM COLONOSCOPY (02/26/2015) Historical Provider HEALTH MAINTENANCE Final Result from Last 3 Months or Most Recently Relevant to Health Maintenance Insurance [facility] Advance Directives For more information, please contact: [phone] * Full Code (Latest Code Status on File) Date Activated Date Inactivated Comments 01/06/2024 12:28 AM 01/12/2024 7:51 PM
--- OUTSIDE RECORDS SUMMARY | 2024-10-30 20:01 | XMS_ITS | Clinical Summary ---
Author Organization [facility] Address [address] [place] [address] Care Team Providers Care Certified Energy Manager Name Role Phone Unavailable Primary Care Provider [...]
--- OUTSIDE RECORDS SUMMARY | 2024-10-30 20:01 | XMS_ITS | Clinical Summary ---
Author Organization [facility] Address [address] [place] [address] Care Team Providers Care Perfusionist Name Role Phone Briana Patel MD Primary Care Provider + Allergies No known active allergies Medications sulfaSALAzine (AZULFIDINE) 500 MG tabletIndications :Psoriatic arthritis ([facility]) Take 0.5 tablets (250 mg total) by mouth 2 (two) times daily. 90 tablet 5 01/14/20 25 Active hydroCHLOROthiazi de (MICROZIDE) 12.5 MG capsuleIndication s:Primary hypertension Take 1 capsule (12.5 mg total) by mouth every morning. 90 capsule 3 5 10/16/19 26 Active Active Problems Problem Noted Date Diagnosed Date Moderate protein-calorie malnutrition ([facility]) 01/06/2024 Parkinsonism ([facility]) 01/06/2024 Overview (10/15/2024): Family is not certain [...] 02/15/2021 Slow transit constipation 02/15/2021 Rheumatoid arthritis ([facility]) 8 Overview (10/15/2024): She was previously on [...] Would like to resume sulfasalazine while awaiting supervisor beater room referral. Recommend Tylenol otherwise for pain. Await [...] care for her. Patient would benefit from long-term facility for medication management. Family is working towards this. 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 Gender Identity Not on file Sexual Orientation [...] Description 11/19/2024 2:20 PM CDT Office Visit [facility] - [place] [address] [place] [address] Briana Patel MD [address] [place] [address] Health Maintenance Due Date Last Done Comments [...] (General) Completed 09/07/2023, 09/07/2023, 11/17/2018 PHQ-2 (Physician Emigrant) Completed 10/15/2024 Meningococcal B Vaccine Aged Out [...] - 3.740 uIU/ML 10/16/2024 11:51 AM CDT [facility] 10/15/2024 1:09 PM CDT Briana Patel MD LABORATORY Final Re sult [facility] [address] [place] [address], [place] [phone] * VITAMIN B-12 (10/15/2024 1:09 PM CDT) VITAMIN B12 S/P/B 208 193 - 986 PG/ML 10/16/2024 11:51 AM CDT [facility] 10/15/2024 1:09 PM CDT Briana Patel MD LABORATORY Final Re sult [facility] [address] [place] [address], [place] [phone] * (ABNORMAL) COMPREHENSIVE METABOLIC PANEL (10/15/2024 1:09 PM CDT) [facility] SODIUM S/P/B 142 136 - 145 MMOL/L 10/16/2024 11:51 AM CDT [facility] POTASSIUM S/P/B 3.8 3.5 - 5.1 MMOL/L 10/16/2024 11:51 AM CDT [facility] CHLORIDE S/P/B 107 98 - 107 MMOL/L 10/16/2024 11:51 AM CDT [facility] CO2 31.9 21 - 32 MMOL/L 10/16/2024 11:51 AM T [facility] GLUCOSE 97 70 - 99 MG/DL 10/16/2024 11:51 AM CDT [facility] BUN 15 7 - 18 MG/DL 10/16/2024 11:51 AM CDT [facility] CREATININE S/P/B 0.75 0.55 - 1.02 MG/DL 10/16/2024 11:51 AM T [facility] CALCIUM S/P/B 9.0 8.4 - 10.5 MG/DL 10/16/2024 11:51 AM CDT [facility] BILIRUBIN TOTAL S/P/B 0.7 0.2 - 1.0 MG/DL 10/16/2024 11:51 AM T [facility] ALKALINE PHOSPHATASE S/P/B 53(L) 55 - 142 U/L 10/16/2024 11:51 AM CDT [facility] AST 27 15 - 37 U/L 10/16/2024 11:51 AM CDT [facility] ALT 24 14 - 59 U/L 10/16/2024 11:51 AM CDT [facility] TOTAL PROTEIN S/P/B 6.4 6.4 - 8.2 G/DL 10/16/2024 11:51 AM CDT [facility] ALBUMIN S/P/B 3.8 3.4 - 5.0 G/DL 10/16/2024 11:51 AM CDT [facility] ANION GAP 3.1(L) 5 - 15 MMOL/L 10/16/2024 11:51 AM CDT [facility] Comment:REFERENCE RANGE NOT ESTABLISHED OSMOLALITY (CALC) 295 MOSM/KG 025 11:51 AM CDT [facility] Comment:REFERENCE RANGE NOT ESTABLISHED GFR ESTIMATE 85(L) >90 ML/MIN/1. 73 M2 10/16/2024 11:51 AM CDT [facility] GFR NOTES GFR REFERENCE S: 10/16/2024 11:51 AM CDT [facility] Comment: THE ESTIMATED GFR IS CALCULATED USING [...] Briana Patel MD LABORATORY Final Re sult [facility] [address] [place] [address], * (ABNORMAL) CBC W/DIFF AUTOMATED (10/15/2024 1:09 PM CDT) WBC 4.00 4.00 - 10.80 x10'3/uL 10/15/2024 7:29 PM CDT [facility] RBC 4.16 4.10 - 5.40 x10'6/uL 10/15/2024 7:29 PM CDT [facility] HGB 13.1 12.0 - 16.0 G/DL 10/15/2024 7:29 PM CDT [facility] HCT 40.1 36.0 - 47.0 % 10/15/2024 7:29 PM CDT [facility] MCV 96.4 78.0 - 100.0 FL 10/15/2024 7:29 PM CDT [facility] MCH 31.5(H) 27.0 - 31.0 PG 10/15/2024 7:29 PM CDT [facility] MCHC 32.7(L) 33.0 - 36.0 G/DL 10/15/2024 7:29 PM CDT [facility] RDW 13.0 11.5 - 14.5 % 10/15/2024 7:29 PM CDT [facility] PLT 175 150 - 350 x10'3/uL 10/15/2024 7:29 PM CDT [facility] MPV 10.9(H) 7.4 - 10.4 FL 10/15/2024 7:29 PM CDT [facility] DIFFERENTIAL TYPE AUTOMATED DIFFERENTIAL 10/15/2024 7:29 PM CDT [facility] NEUTROPHILS % 61.4 % 10/15/2024 7:29 PM CDT [facility] LYMPHOCYTES % 26.5 % 10/15/2024 7:29 PM CDT [facility] MONOCYTES % 10.0 % 10/15/2024 7:29 PM CDT [facility] EOSINOPHILS % 1.5 % 10/15/2024 7:29 PM CDT [facility] BASOPHILS % 0.3 % 10/15/2024 7:29 PM CDT [facility] IMMATURE GRANS % 0.3 % 10/15/2024 7:29 PM CDT [facility] ABS. NEUTROPHILS 2.46 1.60 - 8.30 x10'3/uL 10/15/2024 7:29 PM CDT [facility] ABS. LYMPHOCYTES 1.06 0.80 - 4.70 x10'3/uL 10/15/2024 7:29 PM CDT [facility] ABS. MONOCYTES 0.40 0.00 - 1.50 x10'3/uL 10/15/2024 7:29 PM CDT [facility] ABS. EOSINOPHILS 0.06 0.00 - 0.40 x10'3/uL 10/15/2024 7:29 PM CDT [facility] ABS. BASOPHILS 0.01 0.00 - 0.20 x10'3/uL 10/15/2024 7:29 PM CDT [facility] ABS. 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 Care Agent Care Teams Perfusionist Relationship Specialty Start Date End Date Briana Patel MD [address] [place] [address] PCP - General FAMILY PRACTICE 09/28/24
[2024-10-30 20:03] LABS: Add Urine Microscopic? NO; Appearance Urine Clear (Clear); Bilirubin Urine Negative (Negative); Blood Urine Negative (Negative); Color Urine Yellow (Yellow); Glucose Urine UA Negative (Negative); Ketones Urine Negative (Negative); Leukocyte Esterase Ur Negative LEU/UL (Negative); Nitrate Urine Negative (Negative); Protein Urine Negative (Negative); Specific Grav Ur 1.014 (1.001-1.035); Urobilinogen Urine 0.2 mg/dL (<2.0)
--- NOTE | 2024-10-30 20:15 | PC.NURSE ---
Pt. took all of her clothes off, including her depend and threw them on the floor. Pt. then urinated on the bed. Family at bedside states this is the worse she's ever been. Dr. Frey notified and to bedside. Depend applied. Pt. and bed cleaned of urine. Linen changed.
[2024-10-30] MEDS: OLANZapine 10 MG INJ VIAL IM (20:20)
[2024-10-30] MEDS: WATER, STERILE FOR INJECTION 10 ML VIAL XX (20:20)
[2024-10-30] MEDS: ACETAMINOPHEN 500 MG TABLET 1000 MG PO (20:24)
[2024-10-30 20:40] LABS: Amphetamine Screen Urine Negative (Negative); Barbiturate Screen Urine Negative (Negative); Benzodiazepines Screen Urine Negative (Negative); Cannabinoid Screen Urine Negative (Negative); Cocaine Screen Urine Negative (Negative); Methadone Screen Urine Negative (Negative); Opiate Screen Urine Negative (Negative); Phencyclidine Screen Urine Negative (Negative)
[2024-10-30 21:59] VITALS: BP 143/83; PULSE 89; RESP 19; O2SAT 99
[2024-10-30 22:04] LABS: Basophils Percent Auto 0.3 % (0.2-1.2); Eosinophils Absolute Auto 0.1 K/mm3 (0-0.3); Eosinophils Percent Auto 1.5 % (0-4.4); Hematocrit 38.4 % (37.0-47.0); Hemoglobin 12.5 g/dL (12.0-15.0); Immature Granulocyte Absolute 0.04 K/mm3 (0.00-0.031); Immature Granulocyte Percent A 0.7 % (0-0.5); Immature Platelet Fraction Pct 2.3 % (0.9-11.2); Lymphocytes Absolute Auto 0.74 K/mm3 (0.9-3.2); Lymphocytes Percent Auto 12.2 % (18.3-44.2); Mean Corpuscular HGB Conc 32.6 g/dl (32-36); Mean Corpuscular Hemoglobin 31.4 pg (26-34); Mean Corpuscular Volume 96.5 fl (80-100); Mean Platelet Volume 9.8 fl (7.4-10.4); Monocytes Absolute Auto 0.6 K/mm3 (0.1-0.6); Monocytes Percent Auto 9.6 % (2.6-8.5); Neutrophils Absolute Auto 4.6 K/mm3 (1.3-6.7); Neutrophils Percent Auto 75.7 % (45.5-73.1); Platelet Count Result 160 k/mm3 (150-375); Red Blood Count 3.98 M/mm3 (4.2-5.4); Red Cell Distribution Width 13.4 % (11.5-14.5); White Blood Count 6.1 K/mm3 (4.5-10.0)
[2024-10-30 22:10] LABS: Acetaminophen < 10 ug/mL (10-30); Ammonia < 9 umol/L (9-30); Ethanol < 10 mg/dL (<10); Salicylate < 1.0 mg/dL (2-20)
[2024-10-30 22:12] LABS: Lactic Acid Reflex 0.8 mmol/L (0.7-2.0)
[2024-10-30 22:13] LABS: Alanine Aminotransferase 29 U/L (6-35); Albumin Level 3.8 g/dL (3.5-5.1); Alkaline Phosphatase 58 U/L (38-126); Anion Gap 3 mmol/L (4-12); Aspartate Amino Transferase 36 U/L (14-36); Bilirubin,Total 0.6 mg/dL (0.2-1.3); Blood Urea Nitrogen 13 mg/dL (7-17); Calcium 9.1 mg/dL (8.4-10.2); Carbon Dioxide 32 mmol/L (22-30); Chloride 104 mmol/L (98-107); Creatine Kinase 400 U/L (30-135); Estimated CRCL calculation 54 ml/min; Estimated Glomerular Filt Rate > 60; Glucose 101 mg/dL (65-110); Potassium 3.7 mmol/L (3.4-5.0); Sodium 139 mmol/L (137-145)
[2024-10-31 00:13] LABS: Glucose Point of Care 86 mg/dl (65-105)
[2024-10-31 00:51] VITALS: BP 149/80; PULSE 84; RESP 17; O2SAT 99
[2024-10-31 01:12] LABS: Influenza A QL RT-PCR Negative (Negative); Influenza B QL RT-PCR Negative (Negative); SARS-CoV-2 RNA PCR Negative (Negative)
[2024-10-31 01:15] VITALS: BP 130/76; PULSE 73; RESP 18; TEMP 36.2; O2SAT 98
[2024-10-31 01:19] VITALS: BMI 24.2
--- NOTE | 2024-10-31 01:28 | PC.NURSE ---
Family states Pt has not taken any medications for at least 3 months maybe longer.
--- NOTE | 2024-10-31 02:01 | ADMGEN ---
This patient, Whit Dia, was admitted to 3 [facility] Surg Room 305-01. Patient/family oriented to hospital policies and general routines including ID bracelet, bed and alarms, visiting hours, pain management, procedures, bathroom and other care routines, personal items, smoking policy, room service/diet, and visiting hours. Information on how to activate the Rapid Response Team has been discussed. Patient/Family are encouraged to report perceived risks to care and to ask questions if they do not understand what they are told or what they should do.
[2024-10-31 04:45] VITALS: BP 124/69; PULSE 71; RESP 20; TEMP 36.1; O2SAT 97
--- NOTE | 2024-10-31 05:26 | P.HP_ITS ---
H&P: HPI History of Present Illness Date/Time: 10/31/24 05:26 Chief Complaint: 1. Fall 2. Confusion Narrative: Whit Dia is a 73-year-old female with a medical history significant for dyslipidemia, dementia, depression, insomnia an unstable gait At baseline she resides alone, ambulates with an assist device and has a history of recurrent falls; with family members who performed a wellness check on her daily, she was unreachable a few hours prior to evaluation via the ED and was found to have fallen down on was on the floor for prolonged/unknown periods. She is unable to give information about the circumstances surrounding her fall but states that when she stood up from a wheelchair and attempted to perform an activity, however wheelchair rolled away and she was unable to reach it and therefore fell to the ground. She is unable to give information about head traumas, but denies bleeding sites and coughs or LOC. She does not smokes/chew tobacco, drink alcohol or consume recreation/illicit drugs. Work-up findings: Vital signs unremarkable At bedside is confused and unable to give a coherent story; bilateral leg swelling UDS: Unremarkable; Ethyl alcohol <10 Influenza a/B, RSV, COVID-19: Negative UA: Unremarkable CK 400; ammonia < 9 Na 139; K 3.7; Cl 104; CO2 32; AG 3; BUN 13; CR 0.77; GFR [address] head: Unremarkable CT Cervical spine: Unremarkable XR Hip/Pelvis: Degenerative disease; no acute abnormality CTAP: Significant bladder distention. No acute findings within the abdomen or pelvis to account for patient's left lower quadrant pain Whit Dia will be admitted, evaluated, and managed for falls, unstable gait, rhabdomyolysis Review of Systems Review of Systems: ROS unobtainable: Yes unobtainable due to medical condition (Dementia; Poor historian) [facility] Past Medical History Medical History Dementia Psoriatic arthritis Surgical History Surgical History History of cervical spinal arthrodesis History of cholecystectomy History of hysterectomy Family History Family History Sibling Asthma Father Dementia Mother Breast cancer Social History Social History Smoking status: Never smoker Second hand tobacco smoke exposure: No Alcohol intake: never Substance use: never Substance use type: does not use Do You Feel Safe in your Home?: Yes Lack of Transportation: No Lack of Food: Never True Current Housing: I Have Housing Concerned About Future Housing: No Difficulty Paying Gas/Electric Bills: No Difficulty Paying for Meds: No Currently Unemployed: No Education: Grade School Difficulty w/ Childcare or Family Care: No Gender identity (if verbalized by the patient): Female Spiritual care concerns: No Meds Home Medications and Allergies Home Medications ?Medication ?Instructions ?Recorded ?Confirmed ?Type sulfasalazine 500 mg tablet 0.5 g PO BID 12/05/19 04/27/24 History Aspirin Low-Strength 81 mg PO DAILY 02/03/24 04/27/24 History alendronate 70 mg tablet 70 mg PO WEEKLY 02/03/24 04/27/24 History atorvastatin 10 mg tablet 10 mg PO DAILY 02/03/24 04/27/24 History cholecalciferol (vitamin D3) 25 25 mcg PO DAILY 02/03/24 04/27/24 History mcg (1,000 unit) tablet donepezil 5 mg tablet 5 mg PO DAILY 02/03/24 04/27/24 History duloxetine 20 mg capsule,delayed 20 mg PO DAILY 02/03/24 04/27/24 History release hydrocortisone 2.5 % lotion 2.5 applic topical BID 02/03/24 04/27/24 History pyridoxine (vitamin B6) 100 mg 100 mg PO DAILY 02/03/24 04/27/24 History tablet quetiapine 25 mg tablet 25 mg PO HS 02/03/24 04/27/24 History trazodone 50 mg tablet 50 mg PO HS 02/03/24 04/27/24 History sulfamethoxazole 800 1 tab PO Q12HR #8 tabs 02/06/24 04/27/24 Rx mg-trimethoprim 160 mg tablet lidocaine 5 % topical patch 1 patch topical DAILY #30 ea 03/02/24 04/27/24 Rx Allergies Allergy/AdvReac Type Severity Reaction Status Date / Time No Known Allergies Allergy Unverified 04/27/24 02:21 Vital Signs Vital Signs - 24 hr 10/30/24 16:47 10/30/24 21:59 10/31/24 00:51 Temperature 98.0 F Pulse Rate 87 89 84 Respiratory Rate 16 19 17 Blood Pressure 156/87 H 143/83 H 149/80 H Pulse Oximetry 100 99 99 Oxygen Delivery Room Air 10/31/24 01:15 10/31/24 04:45 Temperature 97.1 F L 97 F L Pulse Rate 73 71 Respiratory Rate 18 20 Blood Pressure 130/76 124/69 Pulse Oximetry 98 97 Oxygen Delivery Exam Const: General: no acute distress HENMT: Face/Nose/Sinus: Normal nares present Mouth: Yes moist mucous membranes Eyes: Pupils: Equal, round and reactive pupils present EOM: EOMs intact bilaterally Neck: Neck: supple Resp: Auscultation: clear to auscultation bilaterally Cardio: Rate: regular rate Rhythm: regular rhythm Skin: General skin exam: normal color Neuro: General: No gait normal Motor exam (neuro): 5/5 motor strength present throughout Extrem: General: pedal edema bilaterally Psych: Mental Status: mental status grossly abnormal H&P: Results Labs Labs: Short CBC 10/30/24 Range/Units 21:55 WBC 6.1 (4.5-10.0) K/mm3 Hgb 12.5 (12.0-15.0) g/dL Hct 38.4 (37.0-47.0) % Plt Count 160 (150-375) k/mm3 BMP 10/30/24 21:55 Sodium 139 Potassium 3.7 Chloride 104 Carbon Dioxide 32 H BUN 13 Creatinine 0.77 Glucose 101 Calcium 9.1 Cardiac Enzymes 10/30/24 Range/Units 21:55 Total Creatine Kinase 400 H (30-135) U/L Liver Function 10/30/24 Range/Units 21:55 Total Bilirubin 0.6 (0.2-1.3) mg/dL AST 36 (14-36) U/L ALT 29 (6-35) U/L Alkaline Phosphatase 58 (38-126) U/L Albumin 3.8 (3.5-5.1) g/dL Urine 10/30/24 Range/Units 19:04 Urine Color Yellow (Yellow) Urine Appearance Clear (Clear) Urine pH 7.0 (5.0-9.0) Ur Specific [place] 1.014 (1.001-1.035) Urine Protein Negative (Negative) mg/dL Urine Glucose (UA) Negative (Negative) mg/dL Assessment and Plan Assessment and plan (1) UTI (urinary tract infection): Code(s): N39.0 - Urinary tract infection, site not specified Status: Acute (2) Fall at home: Code(s): W19.XXXA - Unspecified fall, initial encounter; Y92.009 - Unspecified place in unspecified non-institutional (private) residence as the place of occurrence of the external cause Status: Acute Plan Acute and principal conditions 1. Fall 2. Elevated CK. probably 2/2 prolonged immobilization 3. Unstable gait 4. Bilateral leg swelling Rx: A. PT/OT eval and Rx B. Falls and safety precautions C. Ceftriaxone; Urine cultures D. BNP, Troponin. LUÍS if elevated Chronic and stable conditions 1. Dyslipidemia. On atorvastatin 2. Dementia w/Behavioral disturbance 3. Insomnia. 4. Osteoporosis 5. Recurrent Depression Per family, she is not compliant with her meds due to dementia; attempts are being made to put her in an ECF Miscellaneous care 1. Code status. Full 2. Nutrition. heart healthy 3. VTE prophylaxis. Quality VTE Prophylaxis VTE prophylaxis: mechanical ordered and pharmacologic ordered Hospitalist [facility] Advance Care Plan I have confirmed that the patient's Advanced Care Plan is present, code status is documented, or surrogate decision maker is listed in patient medical record.: Yes Medication Reconciliation I have utilized all available resources to obtain, update and review the patients current medications (includes all prescriptions, OTC, herbals, cannabis, and nutritional supplements).: Yes The patient is not eligible for med reconciliation; the patient is in a emergent medical situation where delaying treatment would jeopardize the patients health.: Yes
[2024-10-31] MEDS: SODIUM CHLORIDE 0.9% IV 1,000 ML 100 ML IV CONT (05:57)
[2024-10-31 06:42] LABS: NT Pro B Type Natriuretic Pept 356 pg/mL (19.9-100)
[2024-10-31 06:44] LABS: Troponin I < 0.012 ng/mL (0.000-0.034)
[2024-10-31 08:48] LABS: Magnesium 1.9 mg/dL (1.6-2.3)
[2024-10-31] MEDS: HEPARIN SODIUM 5,000 UNITS/ML VIAL 5000 UNITS SUB-Q ×2 (10:30→20:42)
--- NOTE | 2024-10-31 10:36 | P.PNIM_ITS ---
Progress Note: A&P Assessment and Plan (1) UTI (urinary tract infection): Code(s): N39.0 - Urinary tract infection, site not specified Status: Acute Assessment and Plan: * UA- normal. (2) Fall at home: Code(s): W19.XXXA - Unspecified fall, initial encounter; Y92.009 - Unspecified place in unspecified non-institutional (private) residence as the place of occurrence of the external cause Status: Acute Assessment and Plan: * PT/OT. * CK improving from 400>308. * Vitamin D level 92.4. * TSH pending. * B12 level 192. (3) B12 deficiency: Code(s): E53.8 - Deficiency of other specified B group vitamins Status: Acute Assessment and Plan: * B12 level 192.0 * Start Cyanocobalamin 1,000 mg PO daily. (4) Constipation: Code(s): K59.00 - Constipation, unspecified Status: Acute Assessment and Plan: * CT showed fecal stasis within the colon. * Miralax and Bisacodyl suppository to be given. * Encourage oral intake. Plan Chronic and stable conditions 1. Dyslipidemia. On atorvastatin 2. Dementia w/Behavioral disturbance 3. Insomnia. 4. Osteoporosis 5. Recurrent Depression Per family, she is not compliant with her meds due to dementia; attempts are being made [facility] Miscellaneous care 1. Code status. Full 2. Nutrition. heart healthy 3. VTE prophylaxis. Subjective Date/time seen: 10/31/24 10:36 Interval history: Patient calm this morning with sitter at bedside. Patient denies chest pain, palpitations, headache, dizziness, nausea, or vomiting. I called current PCP office Dr. Briana Patel's office. Patient current medications ordered there are HCTZ 12.5 mg PO daily and Sulfasalazine 500 mg PO BID. 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 According to nurse family stated that patient had not been taking home meds for the past 3 months. Patient became upset when family came this afternoon. Spoke with granddaughter Lakeshia that is the POA. Patient got into it with daughter earlier. Patient stating that she does not want to put in a facility and if she is she may cut her throat when she gets there per family. Denies harming herself at present. Review of Systems Review of Systems: All systems reviewed & are unremarkable except as noted in HPI and below Exam Const: General: comfortable and no acute distress Resp: Effort & Inspection: normal respiratory effort Auscultation: clear to auscultation bilaterally Cardio: Rate: regular rate Rhythm: regular rhythm GI: GI Palp: Yes Soft to palpation Auscultation: normal bowel sounds Neuro: Speech: normal speech Extrem: General: pedal edema bilaterally 1+ Psych: Other: Flat affect. Oriented to self. Unable to answer questions. Objective Data Vital Signs Vital Signs: Vital Signs - 24 hr 10/30/24 16:47 10/30/24 21:59 10/31/24 00:51 Temperature 98.0 F Pulse Rate 87 89 84 Respiratory Rate 16 19 17 Blood Pressure 156/87 H 143/83 H 149/80 H Pulse Oximetry 100 99 99 Oxygen Delivery Room Air 10/31/24 01:15 10/31/24 04:45 Temperature 97.1 F L 97 F L Pulse Rate 73 71 Respiratory Rate 18 20 Blood Pressure 130/76 124/69 Pulse Oximetry 98 97 Oxygen Delivery Intake/Output Intake/Output: Intake & Output 10/28/24 10/29/24 10/30/24 10/31/24 23:59 23:59 23:59 23:59 Intake Total 0 Balance 0 Meds/Results Medications: Active Medications Generic Name Dose Route Start Last Admin Trade Name Freq PRN Reason Stop Dose Admin Acetaminophen 650 mg 10/31/24 05:29 Acetaminophen 325 Mg Tablet PO Q4H PRN Mild Pain (1-3) or Fever Bisacodyl 10 mg 10/31/24 05:29 Bisacodyl 10 Mg Suppository RECTAL ONCE PRN Constipation Heparin Sodium (Porcine) 5,000 units 10/31/24 09:00 10/31/24 10:30 Heparin Sodium 5,000 Units/Ml Vial SUB-Q 5,000 units Q12HR JOHN Administration Sodium Chloride 1,000 mls @ 100 mls/hr 10/31/24 05:30 10/31/24 05:57 Normal Saline Iv IV CONT 100 mls/hr .Q10H JOHN Administration Melatonin 5 mg 10/31/24 05:29 Melatonin 5 Mg Tablet PO HS PRN Insomnia Prochlorperazine Edisylate 10 mg 10/31/24 05:29 Prochlorperazine Edisylate 10 Mg/2 Ml Vial IV PUSH Q6H PRN Nausea And Vomiting Radiology Results: ITS Impressions Chest X-Ray 10/30/24 18:01 IMPRESSION: Right sided pleural effusion suspected without focal infiltration Head CT 10/30/24 18:16 Impression: No acute intracranial hemorrhage or suspicious mass effect. Cervical Spine CT 10/30/24 18:18 Impression: Limited evaluation of the cervical spine secondary to significant motion artifact, despite multiple repeated attempts. Repeat evaluation after sedation is suggested if clinical suspicion persists. Hip/Pelvis X-Ray 10/30/24 18:22 IMPRESSION: Degenerative disease, without acute fracture or dislocation. Abdomen/Pelvis CT 10/30/24 23:43 IMPRESSION: Significant bladder distention. No acute findings within the abdomen or pelvis to account for patient's left lower quadrant pain. Labs Labs: Laboratory Results - last 24 hr 10/30/24 10/30/24 10/31/24 19:04 21:55 00:11 WBC 6.1 RBC 3.98 L Hgb 12.5 Hct 38.4 MCV 96.5 MCH 31.4 MCHC 32.6 RDW 13.4 Plt Count 160 MPV 9.8 Immature Gran % (Auto) 0.7 H Neut % (Auto) 75.7 H Lymph % (Auto) 12.2 L [place] % (Auto) 9.6 H Eos % (Auto) 1.5 Baso % (Auto) 0.3 Lymph # (Auto) 0.74 L [place] # (Auto) 0.6 Eos # (Auto) 0.1 Baso # (Auto) 0.0 Abs Immat Gran (auto) 0.04 H Absolute Neuts (auto) 4.6 Absolute Nucleated RBC 0.000 Nucleated RBC % 0.0 % Immature Plt Fraction 2.3 Sodium 139 Potassium 3.7 Chloride 104 Carbon Dioxide 32 H Anion Gap 3 L BUN 13 Creatinine 0.77 Estim Creat Clear Calc 54 Estimated GFR > 60 Glucose 101 POC Capillary Glucose 86 Lactic Acid 0.8 Calcium 9.1 Magnesium Total Bilirubin 0.6 AST 36 ALT 29 Alkaline Phosphatase 58 Ammonia < 9 L Total Creatine Kinase 400 H Troponin I NT-Pro-B Natriuret Pep Total Protein 6.0 L Albumin 3.8 Urine Color Yellow Urine Appearance Clear Urine pH 7.0 Ur Specific [place] 1.014 Urine Protein Negative Urine Glucose (UA) Negative Urine Ketones Negative Ur Blood (Man) Negative Urine Nitrate Negative Urine Bilirubin Negative Urine Urobilinogen 0.2 Leukocyte Esterase Rfl Negative Salicylates < 1.0 L Urine Opiates Screen Negative Urine Methadone Screen Negative Acetaminophen < 10 L Ur Barbiturates Screen Negative Ur Phencyclidine Scrn Negative Ur Amphetamine Screen Negative U Benzodiazepines Scrn Negative Urine Cocaine Screen Negative U Cannabinoids Screen Negative Ethyl Alcohol < 10 Influenza A (RT-PCR) Influenza B (RT-PCR) SARS-CoV-2 RNA (RT-PCR) 10/31/24 10/31/24 10/31/24 00:31 05:59 06:04 WBC RBC Hgb Hct MCV MCH MCHC RDW Plt Count MPV Immature Gran % (Auto) Neut % (Auto) Lymph % (Auto) [place] % (Auto) Eos % (Auto) Baso % (Auto) Lymph # (Auto) [place] # (Auto) Eos # (Auto) Baso # (Auto) Abs Immat Gran (auto) Absolute Neuts (auto) Absolute Nucleated RBC Nucleated RBC % % Immature Plt Fraction Sodium Potassium Chloride Carbon Dioxide Anion Gap BUN Creatinine Estim Creat Clear Calc Estimated GFR Glucose POC Capillary Glucose Lactic Acid Calcium Magnesium 1.9 Total Bilirubin AST ALT Alkaline Phosphatase Ammonia Total Creatine Kinase Troponin I < 0.012 NT-Pro-B Natriuret Pep 356 H Total Protein Albumin Urine Color Urine Appearance Urine pH Ur Specific [place] Urine Protein Urine Glucose (UA) Urine Ketones Ur Blood (Man) Urine Nitrate Urine Bilirubin Urine Urobilinogen Leukocyte Esterase Rfl Salicylates Urine Opiates Screen Urine Methadone Screen Acetaminophen Ur Barbiturates Screen Ur Phencyclidine Scrn Ur Amphetamine Screen U Benzodiazepines Scrn Urine Cocaine Screen U Cannabinoids Screen Ethyl Alcohol Influenza A (RT-PCR) Negative Influenza B (RT-PCR) Negative SARS-CoV-2 RNA (RT-PCR) Negative Quality VTE Prophylaxis VTE prophylaxis: mechanical ordered and pharmacologic ordered
[2024-10-31 11:28] LABS: Creatine Kinase 308 U/L (30-135)
[2024-10-31 14:00] VITALS: BP 135/82; PULSE 77; RESP 16; TEMP 36.3; O2SAT 100
[2024-10-31 15:53] LABS: Vitamin D 25 Hydroxy 92.4 ng/mL
[2024-10-31] MEDS: polyethylene glycoL 3350 17 GM POWD.PACK PO (17:40)
[2024-10-31] MEDS: sulfaSALAzine 500 MG TABLET PO (17:40)
[2024-10-31] MEDS: CYANOCOBALAMIN 1,000 MCG TABLET 1000 MCG PO (17:42)
[2024-10-31] MEDS: BISACODYL 10 MG SUPPOSITORY RECTAL (17:43)
[2024-10-31] MEDS: QUEtiapine FUMARATE 25 MG TABLET PO (20:42)
[2024-10-31] MEDS: MELATONIN 5 MG TABLET PO (20:42)
[2024-10-31 20:55] VITALS: BP 149/91; PULSE 86; RESP 14; TEMP 36.2; O2SAT 99
[2024-11-01 05:54] VITALS: BP 119/73; PULSE 88; RESP 13; TEMP 36.4; O2SAT 98
[2024-11-01 06:19] LABS: Basophils Percent Auto 0.2 % (0.2-1.2); Eosinophils Percent Auto 0.2 % (0-4.4); Hematocrit 39.3 % (37.0-47.0); Hemoglobin 12.9 g/dL (12.0-15.0); Immature Granulocyte Absolute 0.04 K/mm3 (0.00-0.031); Immature Granulocyte Percent A 0.4 % (0-0.5); Immature Platelet Fraction Pct 2.5 % (0.9-11.2); Lymphocytes Percent Auto 6.1 % (18.3-44.2); Mean Corpuscular HGB Conc 32.8 g/dl (32-36); Mean Corpuscular Hemoglobin 31.5 pg (26-34); Mean Corpuscular Volume 96.1 fl (80-100); Mean Platelet Volume 10.4 fl (7.4-10.4); Monocytes Absolute Auto 0.7 K/mm3 (0.1-0.6); Neutrophils Absolute Auto 8.5 K/mm3 (1.3-6.7); Neutrophils Percent Auto 86.1 % (45.5-73.1); Platelet Count Result 147 k/mm3 (150-375); Red Blood Count 4.09 M/mm3 (4.2-5.4); Red Cell Distribution Width 13.4 % (11.5-14.5); White Blood Count 9.8 K/mm3 (4.5-10.0)
[2024-11-01 06:45] LABS: Alanine Aminotransferase 23 U/L (6-35); Albumin Level 3.6 g/dL (3.5-5.1); Alkaline Phosphatase 50 U/L (38-126); Anion Gap 6 mmol/L (4-12); Aspartate Amino Transferase 29 U/L (14-36); Bilirubin,Total 0.8 mg/dL (0.2-1.3); Blood Urea Nitrogen 12 mg/dL (7-17); Carbon Dioxide 26 mmol/L (22-30); Chloride 106 mmol/L (98-107); Creatine Kinase 293 U/L (30-135); Estimated CRCL calculation 65 ml/min; Estimated Glomerular Filt Rate > 60; Glucose 115 mg/dL (65-110); Magnesium 1.9 mg/dL (1.6-2.3); Sodium 138 mmol/L (137-145)
[2024-11-01 08:00] VITALS: PULSE 88; RESP 13; O2SAT 98
[2024-11-01] MEDS: CYANOCOBALAMIN 1,000 MCG TABLET 1000 MCG PO (08:14)
[2024-11-01] MEDS: ACETAMINOPHEN 325 MG TABLET 650 MG PO ×2 (08:14→22:49)
[2024-11-01] MEDS: HEPARIN SODIUM 5,000 UNITS/ML VIAL 5000 UNITS SUB-Q ×2 (08:14→22:50)
[2024-11-01] MEDS: sulfaSALAzine 500 MG TABLET PO ×2 (08:14→18:21)
[2024-11-01] MEDS: polyethylene glycoL 3350 17 GM POWD.PACK PO (08:15)
--- NOTE | 2024-11-01 10:56 | P.PNIM_ITS ---
Progress Note: A&P Assessment and Plan (1) UTI (urinary tract infection): Code(s): N39.0 - Urinary tract infection, site not specified Status: Acute Assessment and Plan: * UA- normal. (2) Fall at home: Code(s): W19.XXXA - Unspecified fall, initial encounter; Y92.009 - Unspecified place in unspecified non-institutional (private) residence as the place of occurrence of the external cause Status: Acute Assessment and Plan: * PT/OT. * CK improving from 400>308>293. * Vitamin D level 92.4. * TSH 3.880. * B12 level 192. * Awaiting placement, patient is not safe to live at home alone. (3) B12 deficiency: Code(s): E53.8 - Deficiency of other specified B group vitamins Status: Acute Assessment and Plan: * B12 level 192.0 * Start Cyanocobalamin 1,000 mg PO daily. (4) Constipation: Code(s): K59.00 - Constipation, unspecified Status: Acute Assessment and Plan: * CT showed fecal stasis within the colon. * Miralax and Bisacodyl ordered. * Bowel movement today. * Encourage oral intake. Plan Chronic and stable conditions 1. Dyslipidemia. On atorvastatin 2. Dementia w/Behavioral disturbance 3. Insomnia. 4. Osteoporosis 5. Recurrent Depression Per family, she is not compliant with her meds due to dementia; attempts are being made to put her in an ECF Miscellaneous care 1. Code status. Full 2. Nutrition. heart healthy 3. VTE prophylaxis. Subjective Date/time seen: 11/01/24 10:56 Interval history: Patient sitting up in chair. Patient denies pain, shortness of breath or thoughts of harming herself. Awaiting placement for patient. Review of Systems Review of Systems: All systems reviewed & are unremarkable except as noted in HPI and below Exam Const: General: comfortable and no acute distress Resp: Effort & Inspection: normal respiratory effort Auscultation: clear to auscultation bilaterally Cardio: Rate: regular rate Rhythm: regular rhythm GI: GI Palp: Yes Soft to palpation Auscultation: normal bowel sounds Neuro: Speech: normal speech Extrem: General: pedal edema on the right 1+ and on the left (trace) Psych: Other: Flat affect. Oriented to self. Objective Data Vital Signs Vital Signs: Vital Signs - 24 hr 10/31/24 14:00 10/31/24 20:55 11/01/24 05:54 Temperature 97.3 F L 97.1 F L 97.5 F L Pulse Rate 77 86 88 Respiratory Rate 16 14 13 Blood Pressure 135/82 149/91 H 119/73 Pulse Oximetry 100 99 98 Intake/Output Intake/Output: Intake & Output 10/29/24 10/30/24 10/31/24 11/01/24 23:59 23:59 23:59 23:59 Intake Total 720 0 Output Total 400 Balance 320 0 Meds/Results Medications: Active Medications Generic Name Dose Route Start Last Admin Trade Name Freq PRN Reason Stop Dose Admin Acetaminophen 650 mg 10/31/24 05:29 11/01/24 08:14 Acetaminophen 325 Mg Tablet PO 650 mg Q4H PRN Administration Mild Pain (1-3) or Fever Cyanocobalamin 1,000 mcg 10/31/24 16:00 11/01/24 08:14 Cyanocobalamin 1,000 Mcg Tablet PO 1,000 mcg QAM JOHN Administration Heparin Sodium (Porcine) 5,000 units 10/31/24 09:00 11/01/24 08:14 Heparin Sodium 5,000 Units/Ml Vial SUB-Q 5,000 units Q12HR JOHN Administration Melatonin 5 mg 10/31/24 05:29 10/31/24 20:42 Melatonin 5 Mg Tablet PO 5 mg HS PRN Administration Insomnia Polyethylene Glycol 17 gm 10/31/24 13:00 11/01/24 08:15 Polyethylene Glycol 3350 17 Gm Powd.Pack PO 17 gm QAM JOHN Administration Prochlorperazine Edisylate 10 mg 10/31/24 05:29 Prochlorperazine Edisylate 10 Mg/2 Ml Vial IV PUSH Q6H PRN Nausea And Vomiting Quetiapine Fumarate 25 mg 11/01/24 21:00 Quetiapine Fumarate 25 Mg Tablet PO HS JOHN Sulfasalazine 500 mg 11/01/24 09:00 Sulfasalazine 500 Mg Tablet PO BID JOHN Radiology Results: ITS Impressions Chest X-Ray 10/30/24 18:01 IMPRESSION: Right sided pleural effusion suspected without focal infiltration Head CT 10/30/24 18:16 Impression: No acute intracranial hemorrhage or suspicious mass effect. Cervical Spine CT 10/30/24 18:18 Impression: Limited evaluation of the cervical spine secondary to significant motion artifact, despite multiple repeated attempts. Repeat evaluation after sedation is suggested if clinical suspicion persists. Hip/Pelvis X-Ray 10/30/24 18:22 IMPRESSION: Degenerative disease, without acute fracture or dislocation. Abdomen/Pelvis CT 10/30/24 23:43 IMPRESSION: Significant bladder distention. No acute findings within the abdomen or pelvis to account for patient's left lower quadrant pain. Labs Labs: Laboratory Results - last 24 hr 10/31/24 11/01/24 06:04 05:31 WBC 9.8 RBC 4.09 L Hgb 12.9 Hct 39.3 MCV 96.1 MCH 31.5 MCHC 32.8 RDW 13.4 Plt Count 147 L MPV 10.4 Immature Gran % (Auto) 0.4 Neut % (Auto) 86.1 H Lymph % (Auto) 6.1 L [place] % (Auto) 7.0 Eos % (Auto) 0.2 Baso % (Auto) 0.2 Lymph # (Auto) 0.60 L [place] # (Auto) 0.7 H Eos # (Auto) 0.0 Baso # (Auto) 0.0 Abs Immat Gran (auto) 0.04 H Absolute Neuts (auto) 8.5 H Absolute Nucleated RBC 0.000 Nucleated RBC % 0.0 % Immature Plt Fraction 2.5 Sodium 138 Potassium 4.0 Chloride 106 Carbon Dioxide 26 Anion Gap 6 BUN 12 Creatinine 0.68 L Estim Creat Clear Calc 65 Estimated GFR > 60 Glucose 115 H Calcium 9.0 Magnesium 1.9 Total Bilirubin 0.8 AST 29 ALT 23 Alkaline Phosphatase 50 Total Creatine Kinase 308 H 293 H Total Protein 6.0 L Albumin 3.6 Vitamin B12 192.0 L Vitamin D 25-Hydroxy 92.4 TSH (Reflex) 3.880 Quality VTE Prophylaxis VTE prophylaxis: mechanical ordered and pharmacologic ordered
[2024-11-01 14:41] VITALS: BP 112/55; PULSE 87; RESP 16; TEMP 36.5; O2SAT 96
[2024-11-01 20:30] VITALS: BP 110/67; PULSE 72; RESP 20; TEMP 37.1; O2SAT 96
[2024-11-01] MEDS: MELATONIN 5 MG TABLET PO (22:48)
[2024-11-01] MEDS: QUEtiapine FUMARATE 25 MG TABLET PO (22:49)
[2024-11-02 04:50] VITALS: BP 90/60; PULSE 65; RESP 20; TEMP 36.1; O2SAT 94
[2024-11-02 06:47] LABS: Basophils Percent Auto 0.6 % (0.2-1.2); Eosinophils Absolute Auto 0.1 K/mm3 (0-0.3); Eosinophils Percent Auto 2.5 % (0-4.4); Hematocrit 40.2 % (37.0-47.0); Hemoglobin 12.3 g/dL (12.0-15.0); Immature Granulocyte Absolute 0.02 K/mm3 (0.00-0.031); Immature Granulocyte Percent A 0.4 % (0-0.5); Lymphocytes Absolute Auto 1.03 K/mm3 (0.9-3.2); Lymphocytes Percent Auto 19.9 % (18.3-44.2); Mean Corpuscular HGB Conc 30.6 g/dl (32-36); Mean Corpuscular Hemoglobin 31.5 pg (26-34); Mean Corpuscular Volume 103.1 fl (80-100); Mean Platelet Volume 10.5 fl (7.4-10.4); Monocytes Absolute Auto 0.6 K/mm3 (0.1-0.6); Monocytes Percent Auto 10.8 % (2.6-8.5); Neutrophils Absolute Auto 3.4 K/mm3 (1.3-6.7); Neutrophils Percent Auto 65.8 % (45.5-73.1); Platelet Count Result 133 k/mm3 (150-375); Red Cell Distribution Width 13.6 % (11.5-14.5); White Blood Count 5.2 K/mm3 (4.5-10.0)
[2024-11-02 06:48] LABS: Alanine Aminotransferase 21 U/L (6-35); Albumin Level 3.4 g/dL (3.5-5.1); Alkaline Phosphatase 45 U/L (38-126); Anion Gap 6 mmol/L (4-12); Aspartate Amino Transferase 27 U/L (14-36); Bilirubin,Total 0.8 mg/dL (0.2-1.3); Blood Urea Nitrogen 20 mg/dL (7-17); Calcium 8.8 mg/dL (8.4-10.2); Carbon Dioxide 26 mmol/L (22-30); Chloride 106 mmol/L (98-107); Creatine Kinase 178 U/L (30-135); Estimated CRCL calculation 58 ml/min; Estimated Glomerular Filt Rate > 60; Glucose 101 mg/dL (65-110); Magnesium 2.1 mg/dL (1.6-2.3); Potassium 4.1 mmol/L (3.4-5.0); Sodium 138 mmol/L (137-145)
[2024-11-02] MEDS: ACETAMINOPHEN 325 MG TABLET 650 MG PO (09:17)
[2024-11-02] MEDS: HEPARIN SODIUM 5,000 UNITS/ML VIAL 5000 UNITS SUB-Q (09:17)
[2024-11-02] MEDS: sulfaSALAzine 500 MG TABLET PO (09:17)
[2024-11-02] MEDS: CYANOCOBALAMIN 1,000 MCG TABLET 1000 MCG PO (09:18)
[2024-11-02] MEDS: polyethylene glycoL 3350 17 GM POWD.PACK PO (09:18)
--- NOTE | 2024-11-02 11:56 | P.DS_ITS ---
DS: Admitting Diagnosis Discharge Date 11/02/24 Admitting Diagnosis UTI Fall at home B12 deficiency Constipation DS: Discharge Diagnosis Discharge Diagnosis (1) UTI (urinary tract infection): Code(s): N39.0 - Urinary tract infection, site not specified Status: Acute (2) Fall at home: Code(s): W19.XXXA - Unspecified fall, initial encounter; Y92.009 - Unspecified place in unspecified non-institutional (private) residence as the place of occurrence of the external cause Status: Acute (3) B12 deficiency: Code(s): E53.8 - Deficiency of other specified B group vitamins Status: Acute (4) Constipation: Code(s): K59.00 - Constipation, unspecified Status: Acute DS: Summary Hospital Course Reason for hospitalization: UTI Fall at home B12 deficiency Constipation Hospital Course: This is a 73 year old female with a significant past medical history of dyslipidemia, dementia, depression, insomnia who presented to the hospital after sustaining a fall. Family did a wellness check and found her on the floor for an unknown amount of time. They brought her in for further evaluation. Chest x-ray showed right-sided pleural effusion suspected without focal infiltrate. Head CT was negative. Cervical spine CT showed motion artifact. Hip and pelvis x-ray was without fracture or dislocation. Abdomen/pelvis CT showed significant bladder distension, no acute findings within the abdomen or pelvis to account for patient's left lower quadrant pain. Initial labs showed a normal white blood cell count of 6.1, blood sugars ranging 86-101, ammonia level less than 9, total CK 400. UA was obtained and was negative. Urine drug screen was negative. Alcohol level was less than 10. Respiratory panel was negative for influenza a and B and COVID. Vitamin B12 level was 192. Total CK trended downward to 178 on discharge. PT and OT evaluated patient and she is now stable for discharge to SNF. She was started on vitamin B12 replacement. She will need to follow up with her primary care doctor in 1-2 weeks. UTI was ruled out with normal UA on admission. No antibiotics needed. Final diagnosis: Vitamin B 12 deficiency Time Spent with Patient Time attestation: Total time spent providing and/or coordinating discharge services: Time spent: Greater than 30 minutes DS: Data Data Completed and Pending Completed studies during hospitalization: Chest x-ray Head CT Cervical spine CT Hip/pelvis x-ray Abdomen/pelvis CT Pending studies at discharge: none Labs on day of discharge: Labs from last 24 hours 11/02/24 05:55 WBC 5.2 RBC 3.90 L Hgb 12.3 Hct 40.2 MCV 103.1 H D MCH 31.5 MCHC 30.6 L RDW 13.6 Plt Count 133 L MPV 10.5 H Immature Gran % (Auto) 0.4 Neut % (Auto) 65.8 Lymph % (Auto) 19.9 [place] % (Auto) 10.8 H Eos % (Auto) 2.5 Baso % (Auto) 0.6 Lymph # (Auto) 1.03 [place] # (Auto) 0.6 Eos # (Auto) 0.1 Baso # (Auto) 0.0 Abs Immat Gran (auto) 0.02 Absolute Neuts (auto) 3.4 Absolute Nucleated RBC 0.000 Nucleated RBC % 0.0 Sodium 138 Potassium 4.1 Chloride 106 Carbon Dioxide 26 Anion Gap 6 BUN 20 H Creatinine 0.77 Estim Creat Clear Calc 58 Estimated GFR > 60 Glucose 101 Calcium 8.8 Magnesium 2.1 Total Bilirubin 0.8 AST 27 ALT 21 Alkaline Phosphatase 45 Total Creatine Kinase 178 H Total Protein 6.0 L Albumin 3.4 L Procedures/Treatments: none Discharge Plan Discharge Attending physician on discharge: Jack Pond Consulting providers: Tara Caruso; Deborah Werner; Kae Styles Discharging Clinician: Emelia Hansen Anticipated Discharge Date/Time: 11/02/24 11:51 Patient Disposition: SNF Activity: as tolerated Diet: as tolerated and heart healthy Discharge Instructions: * Continue taking vitamin B12 Patient Instructions: Vitamin B12 Deficiency (ED) Patient Language: Indonesian Stand Alone Forms: General Discharge Information, [facility] Discharge Follow-up/Referrals: Amanda,Briana Griggs MD [Primary Care Provider] - 1 Week Discharge Medications: New cyanocobalamin (vitamin B-12) [Vitamin B-12] 1,000 mcg Tablet 1,000 mcg PO QAM Qty: 30 0RF Continued hydrochlorothiazide 12.5 mg tablet 12.5 mg PO DAILY sulfasalazine 500 mg Tablet 0.5 g PO BID quetiapine 25 mg tablet 25 mg PO HS Date of admission: 10/31/24 00:13 Primary Care Provider: Amanda,Briana Griggs Admitting Provider: Faisal Barrios Attending physician on admission: Emelia Hansen Condition: Improved Quality VTE Prophylaxis VTE prophylaxis: mechanical ordered and pharmacologic ordered Hospitalist MIPS Heart Failure (Exclusion) Patient has history of Heart Transplant or Left Ventricular Assistive Device?: No IF YES, STOP HERE Heart Failure (Qualifier) Patient has current or prior documentation of LVEF less than or equal to 40%, or mod/servere depressed LVSF?: No IF NO, STOP HERE
[2024-11-02 12:00] VITALS: BP 102/64
[2024-11-02 13:56] VITALS: BP 105/54; PULSE 80; RESP 18; TEMP 36.7; O2SAT 96
== END 2024-11-02 15:15 ==
LOC: ANHED 10-31 00:19 → ANH3MEDSUR 10-31 14:26
PROVIDERS: Nurse Practitioner Family; Admitting Provider Internal Medicine; Emergency Provider Preventive Medicine Aerospace Medicine; PCP Student in an Organized Health Care Education/Training Program; Visit Provider Nurse Practitioner Acute Care
DX: E53.8 Deficiency of other specified B group vitamins (principal); K59.00 Constipation, unspecified; N32.89 Other specified disorders of bladder; W18.30XA Fall on same level, unspecified, initial encounter; R29.6 Repeated falls; R74.8 Abnormal levels of other serum enzymes; R26.81 Unsteadiness on feet; M79.89 Other specified soft tissue disorders; E78.5 Hyperlipidemia, unspecified; F03.918 Unspecified dementia, unspecified severity, with other behavioral disturbance; G47.00 Insomnia, unspecified; M81.0 Age-related osteoporosis without current pathological fracture; F33.9 Major depressive disorder, recurrent, unspecified; L40.50 Arthropathic psoriasis, unspecified; Z75.1 Person awaiting admission to adequate facility elsewhere; Z20.822 Contact with and (suspected) exposure to COVID-19; Z79.899 Other long term (current) drug therapy; Z91.148 Patient's other noncompliance with medication regimen for other reason
CPT/HCPCS: 36415; 70450; 71046; 72125; 73502; 74177; 80053; 80143; 80179; 80307; 81003; 82077; 82140; 82306; 82550; 82607; 82948; 83605; 83735; 83880; 84443; 84484; 85025; 85055; 87636; 96372; 97110; 97161; 97166; 97530; 99285; A9270; G0378; J1644; J2359; J7030; Q9967